=== PATIENT | male | born 1975 | race Caucasian/White ===

== ENCOUNTER → 2020-08-18 09:40 | Outpatient (BNVA) | payer MEDICAID, SELFPAY | PROVIDERS: Family Provider Family Medicine; PCP Family Medicine; Visit Provider Nurse Practitioner | DX: F33.1 Major depressive disorder, recurrent, moderate (principal); F15.21 Other stimulant dependence, in remission; F17.210 Nicotine dependence, cigarettes, uncomplicated; F41.1 Generalized anxiety disorder | CPT/HCPCS: 99215 ==

== ENCOUNTER 2020-09-08 18:32 | Emergency (ER) | payer MEDICAID, SELFPAY ==
--- NOTE | 2020-09-08 18:39 | ECG_ITS ---
[facility] Test Date: 2020-09-08 Pat Name: Fran Salinas Department: Room: Gender: Male Stone [employer] Sander: : 1975 Requested By: Javed Dozier Order Number: [id number] Shirley MD: Mona Echavarria M.D. Measurements Intervals [place] Rate: 82 P: 40 NM: 160 QRS: -27 QRSD: 90 T: 44 QT: 329 QTc: 384 Interpretive Statements SINUS RHYTHM BORDERLINE LEFT AXIS DEVIATION [QRS AXIS < -20] Compared to ECG 01/03/2018 16:58:03 No significant changes Electronically Signed On 09-09-2020 18:25:58 CDT by Mona Echavarria M.D. [email or web address] [id number]
--- NOTE | 2020-09-08 18:39 | XRR_ITS ---
PROCEDURE INFORMATION: Exam: XR Chest Exam date and time: 09/08/2020 6:51 PM Age: 44 years old Clinical indication: Left-sided chest pain; Additional info: Cp TECHNIQUE: Imaging protocol: XR of the chest. Views: 1 view. COMPARISON: CR Chest 1 [place] [id number] 03/04/2018 12:26 AM FINDINGS: The lungs are clear of infiltrate. There are no pleural effusions or pneumothorax. The heart size and pulmonary vascularity are normal. XR/XR chest 1V portable [id number] IMPRESSION: No active disease. The
[2020-09-08 18:41] VITALS: BP 151/89; PULSE 88; RESP 18; TEMP 36.7; O2SAT 99; BMI 35.6
[2020-09-08 18:56] VITALS: BP 161/92; PULSE 87; RESP 23; O2SAT 99
[2020-09-08 19:16] VITALS: BP 154/80; PULSE 82; RESP 25; O2SAT 98
[2020-09-08 19:20] LABS: Basophils # 0.1 10^3/uL (0.0-0.1); Basophils % 0.8 %; Eosinophils # 0.1 10^3/uL (0.0-0.8); Eosinophils % 2.1 %; Hematocrit 39.1 % (42.0-52.0); Hemoglobin 11.6 g/dL (11.7-16.6); Lymphocytes # 0.9 10^3/uL (0.8-4.8); Lymphocytes % 14.2 %; Mean Corpuscular HGB Conc 29.7 g/dL (30.0-36.0); Mean Corpuscular Hemoglobin 28.1 pg (28.0-34.0); Mean Corpuscular Volume 94.7 fL (80-94); Mean Platelet Volume 10.2 fL (7.4-10.4); Monocytes # 0.7 10^3/uL (0.2-0.9); Monocytes % 10.1 %; Neutrophils # 4.75 10^3/uL (1.8-7.7); Neutrophils % 72.5 %; Nucleated Red Blood Cells % 0 %; Platelet Count 207 10^3/cmm (130-400); Red Blood Count 4.13 10^6/uL (4.1-5.3); Red Cell Distribution Width 14.9 % (12.1-15.1); White Blood Count 6.6 10^3/uL (4.0-10.0)
[2020-09-08 19:42] LABS: Alanine Aminotransferase 17 U/L (0-41); Albumin Level 4.1 g/dL (3.5-5.2); Alkaline Phosphatase 63 IU/L (40-130); Aspartate Amino Transferase 25 U/L (0-40); Blood Urea Nitrogen 10 mg/dL (6-20); Calcium 8.2 mg/dL (8.5-10.5); Carbon Dioxide 20 mmol/L (22-29); Chloride 107 mmol/L (98-107); Glomerular Filtration Rate 92.1 mL/min (90-130); Glucose 90 mg/dL (65-115); Lipase 55 U/L (13-60); Osmolality Calculated 287 mOsm/kg (285-295); Sodium 139 mmol/L (136-145); Total Bilirubin 0.2 mg/dL (0.15-1.2); Total Protein 6.1 g/dL (6.6-8.7)
[2020-09-08 19:46] LABS: Troponin(5th) Baseline 6 ng/L (0-15)
[2020-09-08 19:53] LABS: Anion Gap 16.6 (5-19); Potassium 4.6 mmol/L (3.5-5.1)
[2020-09-08 20:32] VITALS: BP 125/80; PULSE 80; RESP 22; O2SAT 100
--- NOTE | 2020-09-08 20:39 | ECG_ITS ---
[facility] Test Date: 2020-09-08 Pat Name: Fran Salinas Department: Room: Gender: Male Certified Respiratory Therapist: : 1975 Requested By: Javed Dozier Order Number: [id number] Shirley MD: Mona Echavarria M.D. Measurements Intervals [place] Rate: 75 P: 41 RI: 164 QRS: -23 QRSD: 87 T: 38 QT: 346 QTc: 388 Interpretive Statements SINUS RHYTHM WITH SINUS ARRHYTHMIA BORDERLINE LEFT AXIS DEVIATION [QRS AXIS < -20] Compared to ECG 01/03/2018 16:58:03 No significant changes Electronically Signed On 09-09-2020 18:27:54 CDT by Mona Echavarria M.D. [id number]
[2020-09-08 20:48] LABS: Amphetamines Screen Urine Negative (Negative); Barbiturates Screen Urine Negative (Negative); Benzodiazepines Screen Urine Negative (Negative); Cocaine Screen Urine Negative (Negative); Opiate Screen Urine Negative (Negative); PCP Screen Urine Negative (Negative); THC Screen Urine Negative (Negative)
[2020-09-08 21:25] LABS: Troponin 5 2HR Delta 0 ABS# (0-10)
--- NOTE | 2020-09-08 22:07 | W.ED.CHESTPA ---
HPI - Chest Pain General: Chief Complaint: Chest Pain Stated Complaint: CP/left arm pain Time Seen by Provider: 09/08/20 18:44 Source: patient Mode of arrival: ambulatory Limitations: no limitations History of Present Illness: HPI narrative: 44 male patient presents to ER with left sided chest pain that radiates down his arm. pt states this has been going on for about a month and is intermittent. Pt stats it seems worse with exertion. Pt stats he is a past meth addict but has not used in 37 days. pt denies any fever, shortness of breath, diaphoresis or nausea pt states his pain is currenty gone. pt states he has hx of high blood pressure both otherwise healthy Associated symptoms: Deny abdominal pain, diaphoresis, dyspnea, fever(s), nausea, palpitations, syncope or vomiting Review of Systems Const: Denies: fever(s), chills, body aches, change in appetite, change in weight, fatigue, malaise or diaphoresis Eyes: Denies: change in vision, blurry vision, blind spots, photophobia, eye discomfort, eye discharge, eye redness, floaters or seeing flashes ENMT: Denies: throat pain, uvular edema, enlarged tonsils, odynophagia, hoarseness, mouth pain, swelling of lips/tongue, oral sores, bleeding gums, dental pain, dry mouth, ear or mastoid pain, ear discharge, change in hearing, tinnitus, disequilibrium, nasal discharge, nasal congestion, post nasal drip or sinus pain Card: Reports: chest pain; Denies: palpitations, irregular heart rhythm, edema, swelling of feet/ankles, lightheadedness, syncope, pre-syncope, dyspnea on exertion, orthopnea, leg pain with exertion or acrocyanosis Resp: Denies: dyspnea, productive cough, non-productive cough, wheezing, stridor, pain on inspiration, change in phlegm color, hemoptysis or chest congestion GI: Denies: abdominal pain, nausea, vomiting, hematemesis, dysphagia, diarrhea, constipation, GI cramping, change in bowel habits or rectal pain : Denies: flank pain, dysuria, urinary frequency, urinary urgency, urinary hesitancy or hematuria Musc: Denies: neck pain, back pain, extremity pain, extremity swelling, joint pain, joint swelling, joint redness, joint warmth or deformity Skin/Breast: Denies: rash, pruritus, erythema, sores, new lesions, changes in skin color or dry skin Neuro: Denies: headache(s), numbness in extremities, weakness in extremities, sensory changes, lack of coordination, difficulty walking, frequent falls, dizziness, vertigo, confusion, behavioral changes, Slurred speech present, difficulty communicating thoughts or seizure-like activity Psych: Denies: anxiety, depression, suicidal ideation or homicidal ideation Endo: Denies: polyuria, polydipsia, tired all the time, cold intolerance, excessive sweating, flushing, hot flashes or heat intolerance Félix/Lymph: Denies: easy bruising, easy bleeding, petechiae, purpura, enlarged lymph nodes or tender lymph nodes All/Imm: Denies: urticaria, throat swelling, tongue swelling, facial swelling, acute wheezing or itchy eyes PFSH ED PFSH: Medical History Adderall use disorder, moderate, in sustained remission, in controlled environment, dependence Generalized anxiety disorder Major depressive disorder, recurrent, moderate Nicotine dependence, cigarettes, uncomplicated Physical Exam Const: COMMON NORMALS: no acute distress, patient oriented x3, healthy appearing, alert and well nourished GENERAL APPEARANCE: cooperative, comfortable, well kempt and well developed; not ill appearing ORIENTATION/CONSCIOUSNESS: Yes awake, Yes oriented to person, Yes oriented to place and Yes oriented to time HENMT: COMMON NORMALS: normocephalic, atraumatic, hearing grossly normal bilaterally, external ears normal, EAC's normal, TM's normal bilaterally, Normal external nose present, Normal nasal mucous membranes and turbinates present and moist oral mucous membranes HEAD & SCALP: normal to inspection, normocephalic and atraumatic FACE & SINUS: normal facial exam, sinuses nontender and face symmetric NOSE: Normal external nose present, Normal nares present, Normal nasal mucous membranes and turbinates present, No nasal discharge present and Abnormal external nose present EXTERNAL EAR: Yes external ears normal and Yes mastoids normal EXTERNAL AUDITORY CANAL: EAC's normal TYMPANIC MEMBRANE: TM's normal bilaterally MOUTH: Normal oral and palatal mucosa present, lip normal, tongue normal and Normal salivary glands and ducts present THROAT: posterior oropharynx normal, tonsils normal and uvula midline; no uvular edema Eye: COMMON NORMALS: Equal, round and reactive pupils present, EOMs intact bilaterally, conjunctivae normal, no scleral icterus and no papilledema GENERAL EYE: appearance normal, both eyes and all related structures EYELID: eyelids normal CONJUNCTIVA: Yes conjunctivae normal SCLERA: sclerae normal CORNEA: Yes corneas normal PUPIL: Yes Equal, round and reactive pupils present DIRECT OPHTHALMOSCOPY: Yes no papilledema Neck/C-Spine: COMMON NORMALS: full ROM, no lymphadenopathy, supple, no meningeal signs, no JVD and Thyroid normal GENERAL: Yes normal visual inspection and Yes trachea midline THYROID: Thyroid normal CERVICAL SPINE: Yes cervical ROM normal Lymph: LYMPHATIC: no lymphadenopathy noted and no lymphedema noted Chest: COMMONS NORMALS: normal inspection of the chest and normal palpation of entire chest wall Resp: COMMON NORMALS: normal respiratory effort, No retractions, No use of accessory muscles and clear to auscultation bilaterally EFFORT & INSPECTION: Yes able to speak in complete sentences and Yes symmetric chest movement AUSCULTATION: clear to auscultation bilaterally Cardio: COMMON NORMALS: no JVD, regular rate and regular rhythm RATE: regular rate RHYTHM: regular rhythm GI: COMMON NORMALS: Normal to inspection, nondistended, normoactive bowel sounds present, Soft to palpation, non-tender, No hepatosplenomegaly present, no masses and no bruits INSPECTION: Yes normal to inspection AUSCULTATION: Yes normoactive bowel sounds PALPATION: Yes Soft to palpation and Yes No hepatosplenomegaly present PERCUSSION: normal to percussion RECTAL EXAM: Yes deferred : COMMON NORMALS: Yes no CVA tenderness BLADDER/KIDNEY EXAM: Yes no CVA tenderness Back/Pelvis: COMMON NORMALS: no CVA tenderness, thoracic and lumbar spine normal to inspection, no thoracic nor lumbar tenderness and thoraco-lumbar ROM normal THORACIC SPINE/UPPER BACK: Yes normal to inspection LUMBAR SPINE/LOWER BACK: Yes normal to inspection Extremity: COMMON NORMALS: normal to inspection, full ROM and capillary refill normal GENERAL: Yes normal exam except as noted Neuro: COMMON NORMALS: patient oriented x3, CN's II-XII intact bilaterally, moves all extremities, no focal motor deficits, no sensory deficits noted and gait normal SENSORIUM/ORIENTATION: Yes alert, Yes oriented to person, Yes oriented to place and Yes oriented to time MENINGEAL SIGNS: Yes no meningeal signs CRANIAL NERVES: Yes CN normal except as noted SPEECH: speech normal GAIT: Yes Normal gait present SENSORY EXAM: Yes extremities MOTOR EXAM: 5/5 motor strength present throughout Psych: COMMON NORMALS: mental status grossly normal, Normal thought process present, cooperative, normal affect, speech normal, activity/motor behavior normal, denies hallucinations, denies homicidal ideation and denies suicidal ideation APPEARANCE: Yes grossly normal and Yes well kempt ATTITUDE: Yes calm ACTIVITY/MOTOR BEHAVIOR: Yes appropriate eye contact SPEECH: Yes normal speech THOUGHT PROCESS: Normal thought process present THOUGHT CONTENT: Yes Normal thought content present ATTENTION/CONCENTRATION: Yes attention grossly intact MEMORY/COGNITION: Yes memory grossly intact INSIGHT: Good insight present (Psych) JUDGEMENT: Good judgement present (Psych) Skin: COMMON NORMALS: no rashes or lesions noted, no wounds, turgor normal, no jaundice, no petechiae and no mottling GENERAL SKIN EXAM: no rashes or lesions noted and turgor normal Course Vital Signs: Vital signs: Vital Signs Temperature 98.1 F 09/08/20 18:41 Pulse Rate 80 09/08/20 20:32 Respiratory Rate 22 H 09/08/20 20:32 Blood Pressure 125/80 09/08/20 20:32 Pulse Oximetry 100 09/08/20 20:32 MDM - Chest Pain MDM Narrative: Medical decision making narrative: Pt is well appearing non toxic and in no acute distress. chest xray does not reveal any acute findings. Pt EKG does not reveal any st elevation or depression delta trop is 0 this making cardiac ischemia unlikely. PE considered but patient denies shortness of breath states pain has been intermittent x 1 month pts vss no tachycarida. I do not feel further testing is warranted. I didscussed with patient need for stress test and will refer him to cardiology for such. pt is to follow up with pcp in 1-2 days. Pt states he wants to go home and feels like he does not need hospital observation Differential Diagnosis: Cardiac arrest differential diagnosis: Likely acute massive pulmonary embolism, acute respiratory failure and acute myocardial infarction Lab Data: Labs: Lab Results 09/08/20 09/08/20 09/08/20 Range/Units 19:13 19:13 19:13 WBC 6.6 (4.0-10.0) 10^3/ uL RBC 4.13 (4.1-5.3) 10^6/u L Hgb 11.6 L (11.7-16.6) g/dL Hct 39.1 L (42.0-52.0) % MCV 94.7 H (80-94) fL MCH 28.1 (28.0-34.0) pg MCHC 29.7 L (30.0-36.0) g/dL RDW 14.9 (12.1-15.1) % Plt Count 207 (130-400) 10^3/c mm MPV 10.2 (7.4-10.4) fL Neut % (Auto) 72.5 % Lymph % (Auto) 14.2 % Shelby % (Auto) 10.1 % Eos % (Auto) 2.1 % Baso % (Auto) 0.8 % Neut # (Auto) 4.75 (1.8-7.7) 10^3/u L Lymph # (Auto) 0.9 (0.8-4.8) 10^3/u L Shelby # (Auto) 0.7 (0.2-0.9) 10^3/u L Eos # (Auto) 0.1 (0.0-0.8) 10^3/u L Baso # (Auto) 0.1 (0.0-0.1) 10^3/u L Nucleated RBC % (a uto) 0 % Nucleated RBCs # 0.0 /100WBC Sodium 139 (136-145) mmol/L Potassium 4.6 (3.5-5.1) mmol/L Chloride 107 (98-107) mmol/L Carbon Dioxide 20 L (22-29) mmol/L Anion Gap 16.6 (5-19) BUN 10 (6-20) mg/dL Creatinine 0.9 (0.7-1.2) mg/dL GFR Calculation 92.1 (90-130) mL/min Glucose 90 (65-115) mg/dL Calculated Osmolal ity 287 (285-295) mOsm/k g Calcium 8.2 L (8.5-10.5) mg/dL Total Bilirubin 0.2 (0.15-1.2) mg/dL AST 25 (0-40) U/L ALT 17 (0-41) U/L Alkaline Phosphata se 63 (40-130) IU/L Troponin T Baselin e 6 (0-15) ng/L Troponin T 120 Min [place] (0-15) ng/L Delta Troponin T (0-10) ABS# Total Protein 6.1 L (6.6-8.7) g/dL Albumin 4.1 (3.5-5.2) g/dL Globulin 2.0 (1.3-4.6) g/dL Lipase 55 (13-60) U/L Urine Opiates Scre en (Negative) ng/mL Ur Barbiturates Sc reen (Negative) ng/mL Ur Phencyclidine S crn (Negative) ng/mL Ur Amphetamines Sc reen (Negative) ng/mL U Benzodiazepines Scrn (Negative) ng/mL Urine Cocaine Scre en (Negative) ng/mL U Marijuana (THC) Screen (Negative) ng/mL 09/08/20 09/08/20 Range/Units 20:34 21:03 WBC (4.0-10.0) 10^3/ uL RBC (4.1-5.3) 10^6/u L Hgb (11.7-16.6) g/dL Hct (42.0-52.0) % MCV (80-94) fL MCH (28.0-34.0) pg MCHC (30.0-36.0) g/dL RDW (12.1-15.1) % Plt Count (130-400) 10^3/c mm MPV (7.4-10.4) fL Neut % (Auto) % Lymph % (Auto) % Shelby % (Auto) % Eos % (Auto) % Baso % (Auto) % Neut # (Auto) (1.8-7.7) 10^3/u L Lymph # (Auto) (0.8-4.8) 10^3/u L Shelby # (Auto) (0.2-0.9) 10^3/u L Eos # (Auto) (0.0-0.8) 10^3/u L Baso # (Auto) (0.0-0.1) 10^3/u L Nucleated RBC % (a uto) % Nucleated RBCs # /100WBC Sodium (136-145) mmol/L Potassium (3.5-5.1) mmol/L Chloride (98-107) mmol/L Carbon Dioxide (22-29) mmol/L Anion Gap (5-19) BUN (6-20) mg/dL Creatinine (0.7-1.2) mg/dL GFR Calculation (90-130) mL/min Glucose (65-115) mg/dL Calculated Osmolal ity (285-295) mOsm/k g Calcium (8.5-10.5) mg/dL Total Bilirubin (0.15-1.2) mg/dL AST (0-40) U/L ALT (0-41) U/L Alkaline Phosphata se (40-130) IU/L Troponin T Baselin e (0-15) ng/L Troponin T 120 Min [place] 6.00 (0-15) ng/L Delta Troponin T 0 (0-10) ABS# Total Protein (6.6-8.7) g/dL Albumin (3.5-5.2) g/dL Globulin (1.3-4.6) g/dL Lipase (13-60) U/L Urine Opiates Scre en Negative (Negative) ng/mL Ur Barbiturates Sc reen Negative (Negative) ng/mL Ur Phencyclidine S crn Negative (Negative) ng/mL Ur Amphetamines Sc reen Negative (Negative) ng/mL U Benzodiazepines Scrn Negative (Negative) ng/mL Urine Cocaine Scre en Negative (Negative) ng/mL U Marijuana (THC) Screen Negative (Negative) ng/mL Discharge Plan Discharge Patient Disposition: Home Clinical Impression: Chest pain Qualifiers: Chest pain type: intercostal pain Qualified Code(s): R07.82 - Intercostal pain Condition: Stable Prescriptions: No Action mirtazapine 15 mg tablet 15 mg PO BEDTIME RF: 0 prazosin 2 mg capsule 2 mg PO BEDTIME RF: 0 losartan 25 mg tablet 25 mg PO DAILY RF: 0 Tylenol Extra Strength 500 mg Tablet 1,000 mg PO PRN RF: 0 ibuprofen 200 mg Tablet 400 mg PO PRN RF: 0 hydroxyzine pamoate 25 mg Capsule 25 mg PO TID PRN (Reason: Anxiety) RF: 0 Discharge Orders: Discharge ED (Routine); Ordered 09/08/20 Ordered By: Anusha Cintron Discharge Diet: Advance as tolerated Discharge Activity: Increase activity as tolerated Patient Instructions: Opioid Safety Activity Restrictions/Additional Instructions: ase management will call you with cardiology follow up for stress test Please follow up with your PCP in 1-2 days Please return to ER with any chest pain shortness of breath or any other concerning symptoms Coding Level of Care Code ED Nurses' Registry Director for Nadja Pina
[2020-09-08 22:28] VITALS: BP 138/73; PULSE 81; RESP 18; O2SAT 99
--- NOTE | 2020-09-09 10:33 | DCPLANNER ---
dairy bar manager had message to schedule a follow up appointment for patient with heart care. dairy bar manager called patient to ensure that patient wanted the referral to heart care, patient stated that he did. dairy bar manager called heart care, spoke with Ursula, gave clinic patients information, a follow up appointment was scheduled for , September 17, 2020 at 10:[address] Mondragon. dairy bar manager called patient and gave patient the appointment information.
--- NOTE | 2020-11-16 08:12 | DCPLANNER ---
Patient had a follow up appointment scheduled for 09.17.[address] Echavarria at [facility] - patient did attend appointment.
== END 2020-09-08 22:30 | disposition home or self-care (01) ==
PROVIDERS: Emergency Medicine; Emergency Provider Registered Nurse
DX: R07.82 Intercostal pain (principal)
CPT/HCPCS: 36415; 71045; 80053; 80306; 83690; 84484; 85025; 93005; 99283

== ENCOUNTER 2020-09-27 07:40 | Emergency (ER) | payer MEDICAID, SELFPAY ==
[2020-09-27 07:45] VITALS: BP 157/92; PULSE 107; RESP 18; TEMP 36.8; O2SAT 99; BMI 34.5
--- NOTE | 2020-09-27 07:51 | CTR_ITS ---
PROCEDURE INFORMATION: Exam: CT Head Without Contrast Exam date and time: 09/27/2020 7:56 AM Age: 44 years old Clinical indication: Injury or trauma; Fall; Blunt trauma (contusions or hematomas); Consciousness not specified; Additional info: Fall, head injury TECHNIQUE: Imaging protocol: Computed tomography of the head without contrast. Radiation optimization: All CT scans at this facility use at least one of these dose optimization techniques: automated exposure control; mA and/or kV adjustment per patient size (includes targeted exams where dose is matched to clinical indication); or iterative reconstruction. COMPARISON: MRI Head w/wo* [id number] 03/06/2017 8:29 AM RADIATION DOSE METRICS: Total DLP (mGy-cm): 900.94 FINDINGS: Brain: Normal. No hemorrhage. Unremarkable white matter. No mass effect. Cerebral ventricles: No ventriculomegaly. Paranasal sinuses: Mucosal thickening of ethmoid and maxillary sinuses. No fluid levels. Mastoid air cells: Visualized mastoid air cells are well aerated. Bones/joints: Unremarkable. No acute fracture. Soft tissues: Unremarkable. CT/CT head wo con* [id number] IMPRESSION: No acute intracranial abnormality. Radiation Dose CTDIVOL = (mGy): DLP = 900.94 (mGy-cm)
--- NOTE | 2020-09-27 07:51 | XRR_ITS ---
PROCEDURE INFORMATION: Exam: XR Chest Exam date and time: 09/27/2020 7:56 AM Age: 44 years old Clinical indication: Pain; Chest pressure; Additional info: Chest pain TECHNIQUE: Imaging protocol: XR of the chest. Views: 1 view. COMPARISON: CR (CHEST, ) 09/08/2020 6:51 PM FINDINGS: Lungs: No lobar consolidation. Pleural spaces: Unremarkable. No pleural effusion. No pneumothorax. Heart/Mediastinum: Stable cardiomediastinal silhouette. Bones/joints: Likely overlapping skin fold or partial density related to the lower right scapula manifest curvilinear opacity at the right lateral mid chest. XR/XR chest 1V portable [id number] IMPRESSION: 1. No acute cardiopulmonary process. 2. Probable partial summation densities or overlapping skin fold at the mid right lateral chest wall is doubtful for a pleural based or extrapleural abnormality. Finding was not definitely present on the recent comparison chest 09/08/2020. Further follow-up two view chest is recommended when patient's condition allows.
--- NOTE | 2020-09-27 07:53 | ECG_ITS ---
[facility] Test Date: 2020-09-27 Pat Name: Fran Salinas Department: Room: Gender: Male Process Expert: : 1975 Requested By: Moreno Blakely Order Number: [id number] Watson MD: Lalo Weathers M.D. Measurements Intervals [place] Rate: 82 P: 13 MN: 169 QRS: 86 QRSD: 85 T: 14 QT: 352 QTc: 413 Interpretive Statements SINUS RHYTHM Compared to ECG 09/08/2020 20:36:29 Sinus arrhythmia no longer present Electronically Signed On 09-27-2020 16:00:57 CDT by Lalo Weathers M.D. [id number]
--- NOTE | 2020-09-27 07:57 | W.ED.WEAKNES ---
HPI - Weakness General: Chief complaint: Dizziness Stated complaint: sob, cough n/v Time Seen by Provider: 09/27/20 07:43 Source: patient Limitations: no limitations History of Present Illness: HPI Narrative: Patient presents with 2-day history of generalized weakness with chills and sweats and cough. He does have some chest pain and left arm pain but this is also a chronic ongoing issue for him that he has been worked up with cardiology for. He states that yesterday he was throwing up and then has been very weak and dizzy today. Has also been coughing quite a bit. He states that he also slipped in the shower and fell and hit his head and had positive LOC. He states that he generally just feels weak all over. Complaint: generalized weakness Onset (ago): day(s) (2) Associated symptoms: Reports chest pain, chills, headache(s), nausea and vomiting Review of Systems Const: Reports: chills, body aches and fatigue Eyes: Denies: change in vision ENMT: Denies: throat pain or nasal congestion Card: Reports: chest pain Resp: Reports: non-productive cough GI: Reports: nausea and vomiting; Denies: abdominal pain : Denies: flank pain or difficulty urinating Musc: Denies: neck pain Skin/Breast: Denies: rash Neuro: Reports: headache(s) and dizziness Psych: Reports: anxiety Endo: Denies: polyuria All/Imm: Denies: urticaria or throat swelling PFS ED PFSH: Medical History Adderall use disorder, moderate, in sustained remission, in controlled environment, dependence Generalized anxiety disorder Major depressive disorder, recurrent, moderate Nicotine dependence, cigarettes, uncomplicated Family History Father Dementia Stroke Myocardial infarction Mother Myocardial infarction Social History Smoking and tobacco status: current every day smoker Alcohol intake: former Physical Exam Const: COMMON NORMALS: no acute distress and alert GENERAL APPEARANCE: cooperative and comfortable; not ill appearing ORIENTATION/CONSCIOUSNESS: Yes oriented to person, Yes oriented to place and Yes oriented to time HENMT: COMMON NORMALS: normocephalic and Normal external nose present HEAD & SCALP: normal to inspection and normocephalic FACE & SINUS: normal facial exam NOSE: Normal external nose present MOUTH: Normal oral and palatal mucosa present Eye: COMMON NORMALS: Equal, round and reactive pupils present PUPIL: Yes Equal, round and reactive pupils present EOM: No EOM abnormal Neck/C-Spine: COMMON NORMALS: full ROM and no JVD GENERAL: Yes normal visual inspection CERVICAL SPINE: Yes cervical ROM normal Resp: COMMON NORMALS: normal respiratory effort and clear to auscultation bilaterally AUSCULTATION: clear to auscultation bilaterally Cardio: COMMON NORMALS: no JVD, regular rate and regular rhythm RATE: regular rate RHYTHM: regular rhythm GI: COMMON NORMALS: Normal to inspection, nondistended, normoactive bowel sounds present, Soft to palpation, non-tender, No hepatosplenomegaly present, no masses and no bruits PALPATION: Yes Soft to palpation and Yes No hepatosplenomegaly present Neuro: SENSORIUM/ORIENTATION: Yes alert, Yes oriented to person, Yes oriented to place and Yes oriented to time CRANIAL NERVES: Yes CN normal except as noted Skin: TRAUMA: abrasion (Abrasion noted to the front of the forehead) Course Vital Signs: Vital signs: Vital Signs Temperature 98.3 F 09/27/20 07:45 Pulse Rate 76 09/27/20 10:15 Respiratory Rate 22 H 09/27/20 10:15 Blood Pressure 145/73 09/27/20 10:15 Pulse Oximetry 98 09/27/20 10:15 MDM - Weakness MDM Narrative: Medical decision making narrative: No significant abnormality noted on labs or imaging. [facility] Lab Data: Labs: Lab Results 09/27/20 09/27/20 09/27/20 Range/Units 08:10 08:10 08:10 WBC 8.7 (4.0-10.0) 10^3/ uL RBC 4.31 (4.1-5.3) 10^6/u L Hgb 12.3 (11.7-16.6) g/dL Hct 38.3 L (42.0-52.0) % MCV 88.9 (80-94) fL MCH 28.5 (28.0-34.0) pg MCHC 32.1 (30.0-36.0) g/dL RDW 15.5 H (12.1-15.1) % Plt Count 271 (130-400) 10^3/c mm MPV 9.9 (7.4-10.4) fL Neut % (Auto) 68.3 % Lymph % (Auto) 24.0 % [place] % (Auto) 6.1 % Eos % (Auto) 1.0 % Baso % (Auto) 0.3 % Neut # (Auto) 5.94 (1.8-7.7) 10^3/u L Lymph # (Auto) 2.1 (0.8-4.8) 10^3/u L [place] # (Auto) 0.5 (0.2-0.9) 10^3/u L Eos # (Auto) 0.1 (0.0-0.8) 10^3/u L Baso # (Auto) 0.0 (0.0-0.1) 10^3/u L Nucleated RBC % (a uto) 0 % Nucleated RBCs # 0.0 /100WBC Sodium 140 (136-145) mmol/L Potassium 5.2 H (3.5-5.1) mmol/L Chloride 104 (98-107) mmol/L Carbon Dioxide 21 L (22-29) mmol/L Anion Gap 20.2 H (5-19) BUN 21 H (6-20) mg/dL Creatinine 1.3 H (0.7-1.2) mg/dL GFR Calculation 60.2 L (90-130) mL/min Glucose 108 (65-115) mg/dL Calculated Osmolal ity 294 (285-295) mOsm/k g Lactic Acid 1.0 (0.5-2.2) mmol/L Calcium 9.0 (8.5-10.5) mg/dL Total Bilirubin 0.6 (0.15-1.2) mg/dL AST 20 (0-40) U/L ALT 17 (0-41) U/L Alkaline Phosphata se 68 (40-130) IU/L Troponin T Baselin e (0-15) ng/L Troponin T 120 Min [place] (0-15) ng/L Delta Troponin T (0-10) ABS# C-Reactive Protein 4.7 (0.0-4.9) mg/L Total Protein 7.1 (6.6-8.7) g/dL Albumin 4.8 (3.5-5.2) g/dL Globulin 2.3 (1.3-4.6) g/dL SARS-CoV-2 Ag (Rap id) (Negative) 09/27/20 09/27/20 09/27/20 Range/Units 08:10 08:10 09:57 WBC (4.0-10.0) 10^3/ uL RBC (4.1-5.3) 10^6/u L Hgb (11.7-16.6) g/dL Hct (42.0-52.0) % MCV (80-94) fL MCH (28.0-34.0) pg MCHC (30.0-36.0) g/dL RDW (12.1-15.1) % Plt Count (130-400) 10^3/c mm MPV (7.4-10.4) fL Neut % (Auto) % Lymph % (Auto) % [place] % (Auto) % Eos % (Auto) % Baso % (Auto) % Neut # (Auto) (1.8-7.7) 10^3/u L Lymph # (Auto) (0.8-4.8) 10^3/u L [place] # (Auto) (0.2-0.9) 10^3/u L Eos # (Auto) (0.0-0.8) 10^3/u L Baso # (Auto) (0.0-0.1) 10^3/u L Nucleated RBC % (a uto) % Nucleated RBCs # /100WBC Sodium (136-145) mmol/L Potassium (3.5-5.1) mmol/L Chloride (98-107) mmol/L Carbon Dioxide (22-29) mmol/L Anion Gap (5-19) BUN (6-20) mg/dL Creatinine (0.7-1.2) mg/dL GFR Calculation (90-130) mL/min Glucose (65-115) mg/dL Calculated Osmolal ity (285-295) mOsm/k g Lactic Acid (0.5-2.2) mmol/L Calcium (8.5-10.5) mg/dL Total Bilirubin (0.15-1.2) mg/dL AST (0-40) U/L ALT (0-41) U/L Alkaline Phosphata se (40-130) IU/L Troponin T Baselin e 8 (0-15) ng/L Troponin T 120 Min [place] 6.87 (0-15) ng/L Delta Troponin T -1.13 L (0-10) ABS# C-Reactive Protein (0.0-4.9) mg/L Total Protein (6.6-8.7) g/dL Albumin (3.5-5.2) g/dL Globulin (1.3-4.6) g/dL SARS-CoV-2 Ag (Rap id) Negative (Negative) Discharge Plan Discharge Patient Disposition: Home Clinical Impression: Vomiting Qualifiers: Vomiting type: unspecified CHI (closed head injury) Qualifiers: Encounter type: initial encounter Qualified Code(s): S09.90XA - Unspecified injury of head, initial encounter Condition: Stable Prescriptions: New Zofran 4 mg tablet 4 mg PO TID 5 Days Qty: 15 RF: 0 No Action cetirizine [Allergy Relief (cetirizine)] 10 mg tablet 10 mg PO DAILY PRNRF: 0 prazosin 2 mg capsule 2 mg PO BEDTIME RF: 0 losartan 25 mg tablet 25 mg PO DAILY RF: 0 Tylenol Extra Strength 500 mg Tablet 1,000 mg PO PRN RF: 0 ibuprofen 200 mg Tablet 400 mg PO PRN RF: 0 hydroxyzine pamoate 25 mg Capsule 25 mg PO TID PRN (Reason: Anxiety) RF: 0 Discharge Orders: Discharge ED (Routine); Ordered 09/27/20 Ordered By: Moreno Blakely Discharge Diet: Advance as tolerated Discharge Activity: Resume usual activity Patient Instructions: Opioid Safety Coding Level of Care Code ED Gaggerman for Nadja Fwd Exam Comprehensive
[2020-09-27 08:00] VITALS: BP 128/85; PULSE 102; RESP 18; O2SAT 97
[2020-09-27] MEDS: sodium chloride 0.9% 1,000 ML 999 ML IV (08:05)
[2020-09-27] MEDS: ondansetron 2 mg/ML SDV 2 mL 4 MG IVP (08:06)
[2020-09-27 08:25] LABS: Basophils % 0.3 %; Eosinophils # 0.1 10^3/uL (0.0-0.8); Hematocrit 38.3 % (42.0-52.0); Hemoglobin 12.3 g/dL (11.7-16.6); Lymphocytes # 2.1 10^3/uL (0.8-4.8); Mean Corpuscular HGB Conc 32.1 g/dL (30.0-36.0); Mean Corpuscular Hemoglobin 28.5 pg (28.0-34.0); Mean Corpuscular Volume 88.9 fL (80-94); Mean Platelet Volume 9.9 fL (7.4-10.4); Monocytes # 0.5 10^3/uL (0.2-0.9); Monocytes % 6.1 %; Neutrophils # 5.94 10^3/uL (1.8-7.7); Neutrophils % 68.3 %; Nucleated Red Blood Cells % 0 %; Platelet Count 271 10^3/cmm (130-400); Red Blood Count 4.31 10^6/uL (4.1-5.3); Red Cell Distribution Width 15.5 % (12.1-15.1); White Blood Count 8.7 10^3/uL (4.0-10.0)
[2020-09-27 08:47] LABS: Alanine Aminotransferase 17 U/L (0-41); Albumin Level 4.8 g/dL (3.5-5.2); Alkaline Phosphatase 68 IU/L (40-130); Aspartate Amino Transferase 20 U/L (0-40); Blood Urea Nitrogen 21 mg/dL (6-20); C Reactive Protein 4.7 mg/L (0.0-4.9); Carbon Dioxide 21 mmol/L (22-29); Chloride 104 mmol/L (98-107); Globulin 2.3 g/dL (1.3-4.6); Glomerular Filtration Rate 60.2 mL/min (90-130); Glucose 108 mg/dL (65-115); Osmolality Calculated 294 mOsm/kg (285-295); Sodium 140 mmol/L (136-145); Total Bilirubin 0.6 mg/dL (0.15-1.2); Total Protein 7.1 g/dL (6.6-8.7); Troponin(5th) Baseline 8 ng/L (0-15)
[2020-09-27 08:55] LABS: SARS Covid-2 Antigen Negative (Negative)
--- NOTE | 2020-09-27 09:11 | XRR_ITS ---
PROCEDURE INFORMATION: Exam: XR Chest Exam date and time: 09/27/2020 9:17 AM Age: 44 years old Clinical indication: Pain; Cough; Chest pressure; Additional info: Abnormal 1 view cxr, chest pain TECHNIQUE: Imaging protocol: XR of the chest. Views: 2 views. COMPARISON: CR (CHEST, ) 09/27/2020 8:00 AM FINDINGS: Lungs: Hyperinflation and mild interstitial prominence, without acute airspace disease. Pleural spaces: No pleural effusion. Heart/Mediastinum: No cardiomegaly. Bones/joints: Unremarkable. When correlating with the previous study, no significant interval changes are present. XR/XR chest 2V* [id number] IMPRESSION: Hyperinflation and mild interstitial prominence, without acute airspace disease.
[2020-09-27 09:29] LABS: Anion Gap 20.2 (5-19); Potassium 5.2 mmol/L (3.5-5.1)
[2020-09-27 09:30] VITALS: BP 130/77; PULSE 74; RESP 20; O2SAT 97
[2020-09-27 10:15] VITALS: BP 145/73; PULSE 76; RESP 22; O2SAT 98
[2020-09-27 10:20] LABS: Troponin 5 2HR 6.87 ng/L (0-15)
[2020-09-27 10:25] LABS: Troponin 5 2HR Delta -1.13 ABS# (0-10)
== END 2020-09-27 10:09 | disposition home or self-care (01) ==
PROVIDERS: Emergency Provider Emergency Medicine
DX: S09.8XXA Other specified injuries of head, initial encounter (principal); R11.11 Vomiting without nausea; F17.210 Nicotine dependence, cigarettes, uncomplicated; W18.2XXA Fall in (into) shower or empty bathtub, initial encounter
CPT/HCPCS: 70450; 71045; 71046; 80053; 83605; 84484; 85025; 86140; 87426; 93005; 96360; 99284; J2405; J7030

== ENCOUNTER → 2020-11-18 11:46 | Outpatient (BNVA) | payer MEDICAID, SELFPAY | PROVIDERS: PCP Nurse Practitioner Family; Referring Provider Nurse Practitioner Family; Visit Provider Specialist | DX: S42.302A Unspecified fracture of shaft of humerus, left arm, initial encounter for closed fracture (principal); W19.XXXA Unspecified fall, initial encounter | CPT/HCPCS: 73030 ==

== ENCOUNTER → 2020-12-09 15:00 | Outpatient (BNVA) | payer MEDICAID, SELFPAY | PROVIDERS: PCP Nurse Practitioner Family; Visit Provider Specialist | DX: S42.292A Other displaced fracture of upper end of left humerus, initial encounter for closed fracture (principal); X58.XXXA Exposure to other specified factors, initial encounter | CPT/HCPCS: 73030 ==

== ENCOUNTER 2020-12-20 19:32 | Emergency (ER) | payer MEDICAID, SELFPAY ==
[2020-12-20 19:33] VITALS: BP 154/98; PULSE 114; RESP 22; TEMP 36.6; O2SAT 94; BMI 33.0
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
[2020-12-20 20:00] VITALS: BP 126/46; PULSE 103; PULSE 99; RESP 18; RESP 20; O2SAT 98; O2SAT 99
[2020-12-20 20:11] VITALS: RESP 25
[2020-12-20] MEDS: HYDROmorphone 1 mg/mL INJ 1 mL IVP (20:11)
[2020-12-20] MEDS: fluorescein 1 mg Strip EYE-LEFT ×2 (20:11)
[2020-12-20] MEDS: ondansetron 2 mg/ML SDV 2 mL 4 MG IVP (20:12)
[2020-12-20] MEDS: eye irrigation 30 mL Btl EYE-LEFT (20:21)
[2020-12-20] MEDS: tetracaine 0.5% Op Soln 4 mL Btl 1 DROP EYE-LEFT (20:22)
[2020-12-20] MEDS: lidocaine 1% INJ 20 mL INJECTION (20:24)
[2020-12-20 21:00] VITALS: BP 150/94; PULSE 90; RESP 18; O2SAT 96
[2020-12-20] MEDS: fentaNYL 50 mcg/mL INJ 2mL IVP (21:00)
[2020-12-20] MEDS: tetanus-dipt-pertussis 0.5 mL SDV IM (21:03)
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
[2020-12-20] MEDS: ampicillin-sulbactam 3 GM in sodium chloride 0.9% (plus) 50 ML IV (21:14)
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
== END 2020-12-20 21:37 ==
PROVIDERS: Emergency Provider Emergency Medicine
DX: F17.200 Nicotine dependence, unspecified, uncomplicated (principal); S02.40FA Zygomatic fracture, left side, initial encounter for closed fracture; S02.842A Fracture of lateral orbital wall, left side, initial encounter for closed fracture; S02.0XXA Fracture of vault of skull, initial encounter for closed fracture; H40.3 Glaucoma secondary to eye trauma; Y04.2XXA Assault by strike against or bumped into by another person, initial encounter
CPT/HCPCS: 70450; 70486; 90471; 90715; 96365; 96375; 99285; J0295; J1170; J2405; J3010

== ENCOUNTER 2020-12-28 06:00 | Outpatient (CLI) | payer MEDICAID, SELFPAY | END 2020-12-28 06:01 | disposition home or self-care (01) | LOC: RAD 09-09 14:17 | PROVIDERS: PCP Nurse Practitioner Family; Visit Provider Specialist | DX: S42.292D Other displaced fracture of upper end of left humerus, subsequent encounter for fracture with routine healing (principal); W19.XXXD Unspecified fall, subsequent encounter | CPT/HCPCS: 73030 ==

== ENCOUNTER 2021-01-04 07:59 | Emergency (ER) | payer MEDICAID, SELFPAY ==
[2021-01-04 08:36] VITALS: BMI 34.4
--- NOTE | 2021-01-04 08:36 | CTR_ITS ---
PROCEDURE INFORMATION: Exam: CT Head Without Contrast Exam date and time: 01/04/2021 8:36 AM Age: 45 years old Clinical indication: Pain; Headache; Prior surgery; Surgery date: <1 month; Additional info: Closed head injury TECHNIQUE: Imaging protocol: Computed tomography of the head without contrast. Radiation optimization: All CT scans at this facility use at least one of these dose optimization techniques: automated exposure control; mA and/or kV adjustment per patient size (includes targeted exams where dose is matched to clinical indication); or iterative reconstruction. COMPARISON: CT head wo con* [id number] 12/20/2020 8:22 PM RADIATION DOSE METRICS: Total DLP (mGy-cm): 931.03 FINDINGS: Brain: Normal. No hemorrhage. Unremarkable white matter. No mass effect. Cerebral ventricles: No ventriculomegaly. Paranasal sinuses: Visualized sinuses are unremarkable. No fluid levels. Mastoid air cells: Visualized mastoid air cells are well aerated. Bones/joints: Again noted are multiple fractures of the left orbit zygoma and frontal bone which now have multiple fixation screws. Soft tissues: Unremarkable. CT/CT head wo con* [id number] IMPRESSION: 1. No acute intracranial abnormality. 2. Left orbital and frontal bone fractures are again noted. Radiation Dose CTDIVOL = (mGy): DLP = 931.03 (mGy-cm)
[2021-01-04 08:43] VITALS: BP 144/94; PULSE 60; RESP 18; TEMP 36.8; O2SAT 97
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
[2021-01-04 09:20] LABS: Basophils % 0.5 %; Eosinophils # 0.2 10^3/uL (0.0-0.8); Eosinophils % 2.9 %; Hematocrit 37.2 % (42.0-52.0); Lymphocytes # 2.1 10^3/uL (0.8-4.8); Lymphocytes % 31.1 %; Mean Corpuscular HGB Conc 32.3 g/dL (30.0-36.0); Mean Corpuscular Hemoglobin 30.2 pg (28.0-34.0); Mean Corpuscular Volume 93.5 fl (80-94); Mean Platelet Volume 10.2 fL (7.4-10.4); Monocytes # 0.5 10^3/uL (0.2-0.9); Monocytes % 7.8 %; Neutrophils # 3.81 10^3/uL (1.8-7.7); Neutrophils % 57.2 %; Nucleated Red Blood Cells % 0 %; Platelet Count 255 10^3/cmm (130-400); Red Blood Count 3.98 10^6/uL (4.1-5.3); Red Cell Distribution Width 13.2 % (12.1-15.1); White Blood Count 6.7 10^3/uL (4.0-10.0)
[2021-01-04 09:26] VITALS: RESP 18
[2021-01-04] MEDS: morphine 4 mg/mL SDV 1 mL IVP (09:26)
[2021-01-04] MEDS: promethazine 25 mg/mL SDV 1 mL IM (09:26)
[2021-01-04 09:29] VITALS: BP 141/90; PULSE 62; RESP 18; O2SAT 96
[2021-01-04 09:38] LABS: Anion Gap 14.2 (5-19); Blood Urea Nitrogen 9 mg/dL (6-20); Calcium 9.1 mg/dL (8.5-10.5); Carbon Dioxide 26 mmol/L (22-29); Chloride 106 mmol/L (98-107); Glomerular Filtration Rate 122.5 mL/min (90-130); Glucose 97 mg/dL (65-115); Osmolality Calculated 293 mOsm/kg (285-295); Potassium 4.2 mmol/L (3.5-5.1); Sodium 142 mmol/L (136-145)
[2021-01-04 10:13] VITALS: BP 146/84; PULSE 61; RESP 18; O2SAT 96
== END 2021-01-04 10:15 | disposition home or self-care (01) ==
PROVIDERS: Emergency Provider Family Medicine; PCP Nurse Practitioner Family
DX: G44.89 Other headache syndrome (principal); F17.210 Nicotine dependence, cigarettes, uncomplicated
CPT/HCPCS: 70450; 80048; 85025; 96372; 96374; 99283; J2270; J2550

== ENCOUNTER 2021-08-03 08:39 | Outpatient (CLI) | payer MEDICAID, SELFPAY ==
--- NOTE | 2021-08-03 | XR_ITS ---
WS: [id number] XR wrist RT min 3V* [id number] REASON FOR EXAM: RIGHT HAND PAIN FINDINGS: No acute fracture or focal bone lesion. Joint spaces of the right wrist are intact and well preserved. No soft tissue abnormality. XR/XR wrist RT min 3V* [id number] IMPRESSION: No significant abnormality.
--- NOTE | 2021-08-03 08:53 | XR_ITS ---
WS: [id number] XR hand RT min 3V* [id number] REASON FOR EXAM: R HAND PAIN FINDINGS: No acute fracture or focal bone lesion. Mild narrowing of the joint spaces with mild subchondral sclerosis and small marginal osteophytes in the PIP and DIP joints of the fingers and thumb. Similar arthropathic findings in the metatarsal-phal angeal and carpal metacarpal joint of the thumb. There is a deformity of the base of the fifth metacarpal most likely representing old healed fracture . No soft tissue abnormality. XR/XR hand RT min 3V* [id number] IMPRESSION: Osteoarthritis with no acute finding.
== END 2021-08-03 08:40 | disposition home or self-care (01) ==
LOC: RAD 08:43
PROVIDERS: PCP Nurse Practitioner Family; Visit Provider Family Medicine
DX: M19.041 Primary osteoarthritis, right hand (principal)
CPT/HCPCS: 73110; 73130

== ENCOUNTER 2021-10-28 08:25 | Outpatient (CLI) | payer MEDICAID, SELFPAY ==
--- NOTE | 2021-10-28 08:38 | XR_ITS ---
WS: [id number] LEFT SHOULDER: 2 VIEW(S) TECHNIQUE: Internal and external rotation. HISTORY: L SHOULDER PAIN/L ARM PAIN COMPARISON: 07/28/2020 Healed fracture involving the posterior lateral LEFT humeral head. No malalignment. Glenohumeral and AC joints are unremarkable. Visualized LEFT upper lung is clear. XR/XR shoulder LT min 2V* [id number] IMPRESSION: 1. No acute fracture. 2. Healed fracture LEFT humeral head.
== END 2021-10-28 08:26 | disposition home or self-care (01) ==
PROVIDERS: PCP Nurse Practitioner Family; Visit Provider Nurse Practitioner Family
DX: M25.512 Pain in left shoulder (principal); M79.602 Pain in left arm
CPT/HCPCS: 73030

== ENCOUNTER → 2021-12-16 15:35 | Outpatient (BNVA) | payer MEDICAID, SELFPAY | PROVIDERS: PCP Nurse Practitioner Family; Visit Provider Surgery | DX: Z90.3 Acquired absence of stomach [part of] (principal); R14.0 Abdominal distension (gaseous); R10.9 Unspecified abdominal pain; Z98.84 Bariatric surgery status; K21.9 Gastro-esophageal reflux disease without esophagitis; Z86.010 Personal history of colon polyps | CPT/HCPCS: 99203 ==

== ENCOUNTER 2022-01-20 05:43 | Day surgery (SDC) | payer MEDICAID, SELFPAY ==
[2022-01-18 11:49] VITALS: BMI 36.6
[2022-01-20 06:00] VITALS: BP 193/99; PULSE 73; RESP 18; TEMP 36.3; O2SAT 98
--- NOTE | 2022-01-20 06:09 | W.PM.OPSFHP ---
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 It has been a long time since I have seen the patient in my practice since 2018.? Patient also reminded me that he had history of colon polyp and he is due for surveillance colonoscopy. Also complains of bloating especially with eating and excessive acid reflux and unfortunately he is smoking Current weight to 250 pounds with a BMI of 36 as he did regain weight Interim history 01/20/2022 Patient comes today for diagnostic EGD and colonoscopy ROS All systems have been reviewed negative except as for the above or per problem list. Medications/Allergies* Home Medications Medication Instructions Recorded Confirmed Type acetaminophen 500 mg tablet 1,000 mg PO PRN 09/08/20 01/18/22 History (Tylenol Extra Strength) hydroxyzine pamoate 25 mg capsule 25 mg PO TID PRN Anxiety 09/08/20 01/18/22 History cetirizine 10 mg tablet (Allergy 10 mg PO DAILY PRN allergies 09/17/20 01/18/22 History Relief (cetirizine)) omeprazole 20 mg capsule,delayed 20 mg PO DAILY 12/16/21 01/18/22 History release Allergies/Adverse Reactions Allergy/AdvReac Type Severity Reaction Status Date / Time lisinopril Allergy Severe swells up Verified 01/20/22 06:10 from it Penicillins Allergy Severe hives and Verified 01/20/22 06:10 feels like he is choking. Pertinent History/Comorbid Conditions* Medical History (Updated 12/17/21 @ 17:54 by Brett Ellis MD) Adderall use disorder, moderate, in sustained remission, in controlled environment, dependence Generalized anxiety disorder Major depressive disorder, recurrent, moderate Nicotine dependence, cigarettes, uncomplicated Family History (Updated 09/17/20 @ 11:21 by Brielle Singh RN) Dementia Father Myocardial infarction Father Mother Stroke Father Social History Smoking and tobacco status: current every day smoker Alcohol intake: former Pertinent Exam Findings alert, oriented x 3, regular rate & rhythm and procedure specific exam findings (Abdominal exam nontender nondistended soft) Recommendations Surgery/Procedure today (EGD and colonoscopy with possible biopsy) Coding Level of Care Code Acute Anesthesiologist Physician for Nadja Pina
[2022-01-20] MEDS: sodium chloride 0.9% 1,000 ML 30 ML IV (06:21)
--- NOTE | 2022-01-20 06:25 | ANES.PREANE2 ---
Pre-Anesthetic Assessment Height/Weight: Height 1.78 m Weight 115.666 kg Preop Diagnosis: Worsening acid reflux and history of colon polyps Operation Date: 01/20/22 07:00 Proposed Procedures p EGD and colonoscopy [id number],R14,R10.9(Not Applicable) - Brett Ellis MD s Colonoscopy(Not Applicable) - Brett Ellis MD Familial anesthetic complications: none Was Beta Radha taken within 24 hours: N/A Was Clonidine taken within 24 hours: N/A Last intake: Intake Last Liquid Date 01/19/22 Last Liquid Time 23:00 Last Solid Date 01/18/22 Last Solid Time 21:00 Social Alcohol (Social) and Tobacco (0.5 ppd, occ marijuana use) Exam alert, oriented x 3, clear to auscultation bilaterally and regular rate & rhythm Airway Submandibular: within normal limits Cervical ROM: within normal limits Mallampati: Class III Dentition: chipped Comments: Comments: Multiple missing teeth, bad dentition History/ROS No significant history except as noted and No significant complaints Pulmonary Shortness of Breath (with activity) seasonal allergies CV/HEM Hypertension None reported Hepatic None reported GI Gastroesophageal Reflux Disease and Peptic Ulcer Disease Metabolic Hyperlipidemia Musc/skel Lower Back Pain and Rheumatoid Arthritis Neuropsych Anxiety and Neuropathy Anesthetic Plan ASA status: 2 Anesthesia: Anesthesia Evaluation, General and MAC Risk of > 500 ml blood loss (7ml/kg in children): No Medications/Allergies Home Medications Medication Instructions Recorded Confirmed Last Taken Type acetaminophen 500 mg tablet 1,000 mg PO PRN 09/08/20 01/18/22 09/08/20 17:00 History (Tylenol Extra Strength) hydroxyzine pamoate 25 mg capsule 25 mg PO TID PRN Anxiety 09/08/20 01/18/22 01/18/22 History cetirizine 10 mg tablet (Allergy 10 mg PO DAILY PRN allergies 09/17/20 01/18/22 01/18/22 History Relief (cetirizine)) SHOULDER IMMOBILIZER #1 ea 11/18/20 12/17/21 Unknown Rx amitriptyline 25 mg tablet 25 mg PO DAILY #30 tabs 01/04/21 01/20/22 01/20/22 Rx omeprazole 20 mg capsule,delayed 20 mg PO DAILY 12/16/21 01/18/22 01/18/22 History release Allergies Allergy/AdvReac Type Severity Reaction Status Date / Time lisinopril Allergy Severe swells up Verified 01/20/22 06:10 from it Penicillins Allergy Severe hives and Verified 01/20/22 06:10 feels like he is choking. Current Medications Generic Name Dose Route Start Last Admin Trade Name Freq PRN Reason Stop Dose Admin Sodium Chloride 1,000 mls @ 30 mls/hr 01/20/22 06:00 01/20/22 06:21 Sodium Chloride 0.9% IV 01/21/22 05:59 30 mls/hr .Q24H PATRICK Administration PFSH Anesthesia Medical History Adderall use disorder, moderate, in sustained remission, in controlled environment, dependence Generalized anxiety disorder Major depressive disorder, recurrent, moderate Nicotine dependence, cigarettes, uncomplicated Family History Father Dementia Stroke Myocardial infarction Mother Myocardial infarction Social History Smoking and tobacco status: current every day smoker Alcohol intake: former Data Anesthesia Cardiac Studies: No Data to Display
[2022-01-20 07:48] VITALS: BP 102/51; PULSE 62; RESP 14; TEMP 36.1; O2SAT 98
[2022-01-20 08:03] VITALS: BP 123/67; PULSE 66; RESP 18; O2SAT 99
--- NOTE | 2022-01-20 14:25 | ANE.PACU2 ---
Inpatient post-anesthesia follow up: Airway intact: Yes Vital signs: Temperature 97 F Pulse Rate 66 Respiratory Rate 18 Blood Pressure 123/67 Pulse Oximetry 99 Oxygen Delivery Me thod Room Air Oxygen Flow Rate Fraction of Inspir ed Oxygen Hydration adequate: Yes Nausea and vomiting: No Pain level: 1 Mental status: Baseline
== END 2022-01-20 08:20 | disposition home or self-care (01) ==
PROVIDERS: PCP Nurse Practitioner Family; Visit Provider Surgery
PROC: 0DJ08ZZ Inspection of Upper Intestinal Tract, Via Natural or Artificial Opening Endoscopic (ICD-10-PCS; CPT 43235; principal; 2022-01-20 07:00)
PROC: 0DJD8ZZ Inspection of Lower Intestinal Tract, Via Natural or Artificial Opening Endoscopic (ICD-10-PCS; CPT 45378; 2022-01-20 07:00)
DX: Z12.11 Encounter for screening for malignant neoplasm of colon (principal); Z86.010 Personal history of colon polyps; Z98.84 Bariatric surgery status; K21.9 Gastro-esophageal reflux disease without esophagitis; K57.30 Diverticulosis of large intestine without perforation or abscess without bleeding; K22.70 Barrett's esophagus without dysplasia; I10 Essential (primary) hypertension; Z87.11 Personal history of peptic ulcer disease; E78.5 Hyperlipidemia, unspecified; F17.210 Nicotine dependence, cigarettes, uncomplicated
CPT/HCPCS: 43239; 45378; 88305; 88342; J0330; J2250; J2704; J7030

== ENCOUNTER 2023-04-24 14:18 | Inpatient (IN) | payer MEDICAID, SELFPAY ==
[2023-04-24 14:19] VITALS: BP 156/95; PULSE 98; RESP 17; TEMP 36.9; O2SAT 96; BMI 41.5
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
[2023-04-24 15:54] LABS: Amphetamines Screen Urine Positive (Negative); Barbiturates Screen Urine Negative (Negative); Benzodiazepines Screen Urine Negative (Negative); Blood Urine Neg (Negative); Cocaine Screen Urine Negative (Negative); Glucose Urine UA Norm (Normal); Ketones Urine 1+ (Negative); Nitrate Urine Negative (Negative); Opiate Screen Urine Negative (Negative); PCP Screen Urine Negative (Negative); Protein Urine Trace (Negative); Specific Gravity, Urine 1.025 (1.005-1.030); THC Screen Urine Negative (Negative); Urine Appearance SL Hazy (CLEAR); Urine Color Yellow (Yellow); pH Urine 5 (5-7)
[2023-04-24 15:55] LABS: Add Urine Microscopic? YES; Bilirubin Urine 1+ (Negative); Leukocyte Esterase Urine Negative (Negative); Urobilinogen Urine 4 mg/dL (Negative)
[2023-04-24 15:56] LABS: Bacteria Urine TRACE /hpf; Mucus Urine 2+ /hpf; RBC Urine 0-4 /hpf (0-2); Squamous Epithelial Cell Urine 0-4 /hpf (0-5); WBC Urine 0-4 /hpf (0-5)
[2023-04-24 15:57] LABS: Add Urine Culture? No
[2023-04-24 16:42] LABS: Basophils % 0.3 %; Eosinophils # 0.1 10^3/uL (0.0-0.8); Eosinophils % 0.7 %; Lymphocytes # 1.5 10^3/uL (0.8-4.8); Lymphocytes % 22.4 %; Mean Corpuscular HGB Conc 32.1 g/dL (30-55); Mean Corpuscular Hemoglobin 30.3 pg (27-33); Mean Corpuscular Volume 94.4 fl (82-101); Mean Platelet Volume 9.8 fL (7.4-10.4); Monocytes # 0.4 10^3/uL (0.2-0.9); Monocytes % 6.4 %; Neutrophils # 4.78 10^3/uL (1.8-7.7); Neutrophils % 69.9 %; Nucleated Red Blood Cells % 0 %; Platelet Count 250 10^3/cmm (157-399); Red Blood Count 4.45 10^6/uL (3.85-5.65); White Blood Count 6.84 10^3/uL (3.29-11.43)
--- NOTE | 2023-04-24 17:04 | PC.NURSE ---
Attempted to read 96 hour hold rights to patient. Patient refused for me to read them to him. He stated that this is bullshit you guys are keeping me from my two sons on [place]. I will fidencio the shit out of you. I want to talk to my judge. Attempted to read rights to patient again, he stated i know what the say. Copy of rights left at the beside against patients request. Patient requested this nurse to throw the rights away.
[2023-04-24 17:07] LABS: Alanine Aminotransferase 30 U/L (0-41); Albumin Level 4.3 g/dL (3.5-5.2); Alkaline Phosphatase 69 U/L (40-130); Anion Gap 13.5 (5-19); Aspartate Amino Transferase 30 U/L (0-40); Blood Urea Nitrogen 14 mg/dL (6-20); Carbon Dioxide 23 mmol/L (22-29); Chloride 106 mmol/L (98-107); Glomerular Filtration Rate 80.4 mL/min (90-130); Glucose 104 mg/dL (65-115); Osmolality Calculated 289 mOsm/kg (285-295); Potassium 3.5 mmol/L (3.5-5.1); Sodium 139 mmol/L (136-145); Total Bilirubin 0.4 mg/dL (0.15-1.2); Total Protein 7.3 g/dL (6.6-8.7)
[2023-04-24 17:08] LABS: Acetaminophen < 5.0 ug/mL (10-30); Alcohol Level < 10 mg/dL (0-10); Salicylate < 0.3 mg/dL (3-10)
[2023-04-24 18:04] VITALS: BP 147/94; PULSE 82; RESP 16; TEMP 36.6; O2SAT 96
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
[2023-04-24 20:07] VITALS: BP 164/73; PULSE 96; RESP 17; TEMP 36.7; O2SAT 96
--- NOTE | 2023-04-24 21:17 | PC.NURSE ---
IN BED RESTING AROUSES TO VOICE. PT IS WITHDRAWN AND ISOLATES TO ROOM. FLAT AFFECT NOTED AND IS GUARDED WITH STAFF. PT DENIES SI/HI AND AVH AT THIS TIME. RATES ANXIETY 3/10 AND DEPRESSION 2/10. PT DECLINES ANY MEDICATIONS TO HELP HIM SLEEP OR FOR ANXIETY. ALL QUESTIONS ANSWERED AND SUPPORT VOICE. PT STAYS IN BED AND CONTINUES TO REST. DENIES PAIN.
[2023-04-25 06:00] VITALS: RESP 16
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
--- NOTE | 2023-04-25 10:24 | PC.OT ---
OT EVALUATION ATTEMPTED 8:57 AM ON 04/25/2023. WILL ATTEMPT AT LATER TIME.
[2023-04-25] MEDS: acetaminophen 325 mg Tablet 650 MG PO (11:46)
[2023-04-25] MEDS: flu vacc pf 2023-24 (6 mos+) 60 MCG IM (12:18)
--- NOTE | 2023-04-25 12:22 | PC.NURSE ---
Flu vaccination administered to right deltoid. Patient tolerated well.
--- NOTE | 2023-04-25 12:28 | PC.NURSE ---
Patient denies avh and si/hi. He is tearful at times, but he says, the reason I'm like this is honestly because I'm excited to get back to my boys. Patient says he recently acquired a rental home with a friend of his and has yet to move into it. He states living with this friend will be beneficial because he is a good, nondenominational-going obdulio.
[2023-04-25 14:00] VITALS: BP 145/77; PULSE 81; RESP 20; TEMP 36.6; O2SAT 96
[2023-04-25 20:01] VITALS: BP 148/68; PULSE 78; RESP 17; TEMP 36.8; O2SAT 98
[2023-04-26 06:00] VITALS: RESP 16
[2023-04-26] MEDS: acetaminophen 325 mg Tablet 650 MG PO (09:18)
[2023-04-26 14:00] VITALS: BP 153/108; PULSE 76; RESP 16; TEMP 36.5; O2SAT 97
--- NOTE | 2023-04-26 14:37 | P.NPUPN_ITS ---
Subjective NPU 2 Subjective: Patient presented today reporting that he is feeling better. After significant resistance he eventually was able to acknowledge his behaviors that led to the police putting him on a 96-hour hold. For the past couple of days he has been trying to suggest that the information in the affidavits was a misunderstanding. He continues to report that he needs to get back to work and that there is no need for any significant medication intervention but he does acknowledge the need for outpatient treatment and having someone to speak to him. We discussed the possibility of discharge in the next 48 hours if his current behavior is consistent. Mental Status Exam 2 MSE Comments: This is an obese, white male, in hospital scrubs, with limited grooming and adequate eye contact. No abnormal movements. Cooperative with exam in no acute distress. Speech was normal rate and volume. Mood described as pretty good; affect congruent. Thought process, organized. Thought content: patient denied any suicidal or homicidal ideation, there were no delusions reported or noted, patient denied any auditory or visual hallucinations. Attention, concentration, and memory appeared intact, but none were formally tested. Alert and oriented times three. Insight and judgment appear limited. Impulse control is limited. Vitals/I&O/Wt Last Vital Signs Temp 98.2 F 04/25/23 20:01 Pulse 78 04/25/23 20:01 Resp 16 04/26/23 06:00 BP 148/68 04/25/23 20:01 Pulse Ox 98 04/25/23 20:01 O2 Del Method Room Air 04/25/23 20:01 Data NPU 04/24/23 16:05 04/24/23 16:05 A&P Assessment and plan (1) Major depressive disorder, recurrent, moderate: (2) Adderall use disorder, moderate, in sustained remission, in controlled environment, dependence: (3) Generalized anxiety disorder: (4) Suicidal ideation: (5) Methamphetamine use disorder, severe: (6) Acid reflux: (7) Esophagitis: (8) Gastritis: (9) History of colon polyps: (10) Diverticular disease of large intestine: (11) Bloating: Plan This is a 47-year-old white male with a long history of mental health and addiction issues who presents on a 96-hour hold after going to [facility] secondary to violating a restraining order. 1.? Will continue to consider medication 2.? Encourage individual, group, and milieu therapy. 3.? Continue q-15-minute checks for safety. 4.? Recommend sober living treatment at the highest level of care to which the patient is willing to commit. 5. Will evaluate for safety for discharge with the 96-hour hold. Involuntary Hold Information 2 96 Hour Hold: 96 Hour Involuntary Admission: Yes 96 Hour Hold Ending Date: 05/02/23 96 Hour Hold Ending Time: 00:01 Attestations NPU 2 Medical Necessity Statement*: Inpatient hospitalization is medically necessary and the clinically appropriate intervention, at this time. We will monitor medications and make changes as indicated. Likely length of stay is 1-3 days. Coding Level of Care Code Acute Code for g Fwd Diagnoses Major depressive disorder, recurrent, moderate F33.1 Adderall use disorder, moderate, in sustained remission, in controlled environment, dependence F15.21 Generalized anxiety disorder F41.1 Suicidal ideation R45.851 Methamphetamine use disorder, severe F15.20 Acid reflux K21.9 Esophagitis K20.90 Gastritis K29.70 History of colon polyps Z86.010 Diverticular disease of large intestine K57.30 Bloating R14.0
[2023-04-26 20:28] VITALS: BP 142/82; PULSE 77; RESP 18; TEMP 36.7; O2SAT 100
--- NOTE | 2023-04-26 21:06 | PC.NURSE ---
IN BED RESTING AROUSES TO VOICE. DENIES PAIN,SI/HI AND AVH AT THIS TIME. PT RATES ANXIETY 3/10 BUT ONLY BECAUSE HE IS DISCHARGING TOMORROW AND GETS TO SEE HIS SONS. RATES DEPRESSION 0/10. PT IS NOTED TO HAVE A BRIGHT AND CHEERFUL AFFECT DUE TO POSSIBLY BEING DISCHARGED TOMORROW. ALL QUESTIONS ANSWERED AND SUPPORT VOICED.
[2023-04-27 06:00] VITALS: RESP 16
[2023-04-27] MEDS: ibuprofen 600 mg Tablet PO (08:03)
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
[2023-04-27 12:08] VITALS: RESP 16
== END 2023-04-27 13:51 | disposition home or self-care (01) | DRG 885 ==
LOC: ER 17:12 → NP 17:39
PROVIDERS: Admitting Provider Psychiatry & Neurology Psychiatry; Emergency Provider Emergency Medicine; PCP Nurse Practitioner Family; Visit Provider Psychiatry & Neurology Psychiatry
DX: F33.1 Major depressive disorder, recurrent, moderate (principal); R45.851 Suicidal ideations; F15.20 Other stimulant dependence, uncomplicated; F41.1 Generalized anxiety disorder; F17.210 Nicotine dependence, cigarettes, uncomplicated; Z82.3 Family history of stroke; Z81.8 Family history of other mental and behavioral disorders
CPT/HCPCS: 80053; 80306; 80307; 81001; 85025; 90471; 90686; 97150; 97165; 99285

== ENCOUNTER 2023-05-07 11:48 | Emergency (ER) | payer MEDICAID, SELFPAY ==
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
[2023-05-07 11:58] VITALS: BP 160/102; PULSE 58; RESP 14; TEMP 36.7; O2SAT 96; BMI 36.7
--- NOTE | 2023-05-07 12:06 | W.ED.EXTPRO ---
HPI - Extremity Problem General: Chief complaint: Extremity Injury, Upper Stated complaint: left hand injury Time Seen by Provider: 05/07/23 11:50 Source: patient Mode of arrival: ambulatory Limitations: no limitations History of Present Illness: 47-year-old male states that he was working on his car Monday and a wrench was under tension and came back and struck him in his left hand. States he hit the dorsum of his hand. 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 Associated symptoms: Deny chest pain, fever(s) or rash Review of Systems Const: Denies: fever(s), chills, body aches or change in appetite ENMT: Denies: throat pain or dental pain Card: Denies: chest pain Resp: Denies: dyspnea GI: Denies: abdominal pain, nausea, vomiting or diarrhea Musc: Reports: extremity pain; Denies: neck pain or back pain Skin/Breast: Denies: rash Neuro: Denies: headache(s) PFSH ED PFSH: Medical History Psychiatric care Generalized anxiety disorder Nicotine dependence, cigarettes, uncomplicated Adderall use disorder, moderate, in sustained remission, in controlled environment, dependence Major depressive disorder, recurrent, moderate Family History Father Dementia Stroke Myocardial infarction Mother Myocardial infarction Social History Smoking and tobacco/nicotine status: current every day tobacco/nicotine user Alcohol intake: former Substance/Drug Use: former Date of last use: 60 days prior Physical Exam Const: COMMON NORMALS: no acute distress, patient oriented x3 and healthy appearing HENMT: COMMON NORMALS: normocephalic and atraumatic HEAD & SCALP: normocephalic and atraumatic Neck/C-Spine: COMMON NORMALS: full ROM and supple Chest: COMMONS NORMALS: normal inspection of the chest and normal palpation of entire chest wall Resp: COMMON NORMALS: normal respiratory effort Cardio: COMMON NORMALS: regular rate, regular rhythm and No murmurs present (Cardio) RATE: regular rate RHYTHM: regular rhythm Extremity: COMMON NORMALS: full ROM NARRATIVE EXTREMITY EXAM: Contusion noted to the dorsum of left hand no obvious deformity Neuro: COMMON NORMALS: patient oriented x3, moves all extremities and no focal motor deficits Psych: COMMON NORMALS: mental status grossly normal, Normal thought process present and cooperative THOUGHT PROCESS: Normal thought process present Skin: COMMON NORMALS: no rashes or lesions noted and no wounds GENERAL SKIN EXAM: no rashes or lesions noted Course Vital Signs: Vital signs: Vital Signs Temperature 98.0 F 05/07/23 11:58 Pulse Rate 58 L 05/07/23 11:58 Respiratory Rate 14 05/07/23 11:58 Blood Pressure 160/102 05/07/23 11:58 Pulse Oximetry 96 05/07/23 11:58 Oxygen Delivery Me thod Room Air 05/07/23 11:58 MDM - Extremity (Nontraumatic) Medical Decision Making Patient presents here with hand contusion x-ray shows no fracture patient stable for discharge follow-up PCP return if worsening. Medical Records I reviewed the patient's medical records. XR interpretation done by ED provider, pending radiology final review ED provider radiology interpretation(s): xr hand: no acute fx Discharge Plan Discharge Patient Disposition: Home Clinical Impression: Contusion of hand, left Qualifiers: Encounter type: initial encounter Qualified Code(s): S60.222A - Contusion of left hand, initial encounter Condition: Stable Prescriptions: No Action acetaminophen [Tylenol Extra Strength] 500 mg Tablet 1,000 mg PO PRN Discharge Orders: Discharge ED (Routine); Ordered 05/07/23 Ordered By: Javed Dozier Referrals: Marilee Rowell TOE STRIPPER [Primary Care Provider] - 1-3 days Discharge Diet: Advance as tolerated Discharge Activity: Resume usual activity Patient Instructions: Contusion in Adults (ED) Stand Alone Forms: Work/School Release Coding Level of Care Code ED Freight Separator for Nadja Pina
== END 2023-05-07 12:30 | disposition home or self-care (01) ==
PROVIDERS: Emergency Provider Emergency Medicine; PCP Nurse Practitioner Family
DX: S60.222A Contusion of left hand, initial encounter (principal); Z72.0 Tobacco use; W20.8XXA Other cause of strike by thrown, projected or falling object, initial encounter
CPT/HCPCS: 73130; 99283

== ENCOUNTER 2023-11-07 05:39 | Inpatient (IN) | payer SELFPAY ==
[2023-11-07] VITALS (7 sets, daily range): BP systolic 141–183; BP diastolic 55–117; PULSE 116–134; RESP 15–20; TEMP 36.7–36.8; O2SAT 97–100
--- NOTE | 2023-11-07 06:05 | ECG_ITS ---
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 Measurements Intervals [place] Rate: 121 P: 36 MN: 159 QRS: -52 QRSD: 87 T: 49 QT: 320 QTc: 455 Interpretive Statements SINUS TACHYCARDIA PATTERN CONSISTENT WITH PULMONARY DISEASE LEFT ANTERIOR FASCICULAR BLOCK [QRS AXIS <= -45, QR IN I, RS IN II] Compared to ECG 09/27/2020 08:31:52 Left anterior fascicular block now present Sinus rhythm no longer present Electronically Signed On 11-07-2023 23:26:39 CDT by Vickie Flaherty M.D. [email or web address]
--- NOTE | 2023-11-07 06:10 | ED.C_ITS ---
HPI - Psych 2 General: Chief Complaint: Psychiatric Symptoms Stated Complaint: MHE Time Seen by Provider: 11/07/23 05:46 Source: patient Mode of arrival: EMS History of Present Illness: 47-year-old male presents emergency room by EMS accompanied by law enforcement. Patient evidently has had interaction long [place] throughout the day at various times. He is currently going through divorce it is really contentious he has a no contact order with his . While enforcement reports he made some sort of social media video alluding to the idea of killing himself. He is having auditory and visual hallucinations while being interviewed by law enforcement to the kept referring to a woman and White who is walking around and there was no one present. He also alluded to multiple different people threatening him. he states his and his 15-year-old who were chasing him last night police eventually caught up with him barricaded inside of a conservation shed at that time he was armed with a hatchet. He does have a very small laceration on his chest. He did not make any attempt that they witnessed to harm himself. When I talked to the patient he states he works somewhere in [place] lives in [place] and listed a number of cities randomly throughout the [place] that he goes to work out. When I asked him how that was possible with him living in [place] and going to work at these different places he did not have any explanation. He denies any current suicidal ideation, the police did have a copy of the social media video he had made alluding to harming himself. Patient does have a history of Adderall abuse in the past. In March 2023 with patient was admitted to psychiatry unit for suicidal ideation, anxiety, methamphetamine and Adderall abuse MD complaint: suicidal ideation Relieving factors: none Exacerbating factors: none Associated psychiatric symptoms: suicidal ideation Associated symptoms: Reports auditory hallucinations, visual hallucinations, delusions and suicidal ideation Treatments prior to arrival: none Review of Systems 2 Const: Denies: fever(s) or chills Card: Denies: chest pain Resp: Denies: dyspnea GI: Denies: abdominal pain : Denies: dysuria, urinary frequency or urinary urgency Musc: Denies: neck pain or back pain Skin/Breast: Denies: rash Psych: Reports: visual hallucinations, auditory hallucinations and suicidal ideation [facility] ED 2 PFSH: Medical History Psychiatric care Generalized anxiety disorder Nicotine dependence, cigarettes, uncomplicated Adderall use disorder, moderate, in sustained remission, in controlled environment, dependence Major depressive disorder, recurrent, moderate Family History Father Dementia Stroke Myocardial infarction Mother Myocardial infarction Social History Smoking and tobacco/nicotine status: current every day tobacco/nicotine user Alcohol intake: current Alcohol intake frequency: holidays/special occasions only Alcohol type: hard liquor (rum a couple shots) Substance/Drug Use: former Date of last use: 15 days ago Physical Exam 2 Const: GENERAL APPEARANCE: cooperative and comfortable O RIENTATION/CONSCIOUSNESS: Yes awake HENMT: COMMON NORMALS: normocephalic, atraumatic and hearing grossly normal bilaterally HEAD & SCALP: normocephalic and atraumatic Resp: COMMON NORMALS: normal respiratory effort, No retractions, No use of accessory muscles and clear to auscultation bilaterally AUSCULTATION: clear to auscultation bilaterally Cardio: COMMON NORMALS: regular rhythm and No murmurs present (Cardio) R ATE: tachycardic RHYTHM: regular rhythm GI: COMMON NORMALS: Soft to palpation and No hepatosplenomegaly present A USCULTATION: Yes normoactive bowel sounds PALPATION: Yes Soft to palpation, No Tenderness to palpation present (GI), No Guarding due to palpation present (GI) and Yes No hepatosplenomegaly present Extremity: COMMON NORMALS: normal to inspection, capillary refill normal, no clubbing, cyanosis or edema, no calf tenderness and no pedal edema Psych: APPEARANCE: Yes unkempt ATTITUDE: Yes paranoid THOUGHT CONTENT: Y es delusions and Yes Hallucination(s) present INSIGHT: Poor insight present (Psych) JUDGEMENT: Poor judgement present (Psych) Skin: COMMON NORMALS: no rashes or lesions noted GENERAL SKIN EXAM: no rashes or lesions noted OTHER: 1 cm laceration in the center of the evelia st at the level of the nipple no active bleeding. Course 2 Vital Signs: Vital signs: Vital Signs Temperature 98.2 F 11/07/23 05:58 Pulse Rate 122 H 11/07/23 13:23 Respiratory Rate 18 11/07/23 06:30 Blood Pressure 141/91 11/07/23 13:23 Pulse Oximetry 98 11/07/23 12:28 Oxygen Delivery Me thod Room Air 11/07/23 06:30 MDM - Psych Medical Decision Making Prolonged ER course initially we did not have any psych beds have been trying to find arrangements for transfer throughout the day were unable to successfully make arrangements. Partially delayed by his abnormal labs which were corrected with fluids and retested. Later in the afternoon we did find a bed had opened up on her own unit I talked Dr. Frias and will admit to our unit here. Patient has acute psychosis methamphetamine related. He has adjustment disorder and he is having suicidal ideation and threats. Will admit discussed with Dr. Frias. Orders written. Medical Records I reviewed the patient's medical records. Lab Data I reviewed the patient's lab results. 11/07/23 05:55 11/07/23 12:07 Laboratory Results WBC 9.92 10^3/uL (3.29-11.43) 11/07/23 05:55 RBC 5.02 10^6/uL (3.85-5.65) 11/07/23 05:55 Hgb 15.30 g/dL (11.27-16.99) 11/07/23 05:55 Hct 46.5 % (37-53) 11/07/23 05:55 MCV 92.6 fl (82-101) 11/07/23 05:55 MCH 30.5 pg (27-33) 11/07/23 05:55 MCHC 32.9 g/dL (30-55) 11/07/23 05:55 RDW 13.4 % (12.1-15.1) 11/07/23 05:55 Plt Count 192 10^3/cmm (157-399) 11/07/23 05:55 MPV 10.2 fL (7.4-10.4) 11/07/23 05:55 Neut % (Auto) 73.4 % 11/07/23 05:55 Lymph % (Auto) 17.7 % 11/07/23 05:55 Cotton % (Auto) 8.2 % 11/07/23 05:55 Eos % (Auto) 0.0 % 11/07/23 05:55 Baso % (Auto) 0.4 % 11/07/23 05:55 Neut # (Auto) 7.28 10^3/uL (1.8-7.7) 11/07/23 05:55 Lymph # (Auto) 1.8 10^3/uL (0.8-4.8) 11/07/23 05:55 Cotton # (Auto) 0.8 10^3/uL (0.2-0.9) 11/07/23 05:55 Eos # (Auto) 0.0 10^3/uL (0.0-0.8) 11/07/23 05:55 Baso # (Auto) 0.0 10^3/uL (0.0-0.1) 11/07/23 05:55 Nucleated RBC % (auto) 0 % 11/07/23 05:55 Nucleated RBCs # 0.0 /100WBC 11/07/23 05:55 Sodium 138 mmol/L (136-145) 11/07/23 12:07 Potassium 3.7 mmol/L (3.5-5.1) 11/07/23 12:07 Chloride 100 mmol/L (98-107) 11/07/23 12:07 Carbon Dioxide 22 mmol/L (22-29) 11/07/23 12:07 Anion Gap 19.7 (5-19) H 11/07/23 12:07 BUN 26 mg/dL (6-20) H 11/07/23 12:07 Creatinine 1.0 mg/dL (0.7-1.2) 11/07/23 12:07 GFR Calculation 80.4 mL/min (90-130) L 11/07/23 12:07 Glucose 91 mg/dL (65-115) 11/07/23 12:07 Calculated Osmolality 290 mOsm/kg (285-295) 11/07/23 12:07 Calcium 8.6 mg/dL (8.5-10.5) 11/07/23 12:07 Total Bilirubin 1.1 mg/dL (0.15-1.2) 11/07/23 12:07 AST 115 U/L (0-40) H 11/07/23 12:07 ALT 69 U/L (0-41) H 11/07/23 12:07 Alkaline Phosphatase 76 U/L (40-130) 11/07/23 12:07 Total Protein 6.9 g/dL (6.6-8.7) D 11/07/23 12:07 Albumin 3.9 g/dL (3.5-5.2) 11/07/23 12:07 Globulin 3.0 g/dL (1.3-4.6) 11/07/23 12:07 TSH 2.72 uIU/mL (0.27-4.20) 11/07/23 05:55 Urine Color Yellow (Yellow) 11/07/23 05:50 Urine Appearance Cloudy (CLEAR) A 11/07/23 05:50 Urine pH 5 (5-7) 11/07/23 05:50 Ur Specific [place] 1.020 (1.005-1.030) 11/07/23 05:50 Urine Protein 1+ (Negative) H 11/07/23 05:50 Urine Glucose (UA) Norm (Normal) 11/07/23 05:50 Urine Ketones 1+ (Negative) H 11/07/23 05:50 Urine Blood Trace (Negative) H 11/07/23 05:50 Urine Nitrate Not tested (Negative) A 11/07/23 05:50 Urine Bilirubin 1+ (Negative) H 11/07/23 05:50 Urine Urobilinogen 4 mg/dL (Negative) H 11/07/23 05:50 Ur Leukocyte Esterase Trace (Negative) H 11/07/23 05:50 Urine RBC 5-10 /hpf (0-2) H 11/07/23 05:50 Urine WBC 5-10 /hpf (0-5) H 11/07/23 05:50 Ur Squamous Epith Cells 0-4 /hpf (0-5) H 11/07/23 05:50 Amorphous Sediment Not Reportable 11/07/23 05:50 Urine Bacteria 2+ /hpf (NONE) H 11/07/23 05:50 Hyaline Casts >100 /lpf H 11/07/23 05:50 Coarse Granular Casts 0-4 /lpf H 11/07/23 05:50 Urine Mucus 2+ /hpf 11/07/23 05:50 Salicylates < 0.3 mg/dL (3-10) L 11/07/23 05:55 Urine Opiates Screen Negative ng/mL (Negative) 11/07/23 05:50 Acetaminophen < 5.0 ug/mL (10-30) L 11/07/23 05:55 Ur Barbiturates Screen Negative ng/mL (Negative) 11/07/23 05:50 Ur Phencyclidine Scrn Negative ng/mL (Negative) 11/07/23 05:50 Ur Amphetamines Screen Positive ng/mL (Negative) H 11/07/23 05:50 U Benzodiazepines Scrn Negative ng/mL (Negative) 11/07/23 05:50 Urine Cocaine Screen Negative ng/mL (Negative) 11/07/23 05:50 U Marijuana (THC) Screen Negative ng/mL (Negative) 11/07/23 05:50 Ethyl Alcohol 35 mg/dL (0-10) H 11/07/23 05:55 Influenza Type A Ag negative (Negative) 11/07/23 15:56 Influenza Type B Ag negative (Negative) 11/07/23 15:56 RSV Antigen Negative (Negative) 11/07/23 15:56 SARS-CoV-2 Ag (Rapid) negative (Negative) 11/07/23 15:56 No radiology studies performed this visit Discharge Plan Discharge Admit Provider: Nando Vo Condition: Stable Prescriptions: No Action omeprazole 40 mg capsule,delayed release(DR/EC) 40 mg PO DAILY acetaminophen [Tylenol Extra Strength] 500 mg Tablet 1,000 mg PO Q6H PRN (Reason: PAIN) bupropion HCl 150 mg tablet sustained-release 12 hr 150 mg PO BID ondansetron 8 mg tablet,disintegrating 8 mg PO TID PRN (Reason: Nausea And Vomiting) amlodipine 10 mg tablet 10 mg PO DAILY Coding Level of Care Code ED Wrapping Machine Operator for Nadja Pina
[2023-11-07 06:14] LABS: Basophils % 0.4 %; Hematocrit 46.5 % (37-53); Lymphocytes # 1.8 10^3/uL (0.8-4.8); Lymphocytes % 17.7 %; Mean Corpuscular HGB Conc 32.9 g/dL (30-55); Mean Corpuscular Hemoglobin 30.5 pg (27-33); Mean Corpuscular Volume 92.6 fl (82-101); Mean Platelet Volume 10.2 fL (7.4-10.4); Monocytes # 0.8 10^3/uL (0.2-0.9); Monocytes % 8.2 %; Neutrophils # 7.28 10^3/uL (1.8-7.7); Neutrophils % 73.4 %; Nucleated Red Blood Cells % 0 %; Platelet Count 192 10^3/cmm (157-399); Red Blood Count 5.02 10^6/uL (3.85-5.65); Red Cell Distribution Width 13.4 % (12.1-15.1); White Blood Count 9.92 10^3/uL (3.29-11.43)
[2023-11-07 06:40] LABS: Amphetamines Screen Urine Positive (Negative); Barbiturates Screen Urine Negative (Negative); Benzodiazepines Screen Urine Negative (Negative); Cocaine Screen Urine Negative (Negative); Opiate Screen Urine Negative (Negative); PCP Screen Urine Negative (Negative); THC Screen Urine Negative (Negative)
[2023-11-07 06:40] LABS: Alanine Aminotransferase 89 U/L (0-41); Albumin Level 4.8 g/dL (3.5-5.2); Alcohol Level 35 mg/dL (0-10); Alkaline Phosphatase 95 U/L (40-130); Aspartate Amino Transferase 152 U/L (0-40); Blood Urea Nitrogen 28 mg/dL (6-20); Calcium 9.5 mg/dL (8.5-10.5); Carbon Dioxide 19 mmol/L (22-29); Chloride 94 mmol/L (98-107); Globulin 3.9 g/dL (1.3-4.6); Glomerular Filtration Rate 54.6 mL/min (90-130); Glucose 126 mg/dL (65-115); Osmolality Calculated 293 mOsm/kg (285-295); Sodium 138 mmol/L (136-145); Thyroid Stimulating Hormone 2.72 uIU/mL (0.27-4.20); Total Bilirubin 1.3 mg/dL (0.15-1.2); Total Protein 8.7 g/dL (6.6-8.7)
[2023-11-07 06:45] LABS: Acetaminophen < 5.0 ug/mL (10-30); Salicylate < 0.3 mg/dL (3-10)
--- NOTE | 2023-11-07 06:46 | PC.NURSE ---
[facility] Pt served with copy of [facility] by this RN and security. Pt alert and oriented, continuously talking through reading of Hold Rights.
[2023-11-07 06:47] LABS: Bilirubin Urine 1+ (Negative); Blood Urine Trace (Negative); Glucose Urine UA Norm (Normal); Ketones Urine 1+ (Negative); Leukocyte Esterase Urine Trace (Negative); Protein Urine 1+ (Negative); Urine Appearance Cloudy (CLEAR); Urine Color Yellow (Yellow); Urobilinogen Urine 4 mg/dL (Negative); pH Urine 5 (5-7)
[2023-11-07 06:48] LABS: Add Urine Microscopic? YES; Nitrate Urine Not Tested (Negative)
[2023-11-07 06:49] LABS: Bacteria Urine 2+ /hpf; Squamous Epithelial Cell Urine 0-4 /hpf (0-5)
[2023-11-07 06:50] LABS: Coarse Granular Casts Urine 0-4 /lpf; Hyaline Casts Urine >100 /lpf; Mucus Urine 2+ /hpf
[2023-11-07 06:51] LABS: Add Urine Culture? No
--- NOTE | 2023-11-07 07:48 | PC.NURSE ---
PSA notified this nurse that PD dropped off two black suitcases off that belong to patient.
[2023-11-07] MEDS: potassium chloride oral liq 20 mEq/15 mL UDC 40 MEQ PO (07:55)
[2023-11-07] MEDS: sodium chloride 0.9% 1,000 ML 999 ML IV ×2 (07:55→09:19)
[2023-11-07] MEDS: hyDROXYzine 25 mg Capsule PO (08:47)
--- NOTE | 2023-11-07 11:20 | PC.NURSE ---
EKG completed by previous shift
[2023-11-07 12:50] LABS: Alanine Aminotransferase 69 U/L (0-41); Albumin Level 3.9 g/dL (3.5-5.2); Alkaline Phosphatase 76 U/L (40-130); Anion Gap 19.7 (5-19); Aspartate Amino Transferase 115 U/L (0-40); Blood Urea Nitrogen 26 mg/dL (6-20); Calcium 8.6 mg/dL (8.5-10.5); Carbon Dioxide 22 mmol/L (22-29); Chloride 100 mmol/L (98-107); Glomerular Filtration Rate 80.4 mL/min (90-130); Glucose 91 mg/dL (65-115); Osmolality Calculated 290 mOsm/kg (285-295); Potassium 3.7 mmol/L (3.5-5.1); Sodium 138 mmol/L (136-145); Total Bilirubin 1.1 mg/dL (0.15-1.2); Total Protein 6.9 g/dL (6.6-8.7)
[2023-11-07] MEDS: LORazepam 2 mg/mL INJ 1 mL IVP (13:28)
[2023-11-07 16:28] LABS: Influenza A by IFA negative (Negative); Influenza B by IFA negative (Negative); SARS Covid-2 Antigen negative (Negative)
[2023-11-07 16:47] LABS: RSV Transfer Patient (ED) Negative (Negative)
[2023-11-07] MEDS: LORazepam 2 mg Tablet PO (17:12)
[2023-11-07] MEDS: trazodone 50 mg Tablet PO (20:32)
[2023-11-07] MEDS: haloperidol 5 mg Tablet PO (20:32)
[2023-11-08 06:00] VITALS: RESP 13
--- NOTE | 2023-11-08 06:51 | PC.NURSE ---
While rounding on pts this nurse noticed pt in the dayroom trying to open the patio door with a playing card. When this nurse asked the pt what he was doing he stated im trying to let these people in. This nurse informed pt that he cannot be trying to open outside doors and pt complied with no issues. During shift assessment pt denies si/hi/avh, however while talking to this nurse he is turning his head and laughing. When pt was asked what he is laughing at he stated oh this is my henrietta Otilio, he is always cracking jokes. Throughout the night pt got up multiple times making bizzare statements to staff members. 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 Pt was then redirected to his room and fell asleep for a couple hours. Pt is very easy to redirect.
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
[2023-11-08 14:00] VITALS: BP 128/75; PULSE 79; RESP 17; TEMP 36.4; O2SAT 98
[2023-11-08] MEDS: ARIPiprazole 10 mg Tablet 5 MG PO (15:09)
[2023-11-08] MEDS: trazodone 50 mg Tablet PO (20:04)
[2023-11-08 20:34] VITALS: BP 116/71; PULSE 77; RESP 16; TEMP 36.5; O2SAT 99
[2023-11-09 06:00] VITALS: BP 119/64; PULSE 68; RESP 16; O2SAT 98
[2023-11-09] MEDS: buPROPion XL (24 HR) 150 mg Tablet PO (08:48)
[2023-11-09] MEDS: ARIPiprazole 10 mg Tablet 5 MG PO (08:48)
--- NOTE | 2023-11-09 09:16 | PC.NURSE ---
UP IN DAY ROOM WATCHING TV. DENIES PAIN. DENIES SI/HI AND AVH AT THIS TIME.PT RATES ANXIETY AND DEPRESSION 0/10. PT STATES GOAL FOR THE DAY IS TO GET OUT OF HERE, GET PACKED AND GO TO A DIFFERENT TOWN. ALL QUESTIONS ANSWERED AND SUPPORT VOICED.
[2023-11-09] MEDS: nicotine 2 mg Gum BUCCAL (10:01)
[2023-11-09] MEDS: nicotine 4 mg lozenge MUCOUS MEM ×3 (13:13→19:39)
[2023-11-09 14:00] VITALS: BP 164/66; PULSE 77; RESP 16; TEMP 36.6; O2SAT 99
--- NOTE | 2023-11-09 18:33 | PC.NURSE ---
PT RECEIVED VISTARIL 50 MG EARLY THIS AM FOR REPORTS OF INCREASED ANXIETY. MEDICATION DEEMED EFFECTIVE AT THIS TIME. PT HAS HAD NO OTHER COMPLAINTS OF ANXIETY SINCE. SUPPORT VOICED.
--- NOTE | 2023-11-09 19:33 | P.NPUPN_ITS ---
Subjective NPU 2 Subjective: Patient presented today reporting that he relapsed and that he was glad that he came in but does not feel he needs to be here for a long time. He reports that he is learned his lesson and that he is no longer chasing his ex who supposedly left 2-1/2 months ago. He reported that he got tripped up by being in a situation where there were problematic substances which led to his relapse. He seemed very ambivalent about aftercare and was focused on getting back to work [place] the road. He denies any side effects to the medication. He endorsed being hopeful he could leave soon. Mental Status Exam 2 MSE Comments: This is an obese, white male, in hospital scrubs, with limited grooming and adequate eye contact. Notably missing fingers on his left hand. No abnormal movements. Cooperative with exam in mild distress. Speech was mostly normal rate and volume. Mood described as getting better; affect mostly euthymic with some expressed frustration about possibly having to be here too much longer. Thought process, organized. Thought content: patient denied any suicidal or homicidal ideation, there were no delusions reported or noted, patient denied any auditory or visual hallucinations. Attention, concentration, and memory appeared intact, but none were formally tested. Alert and oriented times three. Insight and judgment appear limited. Impulse control is limited. Vitals/I&O/Wt Last Vital Signs Temp 97.9 F 11/09/23 14:00 Pulse 77 11/09/23 14:00 Resp 16 11/09/23 14:00 BP 164/66 11/09/23 14:00 Pulse Ox 99 11/09/23 14:00 O2 Del Method Room Air 11/08/23 20:34 Weight last 48 hrs Weight 99.79 kg Data NPU 11/07/23 05:55 11/07/23 12:07 A&P Assessment and plan (1) Substance-induced psychotic disorder: (2) Depression, unspecified: (3) Methamphetamine use disorder, severe: (4) Acid reflux: (5) Esophagitis: (6) Gastritis: (7) History of colon polyps: (8) Diverticular disease of large intestine: (9) Bloating: Plan This is a 47-year-old white male With a history of depression along with methamphetamine abuse and suicide attempts admitted involuntarily for increased paranoia likely associated with methamphetamine abuse. 1.? Will restarted wellbutrin for depression as well as low dose abilify to target paranoia. 2.? Encourage individual, group, and milieu therapy. 3.? Continue q-15-minute checks for safety. 4.? Recommend sober living treatment at the highest level of care to which the patient is willing to commit. 5. Will evaluate for safety for discharge with the 96-hour hold. Involuntary Hold Information 2 96 Hour Hold: 96 Hour Involuntary Admission: Yes 96 Hour Hold Ending Date: 11/13/23 96 Hour Hold Ending Time: 06:15 Attestations NPU 2 Medical Necessity Statement*: Inpatient hospitalization is medically necessary and the clinically appropriate intervention ?at this time.? We will monitor/initiate medications and make changes as indicated.? The patient?s likely length of stay 2-5 days. Coding Level of Care Code Acute Code for Chg Fwd Diagnoses Substance-induced psychotic disorder F19.959 Depression, unspecified F32.A Methamphetamine use disorder, severe F15.20 Acid reflux K21.9 Esophagitis K20.90 Gastritis K29.70 History of colon polyps Z86.010 Diverticular disease of large intestine K57.30 Bloating R14.0
[2023-11-09 20:07] VITALS: BP 134/81; PULSE 73; RESP 14; TEMP 36.5; O2SAT 99
[2023-11-09] MEDS: hyDROXYzine 25 mg Capsule 50 MG PO (20:29)
[2023-11-09] MEDS: trazodone 50 mg Tablet PO (20:30)
[2023-11-09 22:00] VITALS: BP 134/81; PULSE 73; RESP 14; TEMP 36.5; O2SAT 99
[2023-11-10 05:01] VITALS: BP 125/63; PULSE 71; RESP 16; TEMP 36.7; O2SAT 97
[2023-11-10] MEDS: buPROPion XL (24 HR) 150 mg Tablet PO (08:10)
[2023-11-10] MEDS: ARIPiprazole 10 mg Tablet 5 MG PO (08:11)
[2023-11-10] MEDS: nicotine 4 mg lozenge MUCOUS MEM (08:11)
--- NOTE | 2023-11-10 08:53 | PC.NURSE ---
UP IN DAY ROOM WATCHING TV. DENIES PAIN. DENIES SI/HI AND AVH AT THIS TIME. PT STATES HE SHOULD BE DISCHARGING TODAY, THATS WHAT THE SAID LAST NIGHT. RN EDUCATED PT THAT I WOULD LET HIM KNOW WHAT THE POT SANDER AND DR. SALAZAR SAYS AFTER THE MEETING THIS AM AND GIVE HIM AN UPDATE. RATES ANXIETY AND DEPRESSION 0/10. PT GOAL FOR THE DAY IS TO GET OUT OF HERE I GUESS SO I CAN GET TO WORK THIS WEEK AT [employer]. PT STATES HE HAS A NEW JOB AND IS EXCITED TO GET STARTED. ALL QUESTIONS ANSWERED AND SUPPORT VOICED.
[2023-11-10 14:00] VITALS: BP 127/73; PULSE 80; RESP 18; TEMP 36.8; O2SAT 99
--- NOTE | 2023-11-10 14:43 | P.NPUPN_ITS ---
Subjective NPU 2 Subjective: Patient presented today reporting that he is doing better and feels ready to face the challenges of his life. He discussed the obvious needs to avoid triggering issues surrounding his ex and focus on his children. He continues to discuss focusing on employment and getting some amenable arrangements for visitation with the children. He denied any side effects to the medication and we discussed the likelihood of discharge tomorrow. Mental Status Exam 2 MSE Comments: This is an obese, white male, in hospital scrubs, with limited grooming and adequate eye contact. Notably missing fingers on his left hand. No abnormal movements. Cooperative with exam in mild distress. Speech was mostly normal rate and volume. Mood described as getting better; affect mostly euthymic with some expressed frustration about possibly having to be here too much longer. Thought process, organized. Thought content: patient denied any suicidal or homicidal ideation, there were no delusions reported or noted, patient denied any auditory or visual hallucinations. Attention, concentration, and memory appeared intact, but none were formally tested. Alert and oriented times three. Insight and judgment appear limited. Impulse control is limited. Vitals/I&O/Wt Last Vital Signs Temp 98.0 F 11/10/23 05:01 Pulse 71 11/10/23 05:01 Resp 16 11/10/23 05:01 BP 155/63 11/10/23 05:01 Pulse Ox 97 11/10/23 05:01 O2 Del Method Room Air 11/10/23 05:01 Weight last 48 hrs Weight 99.79 kg Data NPU 11/07/23 05:55 11/07/23 12:07 A&P Assessment and plan (1) Substance-induced psychotic disorder: (2) Depression, unspecified: (3) Methamphetamine use disorder, severe: (4) Acid reflux: (5) Esophagitis: (6) Gastritis: (7) History of colon polyps: (8) Diverticular disease of large intestine: (9) Bloating: Plan This is a 47-year-old white male With a history of depression along with methamphetamine abuse and suicide attempts admitted involuntarily for increased paranoia likely associated with methamphetamine abuse. 1.? Will restarted wellbutrin for depression as well as low dose abilify to target paranoia. 2.? Encourage individual, group, and milieu therapy. 3.? Continue q-15-minute checks for safety. 4.? Recommend sober living treatment at the highest level of care to which the patient is willing to commit. 5. Will evaluate for safety for discharge with the 96-hour hold. 6. Tentative plan for discharge tomorrow. Involuntary Hold Information 2 96 Hour Hold: 96 Hour Involuntary Admission: Yes 96 Hour Hold Ending Date: 11/13/23 96 Hour Hold Ending Time: 06:15 Attestations NPU 2 Medical Necessity Statement*: Inpatient hospitalization is medically necessary and the clinically appropriate intervention ?at this time.? We will monitor/initiate medications and make changes as indicated.? The patient?s likely length of stay 1-3 days. Coding Level of Care Code Acute Code for g Fwd Diagnoses Substance-induced psychotic disorder F19.959 Depression, unspecified F32.A Methamphetamine use disorder, severe F15.20 Acid reflux K21.9 Esophagitis K20.90 Gastritis K29.70 History of colon polyps Z86.010 Diverticular disease of large intestine K57.30 Bloating R14.0
[2023-11-10] MEDS: trazodone 50 mg Tablet PO (20:25)
[2023-11-10] MEDS: hyDROXYzine 25 mg Capsule 50 MG PO (20:25)
[2023-11-10 22:00] VITALS: BP 160/80; PULSE 97; RESP 18; TEMP 36.4; O2SAT 98
[2023-11-11 06:00] VITALS: BP 135/82; PULSE 78; RESP 18; TEMP 36.9; O2SAT 99
[2023-11-11] MEDS: buPROPion XL (24 HR) 150 mg Tablet PO (08:04)
[2023-11-11] MEDS: ARIPiprazole 10 mg Tablet 5 MG PO (08:04)
--- NOTE | 2023-11-11 09:46 | P.NPUDS_ITS ---
Diagnoses at Discharge Discharge Diagnosis (1) Substance-induced psychotic disorder: Status: Acute (2) Depression, unspecified: Status: Acute (3) Methamphetamine use disorder, severe: Status: Acute (4) Acid reflux: Status: Acute (5) Esophagitis: Status: Acute (6) Gastritis: Status: Acute (7) History of colon polyps: Status: Acute (8) Diverticular disease of large intestine: Status: Acute (9) Bloating: Status: Acute Reason for Visit Reason for Visit: MHE Involuntary Hold Information 96 Hour Hold: 96 Hour Involuntary Admission: Yes 96 Hour Hold Ending Date: 11/13/23 96 Hour Hold Ending Time: 06:15 Mental Status Exam MSE Comments: This is an obese, white male, in hospital scrubs, with limited grooming and adequate eye contact. Notably missing fingers on his left hand. No abnormal movements. Cooperative with exam in mild distress. Speech was mostly normal rate and volume. Mood described as getting better; affect mostly euthymic with some expressed frustration about possibly having to be here too much longer. Thought process, organized. Thought content: patient denied any suicidal or homicidal ideation, there were no delusions reported or noted, patient denied any auditory or visual hallucinations. Attention, concentration, and memory appeared intact, but none were formally tested. Alert and oriented times three. Insight and judgment appear limited. Impulse control is limited. Discharge Data Studies Completed and Pending: Laboratory Results WBC 9.92 10^3/uL (3.2 9-11.43) 11/07/23 05:55 RBC 5.02 10^6/uL (3.8 5-5.65) 11/07/23 05:55 Hgb 15.30 g/dL (11.27 -16.99) 11/07/23 05:55 Hct 46.5 % (37-53) 11/07/23 05:55 MCV 92.6 fl (82-101) 11/07/23 05:55 MCH 30.5 pg (27-33) 11/07/23 05:55 MCHC 32.9 g/dL (30-55) 11/07/23 05:55 RDW 13.4 % (12.1-15.1 ) 11/07/23 05:55 Plt Count 192 10^3/cmm (157 -399) 11/07/23 05:55 MPV 10.2 fL (7.4-10.4 ) 11/07/23 05:55 Neut % (Auto) 73.4 % 11/07/23 05:55 Lymph % (Auto) 17.7 % 11/07/23 05:55 [place] % (Auto) 8.2 % 11/07/23 05:55 Eos % (Auto) 0.0 % 11/07/23 05:55 Baso % (Auto) 0.4 % 11/07/23 05:55 Neut # (Auto) 7.28 10^3/uL (1.8 -7.7) 11/07/23 05:55 Lymph # (Auto) 1.8 10^3/uL (0.8- 4.8) 11/07/23 05:55 [place] # (Auto) 0.8 10^3/uL (0.2- 0.9) 11/07/23 05:55 Eos # (Auto) 0.0 10^3/uL (0.0- 0.8) 11/07/23 05:55 Baso # (Auto) 0.0 10^3/uL (0.0- 0.1) 11/07/23 05:55 Nucleated RBC % (a uto) 0 % 11/07/23 05:55 Nucleated RBCs # 0.0 /100WBC 11/07/23 05:55 Sodium 138 mmol/L (136-1 45) 11/07/23 12:07 Potassium 3.7 mmol/L (3.5-5 .1) 11/07/23 12:07 Chloride 100 mmol/L (98-10 7) 11/07/23 12:07 Carbon Dioxide 22 mmol/L (22-29) 11/07/23 12:07 Anion Gap 19.7 (5-19) H 11/07/23 12:07 BUN 26 mg/dL (6-20) H 11/07/23 12:07 Creatinine 1.0 mg/dL (0.7-1. 2) 11/07/23 12:07 GFR Calculation 80.4 mL/min (90-1 30) L 11/07/23 12:07 Glucose 91 mg/dL (65-115) 11/07/23 12:07 Calculated Osmolal ity 290 mOsm/kg (285- 295) 11/07/23 12:07 Calcium 8.6 mg/dL (8.5-10 .5) 11/07/23 12:07 Total Bilirubin 1.1 mg/dL (0.15-1 .2) 11/07/23 12:07 AST 115 U/L (0-40) H 11/07/23 12:07 ALT 69 U/L (0-41) H 11/07/23 12:07 Alkaline Phosphata se 76 U/L (40-130) 11/07/23 12:07 Total Protein 6.9 g/dL (6.6-8.7 ) D 11/07/23 12:07 Albumin 3.9 g/dL (3.5-5.2 ) 11/07/23 12:07 Globulin 3.0 g/dL (1.3-4.6 ) 11/07/23 12:07 TSH 2.72 uIU/mL (0.27 -4.20) 11/07/23 05:55 Urine Color Yellow (Yellow) 11/07/23 05:50 Urine Appearance Cloudy (CLEAR) A 11/07/23 05:50 Urine pH 5 (5-7) 11/07/23 05:50 Ur Specific Gravit y 1.020 (1.005-1.0 30) 11/07/23 05:50 Urine Protein 1+ (Negative) H 11/07/23 05:50 Urine Glucose (UA) Norm (Normal) 11/07/23 05:50 Urine Ketones 1+ (Negative) H 11/07/23 05:50 Urine Blood Trace (Negative) H 11/07/23 05:50 Urine Nitrate Not tested (Nega tive) A 11/07/23 05:50 Urine Bilirubin 1+ (Negative) H 11/07/23 05:50 Urine Urobilinogen 4 mg/dL (Negative ) H 11/07/23 05:50 Ur Leukocyte Mago ase Trace (Negative) H 11/07/23 05:50 Urine RBC 5-10 /hpf (0-2) H 11/07/23 05:50 Urine WBC 5-10 /hpf (0-5) H 11/07/23 05:50 Ur Squamous Epith Cells 0-4 /hpf (0-5) H 11/07/23 05:50 Amorphous Sediment Not Reportable 11/07/23 05:50 Urine Bacteria 2+ /hpf (NONE) H 11/07/23 05:50 Hyaline Casts >100 /lpf H 11/07/23 05:50 Coarse Granular Ca sts 0-4 /lpf H 11/07/23 05:50 Urine Mucus 2+ /hpf 11/07/23 05:50 Salicylates < 0.3 mg/dL (3-10 ) L 11/07/23 05:55 Urine Opiates Scre en Negative ng/mL (N egative) 11/07/23 05:50 Acetaminophen < 5.0 ug/mL (10-3 0) L 11/07/23 05:55 Ur Barbiturates Sc reen Negative ng/mL (N egative) 11/07/23 05:50 Ur Phencyclidine S crn Negative ng/mL (N egative) 11/07/23 05:50 Ur Amphetamines Sc reen Positive ng/mL (N egative) H 11/07/23 05:50 U Benzodiazepines Scrn Negative ng/mL (N egative) 11/07/23 05:50 Urine Cocaine Scre en Negative ng/mL (N egative) 11/07/23 05:50 U Marijuana (THC) Screen Negative ng/mL (N egative) 11/07/23 05:50 Ethyl Alcohol 35 mg/dL (0-10) H 11/07/23 05:55 Influenza Type A A g negative (Negati ve) 11/07/23 15:56 Influenza Type B A g negative (Negati ve) 11/07/23 15:56 RSV Antigen Negative (Negati ve) 11/07/23 15:56 SARS-CoV-2 Ag (Rap id) negative (Negati ve) 11/07/23 15:56 Vitals: Last Vital Signs Temp 98.4 F 11/11/23 06:00 Pulse 78 11/11/23 06:00 Resp 18 11/11/23 06:00 BP 135/82 11/11/23 06:00 Pulse Ox 99 11/11/23 06:00 O2 Del Method Room Air 11/10/23 22:00 Discharge Plan Discharge Patient Disposition: Home Condition: Stable Prescriptions: New trazodone 50 mg Tablet 50 mg PO BEDTIME PRN (Reason: Insomnia) 30 Days Qty: 30 1RF hydroxyzine pamoate 25 mg Capsule 50 mg PO Q6H PRN (Reason: Anxiety) 30 Days Qty: 120 1RF aripiprazole 10 mg Tablet 5 mg PO DAILY 30 Days Qty: 15 1RF bupropion HCl 150 mg Tablet Extended Release 24 Hr 150 mg PO DAILY 30 Days Qty: 30 1RF Continued omeprazole 40 mg capsule,delayed release(DR/EC) 40 mg PO DAILY acetaminophen [Tylenol Extra Strength] 500 mg Tablet 1,000 mg PO Q6H PRN (Reason: PAIN) ondansetron 8 mg tablet,disintegrating 8 mg PO TID PRN (Reason: Nausea And Vomiting) amlodipine 10 mg tablet 10 mg PO DAILY Discontinued bupropion HCl 150 mg tablet sustained-release 12 hr 150 mg PO BID Discharge Orders: Discharge Order (Routine); Ordered 11/11/23 Ordered By: Wilberto Ann Referrals: [facility] [Outside] - 11/15/23 7:30 am (Appointment is with Samira Johnson to assess for [facility] services) Discharge Diet: Regular Discharge Activity: Resume usual activity Patient Instructions: Opioid Safety Discharge Attestations NPU Time Spent in Discharge Care*: less than 30 min Specific Discharge Activities: Specific discharge activities: educating patient, discussing with manager case management/social workers/dc planners, documenting/other paperwork and evaluating patient/reviewing data Coding Level of Care Code Acute Code for g Fwd Diagnoses Substance-induced psychotic disorder F19.959 Depression, unspecified F32.A Methamphetamine use disorder, severe F15.20 Acid reflux K21.9 Esophagitis K20.90 Gastritis K29.70 History of colon polyps Z86.010 Diverticular disease of large intestine K57.30 Bloating R14.0
[2023-11-11 10:27] VITALS: BP 135/82; PULSE 78; RESP 18; TEMP 36.9; O2SAT 99
== END 2023-11-11 12:21 | disposition home or self-care (01) | DRG 897 ==
LOC: ER 06:17 → NP 17:35
PROVIDERS: Admitting Provider Psychiatry & Neurology Psychiatry; Emergency Provider Family Medicine; Visit Provider Psychiatry & Neurology Psychiatry
DX: F15.250 Other stimulant dependence with stimulant-induced psychotic disorder with delusions (principal); R45.851 Suicidal ideations; F10.10 Alcohol abuse, uncomplicated; Y90.1 Blood alcohol level of 20-39 mg/100 ml; F41.1 Generalized anxiety disorder; F32.A Depression, unspecified; F17.210 Nicotine dependence, cigarettes, uncomplicated; F43.20 Adjustment disorder, unspecified; K21.00 Gastro-esophageal reflux disease with esophagitis, without bleeding; Z81.8 Family history of other mental and behavioral disorders; Z91.51 Personal history of suicidal behavior; K57.30 Diverticulosis of large intestine without perforation or abscess without bleeding; R14.0 Abdominal distension (gaseous); K29.70 Gastritis, unspecified, without bleeding
CPT/HCPCS: 36415; 80053; 80306; 80307; 81001; 84443; 85025; 87426; 87804; 87899; 93005; 96361; 96374; 97150; 97165; 99285; J2060; J7030

== ENCOUNTER 2024-04-18 18:40 | Emergency (ER) | payer SELFPAY ==
[2024-04-18 19:07] VITALS: BP 153/87; PULSE 88; TEMP 36.5; O2SAT 98; BMI 33.7
--- NOTE | 2024-04-18 19:28 | W.ED.BACK ---
HPI - Back Pain/Injury General: Chief Complaint: Back Pain/Injury Stated Complaint: severe lower back pain radiates down to leg Time Seen by Provider: 04/18/24 19:15 Source: patient Mode of arrival: ambulatory Limitations: no limitations History of Present Illness: Patient is a 48-year-old male who presents the emergency department planing of right lower back pain radiating down his right leg over the past week or so. He reports that he is normally very active and walks upwards of 20 miles a day, has been unable to do so since his pain started. Denies history of sciatica. Denies any trauma or inciting event where he felt a pop or sudden pain. States he has been alternating ibuprofen and Tylenol for pain this has not been helping. Also states he is on his feet a lot at work. Denies ever having this pain before in the past. Does not report any fevers, trauma, unexplained weight loss, neurological symptoms, IVDU, steroid use, or history of cancer. MD elicited complaint: back pain Onset (ago): week(s) Timing: constant Severity: severe Quality: sharp Location: right lower back Radiation: right leg below the knee Exacerbating factors: movement Relieving factors: none Associated symptoms: Deny abdominal pain, difficulty walking, fecal incontinence, fever(s) or syncope Related Data Home Medications Medication Instructions Recorded Confirmed acetaminophen 500 mg tablet 1,000 mg PO Q6H PRN PAIN 09/08/20 11/07/23 (Tylenol Extra Strength) omeprazole 40 mg capsule,delayed 40 mg PO DAILY 05/10/23 11/07/23 release amlodipine 10 mg tablet 10 mg PO DAILY 11/07/23 11/07/23 ondansetron 8 mg disintegrating 8 mg PO TID PRN Nausea And Vomiting 11/07/23 11/07/23 tablet Previous Rx's Medication Instructions Recorded aripiprazole 10 mg tablet 5 mg (1/2 x 10 mg) PO DAILY 30 11/11/23 days #15 tabs bupropion HCl 150 mg 24 hr tablet, 150 mg PO DAILY 30 days #30 tabs 11/11/23 extended release hydroxyzine pamoate 25 mg capsule 50 mg (2 x 25 mg) PO Q6H PRN 11/11/23 Anxiety 30 days #120 caps trazodone 50 mg tablet 50 mg PO BEDTIME PRN Insomnia 30 11/11/23 days #30 tabs cyclobenzaprine 10 mg tablet 10 mg PO TID #15 tabs 04/18/24 ketorolac 10 mg tablet 10 mg PO Q8H PRN pain #15 tabs 04/18/24 prednisone 20 mg tablet 60 mg (3 x 20 mg) PO ONCE 5 days 04/18/24 #15 tabs Allergies Allergy/AdvReac Type Severity Reaction Status Date / Time lisinopril Allergy Severe swells up Verified 04/18/24 19:11 from it Penicillins Allergy Severe hives and Verified 04/18/24 19:11 feels like he is choking. Review of Systems General: Reports: 10 or more systems reviewed and unremarkable except in HPI and below Const: Reports: other (denies trauma); Denies: fever(s), change in weight or night sweats Card: Denies: chest pain, lightheadedness or syncope Resp: Denies: dyspnea GI: Denies: abdominal pain or fecal incontinence : Denies: urinary incontinence Musc: Reports: back pain and extremity pain; Denies: neck pain Skin/Breast: Denies: rash or skin pain Neuro: Denies: headache(s), numbness in extremities, weakness in extremities, sensory changes, lack of coordination, difficulty walking, frequent falls or involuntary movements PFSH ED PFSH: Medical History Psychiatric care Amphetamine abuse Generalized anxiety disorder Nicotine dependence, cigarettes, uncomplicated Adderall use disorder, moderate, in sustained remission, in controlled environment, dependence Major depressive disorder, recurrent, moderate Family History Father Dementia Stroke Myocardial infarction Mother Myocardial infarction Social History Smoking and tobacco/nicotine status: current every day tobacco/nicotine user Alcohol intake: current Alcohol intake frequency: holidays/special occasions only Alcohol type: hard liquor (rum a couple shots) Substance/Drug Use: former Date of last use: 15 days ago Physical Exam Const: COMMON NORMALS: no acute distress, patient oriented x3, no limitations, healthy appearing and alert Resp: COMMON NORMALS: normal respiratory effort, No retractions, No use of accessory muscles and clear to auscultation bilaterally AUSCULTATION: clear to auscultation bilaterally Cardio: COMMON NORMALS: regular rate, regular rhythm, S1 normal heart sound present and S2 normal heart sound present RATE: regular rate RHYTHM: regular rhythm HEART SOUNDS: S1 normal heart sound present and S2 normal heart sound present Back/Pelvis: OTHER: Reproducible tenderness to palpation to the right low back with no signs of trauma. Straight leg raise positive on the right. Normal visual examination. No spinous process tenderness. Full active range of motion, secondary to pain with lateral rotation at the low back. Extremity: COMMON NORMALS: normal to inspection and full ROM Neuro: COMMON NORMALS: patient oriented x3, moves all extremities, no focal motor deficits, no sensory deficits noted, deep tendon reflexes 2+ bilaterally and gait normal SENSORIUM/ORIENTATION: Yes alert OTHER: L3, L4, L5, and S1 nerve sensations intact. Normal knee jerk and ankle jerk reflexes. Skin: COMMON NORMALS: no rashes or lesions noted GENERAL SKIN EXAM: no rashes or lesions noted Course Vital Signs: Vital signs: Vital Signs Temperature 97.7 F 04/18/24 19:07 Pulse Rate 88 04/18/24 19:07 Blood Pressure 153/87 04/18/24 19:07 Pulse Oximetry 98 04/18/24 19:07 Oxygen Delivery Me thod Room Air 04/18/24 19:07 MDM - Back Pain/Injury Medical Decision Making Patient presented with bilateral back pain radiating down the right leg. He had no concerning red flag back symptoms or physical exam findings. No trauma or reasons for imaging at this time. He notes improvement of his pain after IM Toradol, Norflex, and Decadron. Will treat with prescriptions of this and have him return if he does develop any concerning symptoms. Patient comfortable with discharge home at this time. No radiology studies performed this visit Discharge Plan Discharge Patient Disposition: Home Clinical Impression: Lumbar radiculopathy Condition: Stable Prescriptions: New cyclobenzaprine 10 mg tablet 10 mg PO TID Qty: 15 0RF prednisone 20 mg tablet 60 mg PO ONCE 5 Days Qty: 15 0RF ketorolac 10 mg tablet 10 mg PO Q8H PRN (Reason: pain) Qty: 15 0RF No Action omeprazole 40 mg capsule,delayed release(DR/EC) 40 mg PO DAILY acetaminophen [Tylenol Extra Strength] 500 mg Tablet 1,000 mg PO Q6H PRN (Reason: PAIN) ondansetron 8 mg tablet,disintegrating 8 mg PO TID PRN (Reason: Nausea And Vomiting) amlodipine 10 mg tablet 10 mg PO DAILY trazodone 50 mg Tablet 50 mg PO BEDTIME PRN (Reason: Insomnia) 30 Days Qty: 30 1RF hydroxyzine pamoate 25 mg Capsule 50 mg PO Q6H PRN (Reason: Anxiety) 30 Days Qty: 120 1RF aripiprazole 10 mg Tablet 5 mg PO DAILY 30 Days Qty: 15 1RF bupropion HCl 150 mg Tablet Extended Release 24 Hr 150 mg PO DAILY 30 Days Qty: 30 1RF Discharge Orders: Discharge ED (Routine); Ordered 04/18/24 Ordered By: Gio Peterson Patient Instructions: Lumbar Radiculopathy (ED) Activity Restrictions/Additional Instructions: See attached patient instructions for further education. Take medications as prescribed. If your condition worsens or you have any new concerning symptoms please return to the emergency department. Coding Level of Care Code ED Purchasing Director for Nadja Pina
[2024-04-18] MEDS: orphenadrine 30 mg/mL Inj 2 mL 60 MG IM (19:33)
[2024-04-18] MEDS: ketorolac 60 mg/2 mL INJ IM (19:34)
[2024-04-18] MEDS: dexamethasone 10 mg/mL INJ IM (19:37)
[2024-04-18 20:00] VITALS: BP 144/69; PULSE 82; O2SAT 97
== END 2024-04-18 20:01 | disposition home or self-care (01) ==
PROVIDERS: Emergency Provider Physician Assistant
DX: M54.16 Radiculopathy, lumbar region (principal); Z72.0 Tobacco use
CPT/HCPCS: 96372; 99284; J1100; J1885; J2360

== ENCOUNTER 2024-08-16 08:10 | Inpatient (IN) | payer SELFPAY ==
[2024-08-16] VITALS (35 sets, daily range): BP systolic 90–151; BP diastolic 53–74; PULSE 79–98; RESP 13–28; TEMP 36.6–38.5; O2SAT 91–97; BMI 29.7
--- NOTE | 2024-08-16 08:07 | XR_ITS ---
WS: [id number] Portable AP semiupright chest, 08/16/2024 Clinical Data: dyspnea/cough Comparison: 2 view chest, 09/27/2020 Findings: No nodules, masses or effusions are seen. The heart is normal. The pulmonary vascularity is not increased. No pneumonia or pneumothorax is seen. The diaphragms are flattened. The aortic arch shows mild tortuosity. There are monitor leads on the chest wall. XR/XR chest 1V portable [id number] Impression: Hyperinflation and atherosclerosis.
[2024-08-16 08:38] LABS: Basophils % 0.2 %; Hematocrit 41.9 % (37-53); Lymphocytes # 0.4 10^3/uL (0.8-4.8); Mean Corpuscular HGB Conc 32.5 g/dL (30-55); Mean Corpuscular Hemoglobin 29.8 pg (27-33); Mean Corpuscular Volume 91.9 fl (82-101); Mean Platelet Volume 9.3 fL (7.4-10.4); Monocytes # 0.3 10^3/uL (0.2-0.9); Neutrophils # 9.71 10^3/uL (1.8-7.7); Neutrophils % 92.4 %; Nucleated Red Blood Cells % 0 %; Platelet Count 233 10^3/cmm (157-399); Red Blood Count 4.56 10^6/uL (3.85-5.65); Red Cell Distribution Width 12.9 % (12.1-15.1); White Blood Count 10.51 10^3/uL (3.29-11.43)
--- NOTE | 2024-08-16 08:40 | W.ED.AMS ---
HPI - Altered Mental Status General: Chief Complaint: Altered Mental Status Stated Complaint: possible drug use History of Present Illness: 48-year-old male who presents emergency room via EMS. Patient [place]. He is arousable to verbal stimuli but does not provide any history. He has some asteriskis. Later in the visit I was able to get him to respond that he was in [place] was barely intelligible he could not give me any other history. He has no apparent external trauma Related Data Home Medications ?Medication ?Instructions ?Recorded ?Confirmed No Known Home Medications 08/16/24 08/16/24 Allergies Allergy/AdvReac Type Severity Reaction Status Date / Time lisinopril Allergy Severe swells up Verified 04/18/24 19:11 from it Penicillins Allergy Severe hives and Verified 04/18/24 19:11 feels like he is choking. Review of Systems General: Reports: ROS unobtainable due to medical condition and ROS unobtainable due to mental status [facility] ED PFSH: Medical History Psychiatric care Amphetamine abuse Generalized anxiety disorder Nicotine dependence, cigarettes, uncomplicated Adderall use disorder, moderate, in sustained remission, in controlled environment, dependence Major depressive disorder, recurrent, moderate Surgical History History of ankle surgery H/O gastric sleeve History of hand surgery History of facial surgery Family History Father Dementia Stroke Myocardial infarction Mother Myocardial infarction Social History Smoking and tobacco/nicotine status: current every day tobacco/nicotine user Alcohol intake: current Alcohol intake frequency: holidays/special occasions only Alcohol type: hard liquor (rum a couple shots) Substance/Drug Use: former Date of last use: 15 days ago Physical Exam HENMT: COMMON NORMALS: normocephalic, atraumatic and hearing grossly normal bilaterally HEAD & SCALP: normocephalic and atraumatic Neck/C-Spine: OTHER: Random voluntary movement of the neck. No pain with palpation along the C-spine patient able to flex at the neck without signs of pain Resp: COMMON NORMALS: normal respiratory effort, No retractions, No use of accessory muscles and clear to auscultation bilaterally AUSCULTATION: clear to auscultation bilaterally Cardio: COMMON NORMALS: regular rate, regular rhythm and No murmurs present (Cardio) RATE: regular rate RHYTHM: regular rhythm GI: COMMON NORMALS: Soft to palpation and No hepatosplenomegaly present AUSCULTATION: Yes normoactive bowel sounds PALPATION: Yes Soft to palpation, No Tenderness to palpation present (GI), No Guarding due to palpation present (GI) and Yes No hepatosplenomegaly present Extremity: COMMON NORMALS: normal to inspection, capillary refill normal, no clubbing, cyanosis or edema, no calf tenderness and no pedal edema Skin: COMMON NORMALS: no rashes or lesions noted GENERAL SKIN EXAM: no rashes or lesions noted Course Vital Signs: Vital signs: Vital Signs Temperature 99.6 F 08/17/24 04:00 Pulse Rate 71 08/17/24 04:30 Respiratory Rate 17 08/17/24 04:30 Blood Pressure 116/69 08/17/24 04:30 Pulse Oximetry 97 08/17/24 04:30 Oxygen Delivery Me thod Room Air 08/17/24 04:00 Oxygen Flow Rate 2 08/16/24 10:00 MDM - Altered Mental Status Medical Decision Making Blood glucose normal Narcan did not change patient's mental status. He did test positive for amphetamines. His white count is normal. Chest x-ray unremarkable CT head CTA chest abdomen pelvis all negative. Discussed with hospitalist will admit suspect overdose. He will have to be in the ICU. CPK is elevated however his lactic acid and ammonia level are not he does not have an anion gap. Initial troponin of 10. Lab Data 08/17/24 03:51 08/17/24 03:51 Radiology Impressions Chest X-Ray 08/16/24 08:07 Impression: Hyperinflation and atherosclerosis. Head CT 08/16/24 08:47 IMPRESSION: 1. No acute intracranial hemorrhage or edema. 2. Stable CT head since 01/04/2021. Chest/Abdomen/Pelvis CT 08/16/24 10:24 IMPRESSION: 1. Study is compromised by motion artifact. 2. No central pulmonary embolism. Beyond the lobar branches opacification because limited by motion. 3. No RIGHT heart strain. 4. No pneumonia or pulmonary laceration. 5. No acute findings within the abdomen or pelvis. 6. No mesenteric injury or ascites. 7. No GI tract obstruction. 8. Possible stones or sludge within the gallbladder. No evidence for acute cholecystitis. Laboratory Results WBC 10.51 10^3/uL (3.29-11.43) 08/16/24 08:33 RBC 4.56 10^6/uL (3.85-5.65) 08/16/24 08:33 Hgb 13.60 g/dL (11.27-16.99) 08/16/24 08:33 Hct 41.9 % (37-53) 08/16/24 08:33 MCV 91.9 fl (82-101) 08/16/24 08:33 MCH 29.8 pg (27-33) 08/16/24 08:33 MCHC 32.5 g/dL (30-55) 08/16/24 08:33 RDW 12.9 % (12.1-15.1) 08/16/24 08:33 Plt Count 233 10^3/cmm (157-399) 08/16/24 08:33 MPV 9.3 fL (7.4-10.4) 08/16/24 08:33 Neut % (Auto) 92.4 % 08/16/24 08:33 Lymph % (Auto) 4.0 % 08/16/24 08:33 [place] % (Auto) 3.0 % 08/16/24 08:33 Eos % (Auto) 0.0 % 08/16/24 08: Baso % (Auto) 0.2 % 08/16/24 08:33 Neut # (Auto) 9.71 10^3/uL (1.8-7.7) H 08/16/24 08:33 Lymph # (Auto) 0.4 10^3/uL (0.8-4.8) L 08/16/24 08:33 [place] # (Auto) 0.3 10^3/uL (0.2-0.9) 08/16/24 08:33 Eos # (Auto) 0.0 10^3/uL (0.0-0.8) 08/16/24 08:33 Baso # (Auto) 0.0 10^3/uL (0.0-0.1) 08/16/24 08:33 Nucleated RBC % (auto) 0 % 08/16/24 08:33 Nucleated RBCs # 0.0 /100WBC 08/16/24 08:33 Specimen Type Arterial 08/16/24 08:57 Sample Site Brachial, left 08/16/24 08:57 ABG pH 7.37 (7.35-7.45) 08/16/24 08:57 ABG pCO2 40.4 mmHg (35-45) 08/16/24 08:57 ABG pO2 74.4 mmHg (80.0-100.0) L 08/16/24 08:57 ABG PO2/FiO2 Ratio 354 08/16/24 08:57 ABG HCO3 23.2 mmol/L (22-26) 08/16/24 08:57 ABG O2 Saturation 95.0 08/16/24 08:57 ABG Base Excess -2.0 mmol/L (-2.0-2.0) 08/16/24 08:57 Bob Test Pos 08/16/24 08:57 A-a O2 Gradient 3.1 mmHg (5-10) L 08/16/24 08:57 Hematocrit 40.9 % (42-52) L 08/16/24 08:57 Hgb O2 Saturation 93.0 % (95-100) L 08/16/24 08:57 Carboxyhemoglobin 0.8 %THgb (0.4-20.1) 08/16/24 08:57 Methemoglobin 1.3 % (0.4-1.5) 08/16/24 08:57 Total Hemoglobin 13.4 g/dL (14-18) L 08/16/24 08:57 Sodium 141.0 mmol/L (131-143) 08/16/24 08:57 Potassium 4.5 mmol/L (3.5-5.0) 08/16/24 08:57 Glucose 143.0 mg/dL (70-115) H 08/16/24 08:57 Ionized Calcium 1.2 mmol/L (1.1-1.4) 08/16/24 08:57 O2 Delivery Device Room air 08/16/24 08:57 FiO2 21.0 % 08/16/24 08:57 Final Inspector Movement Assembly ID [place] 08/16/24 08:57 Sodium 144 mmol/L (136-145) 08/16/24 08:33 Potassium 4.7 mmol/L (3.5-5.1) 08/16/24 08:33 Chloride 109 mmol/L (98-107) H 08/16/24 08:33 Carbon Dioxide 21 mmol/L (22-29) L 08/16/24 08:33 Anion Gap 18.7 (5-19) 08/16/24 08:33 BUN 24 mg/dL (6-20) H 08/16/24 08:33 Creatinine 1.2 mg/dL (0.7-1.2) 08/16/24 08:33 GFR Calculation 64.9 mL/min (90-130) L 08/16/24 08:33 Glucose 145 mg/dL (65-115) H 08/16/24 08:33 POC Glucose 121 mg/dL (70-110) H 08/16/24 08:47 Calculated Osmolality 305 mOsm/kg (285-295) H 08/16/24 08:33 Lactic Acid 1.6 mmol/L (0.5-2.2) 08/16/24 08:33 Calcium 8.8 mg/dL (8.5-10.5) 08/16/24 08:33 Total Bilirubin 0.5 mg/dL (0.15-1.2) 08/16/24 08:33 AST 25 U/L (0-40) 08/16/24 08:33 ALT 21 U/L (0-41) 08/16/24 08:33 Alkaline Phosphatase 80 U/L (40-130) 08/16/24 08:33 Ammonia 45 umol/L (16-60) 08/16/24 10:59 Creatine Kinase 479 U/L (39-308) H* 08/16/24 08:33 Troponin T Baseline 10 ng/L (0-15) 08/16/24 08:33 Troponin T 120 Minute 9.18 ng/L (0-15) 08/16/24 10:59 Delta Troponin T -0.82 ABS# (0-10) L 08/16/24 10:59 Total Protein 7.8 g/dL (6.6-8.7) 08/16/24 08:33 Albumin 4.7 g/dL (3.5-5.2) 08/16/24 08:33 Globulin 3.1 g/dL (1.3-4.6) 08/16/24 08:33 Lipase 22 U/L (13-60) 08/16/24 08:33 Urine Color Dark yellow (Yellow) A 08/16/24 09:20 Urine Appearance Turbid (CLEAR) A 08/16/24 09:20 Urine pH 5.5 (5-7) 08/16/24 09:20 Ur Specific [place] 1.037 (1.005-1.030) H 08/16/24 09:20 Urine Protein 2+ (Negative) A 08/16/24 09:20 Urine Glucose (UA) Negative (Normal) 08/16/24 09:20 Urine Ketones Trace (Negative) 08/16/24 09:20 Urine Blood Negative (Negative) 08/16/24 09:20 Urine Nitrate Negative (Negative) 08/16/24 09:20 Urine Bilirubin Negative (Negative) 08/16/24 09:20 Urine Urobilinogen 1.0 mg/dL (Negative) 08/16/24 09:20 Ur Leukocyte Esterase Negative (Negative) 08/16/24 09:20 Urine RBC 0-2 /hpf (0-2) 08/16/24 09:20 Urine WBC 0-5 /hpf (0-5) 08/16/24 09:20 Ur Squamous Epith Cells 0-5 /hpf (0-5) 08/16/24 09:20 Amorphous Sediment 3+ /hpf 08/16/24 09:20 Urine Bacteria None seen /hpf (NONE) 08/16/24 09:20 Hyaline Casts 3.30 /lpf 08/16/24 09:20 Salicylates < 0.3 mg/dL (3-10) L 08/16/24 08:33 Urine Opiates Screen Negative ng/mL (Negative) 08/16/24 09:20 Acetaminophen < 5.0 ug/mL (10-30) L 08/16/24 08:33 Ur Barbiturates Screen Negative ng/mL (Negative) 08/16/24 09:20 Ur Phencyclidine Scrn Negative ng/mL (Negative) 08/16/24 09:20 Ur Amphetamines Screen Positive ng/mL (Negative) H 08/16/24 09:20 U Benzodiazepines Scrn Negative ng/mL (Negative) 08/16/24 09:20 Urine Cocaine Screen Negative ng/mL (Negative) 08/16/24 09:20 U Marijuana (THC) Screen Negative ng/mL (Negative) 08/16/24 09:20 Ethyl Alcohol < 10 mg/dL (0-10) 08/16/24 08:33 Serum Ketones Negative (Negative) 08/16/24 08:33 Hepatitis A IgM Ab Non-reactive (Nonreactive) 08/16/24 08:33 Hep Bs Antigen Non-reactive (Nonreactive) 08/16/24 08:33 Hep B Core IgM Ab Non-reactive (Nonreactive) 08/16/24 08:33 Hepatitis C Antibody Non-reactive (Nonreactive) 08/16/24 08:33 HIV 1&2 Ab & HIV 1 Ag Non-reactive (Non-Reactiv) 08/16/24 08:33 HIV 1&2 Antibody Non-reactive (Non-Reactiv) 08/16/24 08:33 All radiology interpretation(s) finalized by discharge Discharge Plan Discharge Patient Disposition: Admitted As Inpatient Admit Provider: Oniel Nath Clinical Impression: Acute encephalopathy, Rhabdomyolysis, Amphetamine intoxication Condition: Stable Coding Level of Care Code ED Corporate Licensed Broker for Nadja Pina
--- NOTE | 2024-08-16 08:46 | PC.PHAR ---
CALLED BOTH PHARMACIES LISTED ON PATIENTS PROFILE, NO RECENT MEDICATIONS FILLED IN OVER 6 MONTHS FROM HIS DISCHARGE BACK IN OCTOBER
--- NOTE | 2024-08-16 08:47 | CT_ITS ---
WS: [id number] CT HEAD NONCONTRAST HISTORY: altered mental status TECHNIQUE: Contiguous axial imaging performed through the brain. Bone and soft tissue windows. Sagittal and coronal reformats reviewed. All CT scans at [facility] use at least one of these dose optimization techniques: automated exposure control; mA and/or kV adjustment per patient size (includes targeted exams where dose is matched to clinical indication); or iterative reconstruction. DLP: 2366.98 mGy.cm COMPARISON: 01/04/2021 No acute intracranial hemorrhage, midline shift or mass effect. No atrophy or prior infarcts or herniation. Ventricles: Normal size with no hydrocephalus. No inferior displacement of the cerebellar tonsils. Paranasal sinuses: Mild mucoperiosteal thickening in the RIGHT maxillary sinus. No air-fluid levels. There is motion artifact obscuring detail. Prior remote fractures with postsurgical repair involving the LEFT facial bones. Mastoid air cells: Well pneumatized. Calvarium and scalp: Skull is intact with no soft tissue edema or swelling. CT/CT head wo con* [id number] IMPRESSION: 1. No acute intracranial hemorrhage or edema. 2. Stable CT head since 01/04/2021.
[2024-08-16 08:57] LABS: Alanine Aminotransferase 21 U/L (0-41); Albumin Level 4.7 g/dL (3.5-5.2); Alkaline Phosphatase 80 U/L (40-130); Anion Gap 18.7 (5-19); Aspartate Amino Transferase 25 U/L (0-40); Blood Urea Nitrogen 24 mg/dL (6-20); Calcium 8.8 mg/dL (8.5-10.5); Carbon Dioxide 21 mmol/L (22-29); Chloride 109 mmol/L (98-107); Globulin 3.1 g/dL (1.3-4.6); Glomerular Filtration Rate 64.9 mL/min (90-130); Glucose 145 mg/dL (65-115); Ketone (Acetest) Serum Negative (Negative); Osmolality Calculated 305 mOsm/kg (285-295); Potassium 4.7 mmol/L (3.5-5.1); Sodium 144 mmol/L (136-145); Total Bilirubin 0.5 mg/dL (0.15-1.2); Total Protein 7.8 g/dL (6.6-8.7)
[2024-08-16] MEDS: naloxone 0.4 mg/ml SDV IVP (09:01)
[2024-08-16 09:02] LABS: Glucose Point of Care 121 mg/dL (70-110)
[2024-08-16 09:06] LABS: Lactic Sepsis W/Reflex 1.6 mmol/L (0.5-2.2); Lipase 22 U/L (13-60)
[2024-08-16 09:08] LABS: ABG PCO2 40.4 mmHg (35-45); ABG PH Result 7.37 (7.35-7.45); Alveolar-Arterial Oxygen Gradi 3.1 mmHg (5-10); Arterial Blood Gas Hematocrit 40.9 % (42-52); Blood Gas Allen Test Pos; Blood Gas Operator Identificat WALCI; Blood Gas Sample Site Brachial, left; Blood Gas Sample Type Arterial; Carboxyhemoglobin 0.8 %THgb (0.4-20.1); HCO3 ABG 23.2 mmol/L (22-26); Ionized Calcium Level - ABG 1.2 mmol/L (1.1-1.4); Methemoglobin 1.3 % (0.4-1.5); Oxygen Device ROOM AIR; PO2 ABG 74.4 mmHg (80.0-100.0); PO2 FiO2 Ratio Arterial Blood 354; Potassium Level - ABG 4.5 mmol/L (3.5-5.0); Total Hemoglobin 13.4 g/dL (14-18)
[2024-08-16 09:15] LABS: Acetaminophen < 5.0 ug/mL (10-30); Alcohol Level < 10 mg/dL (0-10); Creatine Phosphokinase 479 U/L (39-308); Salicylate < 0.3 mg/dL (3-10)
[2024-08-16 09:33] LABS: Amphetamines Screen Urine Positive (Negative); Barbiturates Screen Urine Negative (Negative); Benzodiazepines Screen Urine Negative (Negative); Cocaine Screen Urine Negative (Negative); Opiate Screen Urine Negative (Negative); PCP Screen Urine Negative (Negative); THC Screen Urine Negative (Negative)
--- NOTE | 2024-08-16 10:24 | CT_ITS ---
WS: [id number] CTA CHEST WITH CT ABDOMEN AND PELVIS. HISTORY: Unresponsive. TECHNIQUE: CT angiogram is performed through the chest. Additional imaging is performed through the abdomen and pelvis with IV contrast. Sagittal and coronal reformats have been submitted. MIP imaging also reviewed. All CT scans at [facility] use at least one of these dose optimization techniques: automated exposure control; mA and/or kV adjustment per patient size (includes targeted exams where dose is matched to clinical indication); or iterative reconstruction. Contrast: Omnipaque 350; 95 cc IV. DLP: 1395.74 mGy.cm COMPARISON: 12/14/2017 Chest CTA: Limited opacification of the pulmonary arteries due to poor injection bolus. Pulmonary artery size is normal. There is no central pulmonary embolism. Beyond the lobar branches opacification is limited. There is also motion artifact. Heterogeneous opacification of the upper lobe arteries I believe is all secondary to breathing motion. No pneumothorax. No pulmonary mass or nodule. Mild dependent changes at the lung bases. Normal size aorta. No RIGHT heart strain. Very minimal cardiomegaly. No adenopathy. Abdomen CT: Small hiatal hernia. Liver, spleen, pancreas and adrenal glands are negative. Well distended gallbladder. There is a small amount of increased attenuation in the gallbladder which may be stones or sludge. No gallbladder wall thickening or bile duct dilatation. No renal obstruction. 9 mm exophytic cyst lower pole RIGHT kidney. Cyst is new since 2018. Postsurgical changes associated with the stomach may be from prior bypass surgery. There is no GI tract obstruction. No mesenteric injury or hematoma. No appendicitis. Mild constipation. Pelvic CT: Urinary bladder is negative. No free fluid in the pelvis. 6 mm anterolisthesis of L5, bilateral pars defects. No fractures or bone destruction. CT/CT angio chest w abd pel w con IMPRESSION: 1. Study is compromised by motion artifact. 2. No central pulmonary embolism. Beyond the lobar branches opacification micheal use limited by motion. 3. No RIGHT heart strain. 4. No pneumonia or pulmonary laceration. 5. No acute findings within the abdomen or pelvis. 6. No mesenteric injury or ascites. 7. No GI tract obstruction. 8. Possible stones or sludge within the gallbladder. No evidence for acute cho lecystitis.
[2024-08-16] MEDS: iohexol 350 mg/mL 500 mL Btl (per mL) IV (11:14)
--- NOTE | 2024-08-16 11:37 | ECG_ITS ---
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 Measurements Intervals [place] Rate: 89 P: 154 OR: 152 QRS: 10 QRSD: 99 T: 136 QT: 340 QTc: 415 Interpretive Statements Normal sinus rhythm INDETERMINATE AXIS ABNORMAL QRS-T ANGLE [QRS-T AXIS DIFFERENCE > 60] Compared to ECG 11/07/2023 06:05:00 Left anterior fascicular block no longer present Electronically Signed On 08-17-2024 13:26:01 CDT by Arnel Santos M.D. [email or web address] [id number]
[2024-08-16 11:45] LABS: Ammonia 45 umol/L (16-60)
[2024-08-16 12:08] LABS: Troponin(5th) Baseline 10 ng/L (0-15)
[2024-08-16 12:37] LABS: Troponin 5 2HR 9.18 ng/L (0-15); Troponin 5 2HR Delta -0.82 ABS# (0-10)
--- NOTE | 2024-08-16 13:37 | ECG_ITS ---
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 Measurements Intervals [place] Rate: 92 P: 138 LA: 155 QRS: -27 QRSD: 98 T: 44 QT: 379 QTc: 471 Interpretive Statements SINUS RHYTHM BORDERLINE LEFT AXIS DEVIATION [QRS AXIS < -20] ABNORMAL RHYTHM ECG Compared to ECG 08/16/2024 08:10:44 Indeterminate axis no longer present Electronically Signed On 08-17-2024 13:37:29 CDT by Arnel Santos M.D. [id number]
--- NOTE | 2024-08-16 14:26 | PM.HP ---
Providers/Chief Complaint Admitting Physician: Oniel Nath Chief Complaint: possible drug use History of Present Illness Mr. Salinas was encountered in the hospital following a referral from the ER. The patient was found confused, not responding appropriately on a bench in town. In the ER not providing history, able to wake up enough to mumble his name, not answering other questions. During the encounter, he was briefly awake but remained largely non-responsive and did not follow directions. He demonstrated intermittent jerking/dropping movements in his hands consistent with asterixis. The provider inquired about headache, pain, or any recollection of earlier events, but the patient was unable to provide further details. Review of Systems General: Reports: ROS unobtainable due to mental status Medications/Allergies Home Medications ?Medication ?Instructions ?Recorded ?Confirmed ?Last Taken ?Type No Known Home Medications 08/16/24 08/16/24 Unknown History Allergies Allergy/AdvReac Type Severity Reaction Status Date / Time lisinopril Allergy Severe swells up Verified 04/18/24 19:11 from it Penicillins Allergy Severe hives and Verified 04/18/24 19:11 feels like he is choking. PFSH Acute PFSH: Medical History (Updated 08/16/24 @ 14:33 by Oniel Nath MD) Psychiatric care Amphetamine abuse Generalized anxiety disorder Nicotine dependence, cigarettes, uncomplicated Adderall use disorder, moderate, in sustained remission, in controlled environment, dependence Major depressive disorder, recurrent, moderate Surgical History (Updated 08/16/24 @ 14:32 by Oniel Nath MD) History of ankle surgery H/O gastric sleeve History of hand surgery History of facial surgery Family History Father Dementia Stroke Myocardial infarction Mother Myocardial infarction Social History Smoking and tobacco/nicotine status: current every day tobacco/nicotine user Alcohol intake: current Alcohol intake frequency: holidays/special occasions only Alcohol type: hard liquor (rum a couple shots) Substance/Drug Use: former Date of last use: 15 days ago Vitals/I&O/Wt Last Vital Signs Temp 97.8 F 08/16/24 08:07 Pulse 89 04/18/25 13:30 Resp 25 H 08/16/24 13:30 BP 123/72 08/16/24 13:30 Pulse Ox 95 08/16/24 13:30 O2 Del Method Room Air 08/16/24 13:30 O2 Flow Rate 2 08/16/24 10:00 Physical Exam Const: ORIENTATION/CONSCIOUSNESS: Yes confused and Yes lethargic OTHER: Tries to open eyes to voice. Some minimal effort to follow directions. Crosses his leg spontaneously. HENMT: COMMON NORMALS: oropharynx normal Eye: OTHER: Equal, reactive to light, 3 mm in size. Neck/C-Spine: COMMON NORMALS: no JVD Resp: COMMON NORMALS: normal respiratory effort and clear to auscultation bilaterally AUSCULTATION: clear to auscultation bilaterally Cardio: COMMON NORMALS: no JVD, regular rhythm, S1 normal heart sound present, S2 normal heart sound present and No murmurs present (Cardio) RHYTHM: regular rhythm HEART SOUNDS: S1 normal heart sound present and S2 normal heart sound present GI: COMMON NORMALS: Normal to inspection, nondistended, normoactive bowel sounds present, Soft to palpation and non-tender PALPATION: Yes Soft to palpation Extremity: COMMON NORMALS: no joint enlargement and no pedal edema OTHER: 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 Skin: COMMON NORMALS: no rashes or lesions noted GENERAL SKIN EXAM: no rashes or lesions noted Data 08/16/24 08:33 08/16/24 08:33 A&P Assessment and plan (1) Acute encephalopathy: Encephalopathy, possible acute toxic encephalopathy suspected secondary to amphetamine use, with asterixis, lethargy, confusion. Unable to answer questions. Without background history, history obtained from ER staff. Reviewed vitals, CBC, ABG, CMP, CK, troponin, EKG, lipase, UDS, requested HIV, hepatitis panel, reviewed chest x-ray, head CT, CT chest abdomen pelvis, ER provider note, discussed with ER provider. On presentation without fever, tachycardia, tachypnea, leukocytosis, with normal lactic acid, mild CIELO, creatinine to 1.2, BUN 24, mild dehydration. Naloxone reversal was attempted, but without response. UDS positive for amphetamine. Past history of amphetamine use disorder. Currently with noted mild rhabdomyolysis. Troponin without suggestion of cardiac ischemia, EKG unremarkable on my interpretation, pending official read. Reviewed past psychiatric medications, unclear that he is taking any of them, no refill since October 2023. Later in the afternoon on review of vitals again, noted febrile up to 101 Fahrenheit. Lethargic, answering a few brief answers, but not waking up sufficiently, not following directions. Discussed with nursing, without obvious source of infection. CT angiogram without sign of PE, no integumentary, GI symptoms of infection, no pulmonary symptoms of infection. Requested respiratory viral panel. Requested UA. Per discussion with nursing obtain bladder scan, straight cath if needed. Requested blood culture. Discussed with IR, making arrangements for LP. Requesting fluid analysis, Gram stain and bacterial and fungal cultures. Glucose. Adenosine deaminase. Droplet isolation for now until lumbar puncture without gram-negative diplococci. Admission to intensive care unit, continue to monitor vitals, so far has been protecting his airway. Monitor for risk of respiratory failure. Reassess CK for rhabdomyolysis. Monitor on telemetry due to risk of arrhythmia with amphetamine intoxication. Complete troponin EKG series with risk of cardiac ischemia. Will need to obtain history once he is able to provide it, does have a history of depression and suicidal ideation in the past, this will need to be further excluded once he is able to communicate. Attempted to call his home number, without answer. (2) Amphetamine intoxication: As above. (3) Methamphetamine use disorder, severe: Once he is able to communicate, consider case management consultation for rehabilitation options. (4) Acute kidney injury: Mild CIELO, BUN 24, creatinine 1.2. Received fluid challenge. Reassess renal parameters. Monitor intake and output. Every 4 hour bladder scan, straight cath as needed. Obtain UA. Without obstructive uropathy on CT. (5) Rhabdomyolysis: Mild rhabdomyolysis, CK4 179. Repeat CK level with amphetamine intoxication. (6) Biliary sludge: Incidentally noted on CT. Without abdominal pain/right upper quadrant tenderness on palpation. Reviewed CMP, unremarkable liver parameters. Follow-up liver parameters. Possibly mild cholestasis secondary to dehydration. Receiving IV fluid. Reassess CMP. Will benefit from outpatient follow-up. Plan Smoking: Nicotine replacement as needed. MDD: Previously on aripiprazole, bupropion back in October 2023 for per review of psychiatry note, unclear if has been taking medications. PDMP PDMP Reviewed: Not Reviewed Attestations Medical Necessity Statement*: Admission of over 2 midnights anticipated for assessment management of acute encephalopathy, possible acute toxic encephalopathy secondary to amphetamine, however, febrile, assess for possible FOOD AND BEVERAGE ANALYST infection/meningitis/encephalitis. Coding Level of Care Code Critical Care >/= 30 minutes Critical care time (in minutes): 45 The high probability of a clinically significant, sudden or life threatening deterioration, as referenced in this documentation, required my full and direct attention, intervention and personal management. The critical care time shown is in addition to time spent performing any reported separately billable procedures and includes the following: [x] Data and vital sign review and interpretation [x] Patient assessment, examination and intervention [x] Medication orders and management [x] Patient/Family updates as able [x] Care Coordination and Documentation. Diagnoses Acute encephalopathy G93.40 Amphetamine intoxication F15.929 Methamphetamine use disorder, severe F15.20 Acute kidney injury N17.9 Rhabdomyolysis M62.82 Biliary sludge K83.8
[2024-08-16 14:43] LABS: Troponin 5 6HR 11.19 ng/L (0-15); Troponin 5 6HR Delta 1.19 ng/L (0-12)
--- NOTE | 2024-08-16 14:47 | PC.NURSE ---
Patient arrived from ER lethargic and not wanting to cooperate. Patient was able to state their name, date of and what year it is. Patient was uncooperative after that.
[2024-08-16] MEDS: enoxaparin 40 mg/0.4 mL Syringe SUBCUT (15:02)
[2024-08-16] MEDS: D5-NS 0.45% + KCL 20 mEq 20 MEQ/1,000 ML BAG 100 MEQ IV (15:03)
[2024-08-16 15:26] LABS: HIV 1 & 2 Antibody Non-Reactive (Non-Reactiv); HIV 1 & 2 Antigen Non-Reactive (Non-Reactiv)
[2024-08-16 15:32] LABS: Hepatitis A Antibody IgM Non-Reactive (Nonreactive); Hepatitis B Core IgM Non-Reactive (Nonreactive); Hepatitis B Surface Antigen Non-Reactive (Nonreactive); Hepatitis C Virus Antibody Non-Reactive (Nonreactive)
--- NOTE | 2024-08-16 15:32 | FL_ITS ---
WS: [id number] Exam: [place] guided lumbpunct ther [id number] Date/Time of Exam: 08/16/2024 5:42 PM Reason For Exam: encephalopathy, fever Fluoroscopy time: Minutes # of spot films: Single AP view of the lumbar spine is submitted. The image was obtained for intraoperative visualization for lumbar puncture.
[2024-08-16 16:14] LABS: INR 0.96 (0.8-1.2)
--- NOTE | 2024-08-16 16:28 | PC.NURSE ---
Bladder was scanned and 906 mls of urine were found. Dr. Nath was notified and he stated to straight cath the patient to give them some relief.
[2024-08-16 16:47] LABS: Bacteria Urine None Seen /hpf; RBC Urine 0-2 /hpf (0-2); Squamous Epithelial Cell Urine 0-5 /hpf (0-5); WBC Urine 0-5 /hpf (0-5)
[2024-08-16 16:51] LABS: Add Urine Microscopic? YES; Bilirubin Urine Negative (Negative); Blood Urine Negative (Negative); Glucose Urine UA Negative (Normal); Ketones Urine Trace (Negative); Leukocyte Esterase Urine Negative (Negative); Nitrate Urine Negative (Negative); Protein Urine 2+ (Negative); Urine Appearance Turbid (CLEAR); Urine Color Dark Yellow (Yellow); pH Urine 5.5 (5-7)
[2024-08-16 17:12] LABS: Specific Gravity, Urine 1.037 (1.005-1.030); UA Slide Review UA Slide Review Perf
[2024-08-16 17:13] LABS: Amorphous Sediment Urine 3+ /hpf
[2024-08-16 18:06] LABS: Appearance CSF CLEAR (CLEAR); Color CSF COLORLESS (COLORLESS); Cyto Order Verification No Order
--- NOTE | 2024-08-16 18:10 | PHA.VACGOAL ---
Vancomycin Goal - Goal Vancomycin Goal:: 15-20 mg/L Vancomycin Indication:: Other (Possible meningitis/encephalitis) - Therapy Current therapy:: Meropenem Day of therpy:: Day 1 of [] Actual body weight (kg): 212 lb 11.937 oz - Data Labs: WBC 10.51 10^3/uL (3.29-11.43) 08/16/24 08:33 RBC 4.56 10^6/uL (3.85-5.65) 08/16/24 08:33 Hgb 13.60 g/dL (11.27-16.99) 08/16/24 08:33 Hct 41.9 % (37-53) 08/16/24 08:33 MCV 91.9 fl (82-101) 08/16/24 08:33 MCH 29.8 pg (27-33) 08/16/24 08:33 MCHC 32.5 g/dL (30-55) 08/16/24 08:33 RDW 12.9 % (12.1-15.1) 08/16/24 08:33 Sodium 144 mmol/L (136-145) 08/16/24 08:33 Potassium 4.7 mmol/L (3.5-5.1) 08/16/24 08:33 Chloride 109 mmol/L (98-107) H 08/16/24 08:33 Carbon Dioxide 21 mmol/L (22-29) L 08/16/24 08:33 Anion Gap 18.7 (5-19) 08/16/24 08:33 BUN 24 mg/dL (6-20) H 08/16/24 08:33 Creatinine 1.2 mg/dL (0.7-1.2) 08/16/24 08:33 GFR Calculation 64.9 mL/min (90-130) L 08/16/24 08:33 Last dialysis session:: N/A Treatment plan:: new consult Regimen:: INITIAL LOADING DOSE OF 3000 MG X 1 PER DOSING PROTOCOL. MAINTENANCE DOSE OF 1750 MG Q12H Follow up:: WILL CONTINUE TO MONITOR AND FOLLOW UP DAILY
[2024-08-16 18:21] LABS: CSF Mononuclear # 0.002 10^3/uL (50-90); Mononuclear WBC CSF % 100 % (50-90); Polynuclear WBC CSF % 0 % (0-10); Red Blood Cell CSF 0 10^3/uL (0-0); White Blood Cell CSF 2 /uL (0-5)
[2024-08-16 18:34] LABS: Adenovirus Not Detected (NOT DETECT); Chlamydia Pneumoniae Not Detected (NOT DETECT); Coronavirus 229E,HKU1,NL63,OC4 Not Detected (NOT DETECT); Human Metapneumovirus Not Detected (NOT DETECT); Human Rhinovirus/Enterovirus Not Detected (NOT DETECT); Influenza A Not Detected (NOT DETECT); Influenza A H1 Not Detected (NOT DETECT); Influenza A H1-2009 Not Detected (NOT DETECT); Influenza A H3 Not Detected (NOT DETECT); Influenza B Not Detected (NOT DETECT); Mycoplasma Pneumoniae Not Detected (NOT DETECT); Parainfluenza Virus Type 1 Not Detected (NOT DETECT); Parainfluenza Virus Type 2 Not Detected (NOT DETECT); Parainfluenza Virus Type 3 Not Detected (NOT DETECT); Parainfluenza Virus Type 4 Not Detected (NOT DETECT); Respiratory Syncytial Virus A Not Detected (NOT DETECT); Respiratory Syncytial Virus B Not Detected (NOT DETECT); SARS-COV-2 Not Detected (NOT DETECT)
[2024-08-16 18:41] LABS: Glucose CSF 80 mg/dL (40-70); Total Protein CSF 101 mg/dL (15-45)
[2024-08-16] MEDS: meropenem 1,000 mg SDV 1000 MG IVP (19:24)
[2024-08-16] MEDS: vancomycin 3,000 MG/600 ML PIGGYBACK 200 MG IV (20:12)
--- NOTE | 2024-08-16 21:31 | PC.NURSE ---
Bladder scan preformed, ~297mL urine found. Encouraged the patient to urinate in a urinal several times with no success. Patient not very cooperative. Explained straight cath procedure, and patient became very agitated and anxious on attempt. Attempt was unsuccesful with no urine return. Dr. Vasquez notified of situation and existing orders for straight cath if over 200mL retained urine found. Received new orders to place a garcia catheter.
--- NOTE | 2024-08-16 22:49 | PC.NURSE ---
Spoke with Dr. Vasquez in reference to not being able to obtain garcia catheter access. Received orders to wait about an hour, recheck urine with bladder scanner, and contact Dr. Vsaquez again. Also suggested patient be evaluated for flomax when he is able to take PO medications.
--- NOTE | 2024-08-16 23:55 | PC.NURSE ---
Spoke with Dr. Vasquez in refernce to previous order to recontact him with bladder scan results. Patient now has ~577mL urine in the bladder, and gets extremely agitated. Received orders to give 1mg Haldol IM and reattempt catheter insertion. Also discussed patient recieving D5 1/2 saline with 20meq potassium. Received orders to change fluids to D5 NS @125 continuous.
[2024-08-17] VITALS (46 sets, daily range): BP systolic 90–122; BP diastolic 49–73; PULSE 57–82; RESP 12–27; TEMP 36.5–37.7; O2SAT 94–100
[2024-08-17] MEDS: haloperidol inj 5 mg/mL INJ 1 mL 1 MG IM (00:11)
[2024-08-17] MEDS: dextrose 5%-sod chloride 0.9% 1,000 ML 125 ML IV ×3 (00:13→17:45)
--- NOTE | 2024-08-17 00:51 | PC.NURSE ---
Spoke with Dr. Vasquez in reference to patient agitation reassessment after 1mg Haldol IM. Received orders for 1mg IVP Ativan ONCE, and precedex drip for agitation.
[2024-08-17] MEDS: LORazepam 2 mg/mL INJ 1 mL 1 MG IVP (01:03)
[2024-08-17] MEDS: meropenem 1,000 mg SDV 1000 MG IVP ×4 (01:03→18:10)
[2024-08-17] MEDS: dexmedeTOMIDine 0.9 % NaCL 400 MCG/100 ML PREMIX IV (01:04)
[2024-08-17 01:30] LABS: Glucose Point of Care 112 mg/dL (70-110)
[2024-08-17 04:12] LABS: Basophils % 0.6 %; Eosinophils % 0.1 %; Hematocrit 37.1 % (37-53); Lymphocytes # 1.3 10^3/uL (0.8-4.8); Lymphocytes % 18.8 %; Mean Corpuscular HGB Conc 31.8 g/dL (30-55); Mean Corpuscular Hemoglobin 30.6 pg (27-33); Mean Corpuscular Volume 96.1 fl (82-101); Mean Platelet Volume 9.8 fL (7.4-10.4); Monocytes # 0.7 10^3/uL (0.2-0.9); Monocytes % 9.4 %; Neutrophils # 5.05 10^3/uL (1.8-7.7); Neutrophils % 70.7 %; Nucleated Red Blood Cells % 0 %; Platelet Count 199 10^3/cmm (157-399); Red Blood Count 3.86 10^6/uL (3.85-5.65); Red Cell Distribution Width 12.9 % (12.1-15.1); White Blood Count 7.14 10^3/uL (3.29-11.43)
[2024-08-17 04:33] LABS: Alanine Aminotransferase 16 U/L (0-41); Albumin Level 3.8 g/dL (3.5-5.2); Alkaline Phosphatase 61 U/L (40-130); Anion Gap 13.2 (5-19); Aspartate Amino Transferase 23 U/L (0-40); Blood Urea Nitrogen 11 mg/dL (6-20); Calcium 8.4 mg/dL (8.5-10.5); Carbon Dioxide 22 mmol/L (22-29); Chloride 109 mmol/L (98-107); Creatinine Clr Calc Pharmacy 120.2398; Globulin 2.4 g/dL (1.3-4.6); Glomerular Filtration Rate 90.4 mL/min (90-130); Glucose 115 mg/dL (65-115); Osmolality Calculated 290 mOsm/kg (285-295); Potassium 4.2 mmol/L (3.5-5.1); Sodium 140 mmol/L (136-145); Total Bilirubin 0.7 mg/dL (0.15-1.2); Total Protein 6.2 g/dL (6.6-8.7)
[2024-08-17 04:39] LABS: Creatine Phosphokinase 418 U/L (39-308)
[2024-08-17] MEDS: vancomycin 1,750 MG/350 ML PIGGYBACK 175 MG IV ×2 (05:38→18:12)
--- OUTSIDE RECORDS SUMMARY | 2024-08-17 07:40 | XMS_ITS | Clinical Summary ---
Author Organization [facility] Address [address] Attn: Epic Prelude ADT [place] [id number] Care Team Providers Care Conference Coordinator Name Role Phone Unavailable Primary Care Provider Unavailabl e Social History Tobacco Use Types Packs/Day Years Used Date Smoking Tobacco: Never Assessed Sex and Gender Information Value Date Recorded Sex Assigned at Not on file Legal Sex Male 11:43 AM [employer] Gender Identity Not on file Sexual Orientation Not on file Plan of Treatment Health Maintenance Due Date Last Done Comments DTAP/TDAP/TD VACCINES (1 - Tdap) 12/28/1995 HEPATITIS B VACCINES (1 of 3 - 19+ 3-dose series) 12/28/1995 COLORECTAL SCREENING 2021 Colorectal Cancer Screening 2021 FIT-DNA Q 3 years 2021 FIT/FOBT Q 1 year 2021 Flex Sig/CT Colonography Q 5 years 2021 INFLUENZA VACCINE (#1) 2023 PNEUMOCOCCAL VACCINE 0-49 YEARS Aged Out No longer eligible based on patient's age to complete this topic
--- OUTSIDE RECORDS SUMMARY | 2024-08-17 07:40 | XMS_ITS | Clinical Summary ---
Author Organization [facility] Address [address] [place] [address] Phone Care Team Providers Care Labor Relations Analyst Name Role Phone Unavailable Primary Care Provider Unavailabl e Social History Tobacco Use Types Packs/Day Years Used Date Smoking Tobacco: Never Assessed Sex and Gender Information Value Date Recorded Sex Assigned at Not on file Legal Sex Male 9:40 AM CDT Gender Identity Not on file Sexual Orientation [...] on patient's age to complete this topic Insurance [place]
[2024-08-17 08:22] LABS: Glucose Point of Care 100 mg/dL (70-110)
[2024-08-17] MEDS: naloxone 0.4 mg/ml SDV IVP (09:29)
--- NOTE | 2024-08-17 09:41 | PC.NURSE ---
Patient will wake up and say his name only. WIll fall asleep again in the middle of additional orientation questioning. Vitals within normal limits. Suspecting potential opiate overdose contributing to continued altered mental, Dr Meredith ordered narcan. Narcan given, had no effect. Patient continues to be oriented to self only, very lethargic. Vitals within normal limits. protecting airway.
--- NOTE | 2024-08-17 13:32 | P.PN_ITS ---
Subjective 2 Subjective: no acute overnight events noted. patient still drowsy but not agitated. required precedex drip overnight. gave another dose of narcan this morning but with no benefit. was able to answer simple questions with Yes/No answers. Medications: Reviewed: Yes Vitals/I&O/Wt Last Vital Signs Temp 98.3 F 08/17/24 12:30 Pulse 67 08/17/24 12:30 Resp 16 08/17/24 12:30 BP 109/69 08/17/24 12:30 Pulse Ox 99 08/17/24 12:30 O2 Del Method Room Air 08/17/24 10:00 O2 Flow Rate 2 08/16/24 10:00 08/16/24 08/17/24 08/17/24 22:59 06:59 14:59 Intake Total 1556.523 / 2314.748 0239.888 / 1351.888 Output Total 900 / 900 250 / 1150 525 / 525 Balance -900 / -900 1306.523 / 406.523 826.888 / 826.888 Weight last 48 hrs Weight 96.046 kg Weight 96.5 kg Physical Exam 2 Const: GENERAL APPEARANCE: lethargic ORIENTATION/CONSCIOUSNESS: Yes confused and Yes lethargic OTHER: Tries to open eyes to voice. Some minimal effort to follow directions. Crosses his leg spontaneously. HENMT: COMMON NORMALS: oropharynx normal Eye: OTHER: Equal, reactive to light, 3 mm in size. Neck/C-Spine: COMMON NORMALS: no JVD Resp: COMMON NORMALS: normal respiratory effort and clear to auscultation bilaterally AUSCULTATION: clear to auscultation bilaterally Cardio: COMMON NORMALS: no JVD, regular rhythm, S1 normal heart sound present, S2 normal heart sound present and No murmurs present (Cardio) RHYTHM: regular rhythm HEART SOUNDS: S1 normal heart sound present and S2 normal heart sound present GI: COMMON NORMALS: Normal to inspection, nondistended, normoactive bowel sounds present, Soft to palpation and non-tender PALPATION: Yes Soft to palpation Extremity: COMMON NORMALS: no joint enlargement and no pedal edema OTHER: 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 Skin: COMMON NORMALS: no rashes or lesions noted GENERAL SKIN EXAM: no rashes or lesions noted Urinary Catheter Management: Gray: Cath Placed During This Visit: yes Reason for Continuing Indwelling Catheter: Accurate Measurement of Urinary Output in Critically Ill Patients Urinary Catheter Date of Insertion: 08/17/24 Urinary Catheter Time of Insertion: 02:00 Data 08/17/24 03:51 08/17/24 03:51 Micro: Microbiology 08/16/24 15:53 Blood Culture - Preliminary Blood SPECIMEN COLLECTED 08/16/24 15:50 Blood Culture - Preliminary Blood SPECIMEN COLLECTED A&P Assessment and plan (1) Acute encephalopathy: Encephalopathy, possible acute toxic encephalopathy suspected secondary to amphetamine use, with asterixis, lethargy, confusion. Unable to answer questions. Without background history, history obtained from ER staff. Reviewed vitals, CBC, ABG, CMP, CK, troponin, EKG, lipase, UDS, requested HIV, hepatitis panel, reviewed chest x-ray, head CT, CT chest abdomen pelvis, ER provider note, discussed with ER provider. On presentation without fever, tachycardia, tachypnea, leukocytosis, with normal lactic acid, mild CIELO, creatinine to 1.2, BUN 24, mild dehydration. Naloxone reversal was attempted, but without response. UDS positive for amphetamine. Past history of amphetamine use disorder. Currently with noted mild rhabdomyolysis. Troponin without suggestion of cardiac ischemia, EKG unremarkable on my interpretation, pending official read. Reviewed past psychiatric medications, unclear that he is taking any of them, no refill since October 2023. Later in the afternoon on review of vitals again, noted febrile up to 101 Fahrenheit. Lethargic, answering a few brief answers, but not waking up sufficiently, not following directions. Discussed with nursing, without obvious source of infection. CT angiogram without sign of PE, no integumentary, GI symptoms of infection, no pulmonary symptoms of infection. Requested respiratory viral panel. Requested UA. Per discussion with nursing obtain bladder scan, straight cath if needed. Requested blood culture. Discussed with IR, making arrangements for LP. Requesting fluid analysis, Gram stain and bacterial and fungal cultures. Glucose. Adenosine deaminase. Droplet isolation for now until lumbar puncture without gram-negative diplococci. Admission to intensive care unit, continue to monitor vitals, so far has been protecting his airway. Monitor for risk of respiratory failure. Reassess CK for rhabdomyolysis. Monitor on telemetry due to risk of arrhythmia with amphetamine intoxication. Complete troponin EKG series with risk of cardiac ischemia. Will need to obtain history once he is able to provide it, does have a history of depression and suicidal ideation in the past, this will need to be further excluded once he is able to communicate. Attempted to call his home number, without answer. 08/17/24 Viral panel negative. LP done yesterday to r/o meningitis. will follow up on studies. Continue fluids and iv vancomycin and meropenem for now. Hold precedex drip. hemodynamically stable. will continue to monitor in ICU (2) Amphetamine intoxication: As above. (3) Methamphetamine use disorder, severe: Once he is able to communicate, consider case management consultation for rehabilitation options. (4) Acute kidney injury: Mild CIELO, BUN 24, creatinine 1.2. Received fluid challenge. Reassess renal parameters. Monitor intake and output. Every 4 hour bladder scan, straight cath as needed. Obtain UA. Without obstructive uropathy on CT. (5) Rhabdomyolysis: Mild rhabdomyolysis, CK4 479. Repeat CK level with amphetamine intoxication. CK trending down to 418. (6) Biliary sludge: Incidentally noted on CT. Without abdominal pain/right upper quadrant tenderness on palpation. Reviewed CMP, unremarkable liver parameters. Follow-up liver parameters. Possibly mild cholestasis secondary to dehydration. Receiving IV fluid. Reassess CMP. Will benefit from outpatient follow-up. Plan Smoking: Nicotine replacement as needed. MDD: Previously on aripiprazole, bupropion back in October 2023 for per review of psychiatry note, unclear if has been taking medications. 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 Coding Level of Care Code Acute Code for [facility] Fwd Diagnoses Acute encephalopathy G93.40 Amphetamine intoxication F15.929 Methamphetamine use disorder, severe F15.20 Acute kidney injury N17.9 Rhabdomyolysis M62.82 Biliary sludge K83.8
--- NOTE | 2024-08-17 14:20 | PC.NURSE ---
Addendum entered by Tyler Leyva RN 08/17/24 17:57: Later in the shift, patient remembered more from night of the constitution party. Recalls smoking meth and drank a small amount of alcohol. Original Note: While rounding at 1400, patient woke up rather suddenly. Oriented to person, place, and time. States that last thing he remembers was being at a birthday constitution party and his friend telling him you don't look good, are you alright , and then waking up just now at the hospital. Nurse asked if he had taken any substances at the constitution party. Patient freely admits to being a methamphetamine user, but he does not remember taking anything at the constitution party. However, he also states that he has little to no memory of the events at the constitution party. Nurse alerted Dr Meredith to mental status changes.
[2024-08-17] MEDS: enoxaparin 40 mg/0.4 mL Syringe SUBCUT (15:58)
--- NOTE | 2024-08-17 17:58 | PC.NURSE ---
Shift SUmmary: Initially patient was oriented to self only. Mid shift he became more alert, currently oriented to person, place, time, and situation. Up in a chair. Started on a diet and is tolerating well. Total urine output: 900mL. Catheter removed near end of shift, Initially placed due to urinary retention.
[2024-08-18] VITALS (25 sets, daily range): BP systolic 98–119; BP diastolic 50–75; PULSE 56–79; RESP 14–23; TEMP 36.4–36.8; O2SAT 96–98
[2024-08-18] MEDS: meropenem 1,000 mg SDV 1000 MG IVP ×2 (00:23→06:04)
[2024-08-18] MEDS: acetaminophen 325 mg Tablet 650 MG PO (03:29)
[2024-08-18] MEDS: dextrose 5%-sod chloride 0.9% 1,000 ML 125 ML IV (04:06)
[2024-08-18 04:43] LABS: Basophils % 0.8 %; Eosinophils # 0.1 10^3/uL (0.0-0.8); Eosinophils % 1.4 %; Hematocrit 35.5 % (37-53); Lymphocytes # 1.1 10^3/uL (0.8-4.8); Lymphocytes % 20.8 %; Mean Corpuscular Hemoglobin 30.1 pg (27-33); Mean Platelet Volume 9.9 fL (7.4-10.4); Monocytes # 0.4 10^3/uL (0.2-0.9); Monocytes % 7.1 %; Neutrophils # 3.52 10^3/uL (1.8-7.7); Neutrophils % 69.5 %; Nucleated Red Blood Cells % 0 %; Platelet Count 161 10^3/cmm (157-399); Red Blood Count 3.66 10^6/uL (3.85-5.65); Red Cell Distribution Width 12.7 % (12.1-15.1); White Blood Count 5.06 10^3/uL (3.29-11.43)
[2024-08-18 05:03] LABS: Alanine Aminotransferase 11 U/L (0-41); Albumin Level 3.4 g/dL (3.5-5.2); Alkaline Phosphatase 50 U/L (40-130); Anion Gap 13.8 (5-19); Aspartate Amino Transferase 15 U/L (0-40); Blood Urea Nitrogen 12 mg/dL (6-20); Calcium 8.1 mg/dL (8.5-10.5); Carbon Dioxide 20 mmol/L (22-29); Chloride 107 mmol/L (98-107); Creatinine Clr Calc Pharmacy 134.9766; Globulin 2.1 g/dL (1.3-4.6); Glomerular Filtration Rate 103.6 mL/min (90-130); Glucose 129 mg/dL (65-115); Osmolality Calculated 285 mOsm/kg (285-295); Potassium 3.8 mmol/L (3.5-5.1); Sodium 137 mmol/L (136-145); Total Bilirubin 0.3 mg/dL (0.15-1.2); Total Protein 5.5 g/dL (6.6-8.7)
[2024-08-18 05:08] LABS: Anion Gap 15.8 (5-19); Blood Urea Nitrogen 12 mg/dL (6-20); Calcium 8.3 mg/dL (8.5-10.5); Carbon Dioxide 20 mmol/L (22-29); Chloride 106 mmol/L (98-107); Creatine Phosphokinase 206 U/L (39-308); Creatinine Clr Calc Pharmacy 134.9766; Glomerular Filtration Rate 103.6 mL/min (90-130); Glucose 127 mg/dL (65-115); Osmolality Calculated 287 mOsm/kg (285-295); Potassium 3.8 mmol/L (3.5-5.1); Sodium 138 mmol/L (136-145)
[2024-08-18] MEDS: vancomycin 1,750 MG/350 ML PIGGYBACK 175 MG IV (06:03)
--- NOTE | 2024-08-18 10:43 | PM.PN ---
Subjective Subjective: No acute overnight events noted, he is alert awake and oriented x 4, tolerating po intake. Medications: Reviewed: Yes Vitals/I&O/Wt Last Vital Signs Temp 98 F 08/18/24 08:00 Pulse 64 08/18/24 10:00 Resp 20 H 08/18/24 10:00 BP 107/67 08/18/24 10:00 Pulse Ox 98 08/18/24 10:00 O2 Del Method Room Air 08/18/24 06:00 O2 Flow Rate 2 08/16/24 10:00 08/17/24 08/18/24 08/18/24 22:59 06:59 14:59 Intake Total 1350 / 2701.888 2102 / 4803.888 300 / 300 Output Total 375 / 900 850 / 1750 Balance 975 / 9350.842 7475 / 3053.888 300 / 300 Weight last 48 hrs Weight 100 kg Weight 96.046 kg Weight 96.5 kg Physical Exam Const: ORIENTATION/CONSCIOUSNESS: Yes awake, Yes oriented to person, Yes oriented to place and Yes oriented to time HENMT: COMMON NORMALS: oropharynx normal Eye: OTHER: Equal, reactive to light, 3 mm in size. Neck/C-Spine: COMMON NORMALS: no JVD Resp: COMMON NORMALS: normal respiratory effort and clear to auscultation bilaterally AUSCULTATION: clear to auscultation bilaterally Cardio: COMMON NORMALS: no JVD, regular rhythm, S1 normal heart sound present, S2 normal heart sound present and No murmurs present (Cardio) RHYTHM: regular rhythm HEART SOUNDS: S1 normal heart sound present and S2 normal heart sound present GI: COMMON NORMALS: Normal to inspection, nondistended, normoactive bowel sounds present, Soft to palpation and non-tender PALPATION: Yes Soft to palpation Extremity: COMMON NORMALS: no joint enlargement and no pedal edema OTHER: 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 Skin: COMMON NORMALS: no rashes or lesions noted GENERAL SKIN EXAM: no rashes or lesions noted Urinary Catheter Management: Gray: Cath Placed During This Visit: yes, but has since been removed by the nurse Reason for Continuing Indwelling Catheter: Decision to DC Catheter Urinary Catheter Date of Insertion: 08/17/24 Urinary Catheter Time of Insertion: 02:00 Date Urinary Catheter Removed: 08/17/24 Time Urinary Catheter Discontinued: 17:54 Data 08/18/24 04:27 08/18/24 04:27 Micro: Microbiology 08/16/24 15:53 Blood Culture - Preliminary Blood NEGATIVE TO DATE 08/16/24 15:50 Blood Culture - Preliminary Blood NEGATIVE TO DATE 08/16/24 17:34 Gram Stain - Final Cerebrospinal Fluid CSF Culture - Preliminary A&P Assessment and plan (1) Acute encephalopathy: Encephalopathy, possible acute toxic encephalopathy suspected secondary to amphetamine use, with asterixis, lethargy, confusion. Unable to answer questions. Without background history, history obtained from ER staff. Reviewed vitals, CBC, ABG, CMP, CK, troponin, EKG, lipase, UDS, requested HIV, hepatitis panel, reviewed chest x-ray, head CT, CT chest abdomen pelvis, ER provider note, discussed with ER provider. On presentation without fever, tachycardia, tachypnea, leukocytosis, with normal lactic acid, mild CIELO, creatinine to 1.2, BUN 24, mild dehydration. Naloxone reversal was attempted, but without response. UDS positive for amphetamine. Past history of amphetamine use disorder. Currently with noted mild rhabdomyolysis. Troponin without suggestion of cardiac ischemia, EKG unremarkable on my interpretation, pending official read. Reviewed past psychiatric medications, unclear that he is taking any of them, no refill since October 2023. Later in the afternoon on review of vitals again, noted febrile up to 101 Fahrenheit. Lethargic, answering a few brief answers, but not waking up sufficiently, not following directions. Discussed with nursing, without obvious source of infection. CT angiogram without sign of PE, no integumentary, GI symptoms of infection, no pulmonary symptoms of infection. Requested respiratory viral panel. Requested UA. Per discussion with nursing obtain bladder scan, straight cath if needed. Requested blood culture. Discussed with IR, making arrangements for LP. Requesting fluid analysis, Gram stain and bacterial and fungal cultures. Glucose. Adenosine deaminase. Droplet isolation for now until lumbar puncture without gram-negative diplococci. Admission to intensive care unit, continue to monitor vitals, so far has been protecting his airway. Monitor for risk of respiratory failure. Reassess CK for rhabdomyolysis. Monitor on telemetry due to risk of arrhythmia with amphetamine intoxication. Complete troponin EKG series with risk of cardiac ischemia. Will need to obtain history once he is able to provide it, does have a history of depression and suicidal ideation in the past, this will need to be further excluded once he is able to communicate. Attempted to call his home number, without answer. 08/17/24 Viral panel negative. LP done yesterday to r/o meningitis. will follow up on studies. Continue fluids and iv vancomycin and meropenem for now. Hold precedex drip. hemodynamically stable. will continue to monitor in ICU (2) Amphetamine intoxication: As above. (3) Methamphetamine use disorder, severe: Once he is able to communicate, consider case management consultation for rehabilitation options. (4) Acute kidney injury: Mild CIELO, BUN 24, creatinine 1.2. Received fluid challenge. Reassess renal parameters. Monitor intake and output. Every 4 hour bladder scan, straight cath as needed. Obtain UA. Without obstructive uropathy on CT. (5) Rhabdomyolysis: Mild rhabdomyolysis, CK4 479. Repeat CK level with amphetamine intoxication. CK trending down to 418. (6) Biliary sludge: Incidentally noted on CT. Without abdominal pain/right upper quadrant tenderness on palpation. Reviewed CMP, unremarkable liver parameters. Follow-up liver parameters. Possibly mild cholestasis secondary to dehydration. Receiving IV fluid. Reassess CMP. Will benefit from outpatient follow-up. Plan Smoking: Nicotine replacement as needed. MDD: Previously on aripiprazole, bupropion back in October 2023 for per review of psychiatry note, unclear if has been taking medications. 08/18/24 AMS resolved, He is AAOx4, eating well and tolerating po. AMS likely drug induced. Does not have insurance and is homeless. Plan to discharge him today but concerned person not available at crisis center. need to follow up with SW in am for discharge planning. Will transfer to [facility] for further care. PDMP PDMP Reviewed: Not Reviewed Attestations Medical Necessity Statement*: anticipating discharge in am. Time Spent in Patient Care: 15minutes Coding Level of Care Code Acute Code for [facility] Fwd Diagnoses Acute encephalopathy G93.40 Amphetamine intoxication F15.929 Methamphetamine use disorder, severe F15.20 Acute kidney injury N17.9 Rhabdomyolysis M62.82 Biliary sludge K83.8 Time Spent (min) 15
--- NOTE | 2024-08-18 13:51 | NUR.SHIFT ---
alert and oriented ambulated in room no distress report called and transfer to 2nd floor
[2024-08-18] MEDS: enoxaparin 40 mg/0.4 mL Syringe SUBCUT (14:33)
[2024-08-18] MEDS: vancomycin 1,750 MG/350 ML PIGGYBACK 17 MG IV (17:38)
[2024-08-19 03:46] VITALS: BP 121/72; PULSE 57; RESP 16; TEMP 36.5; O2SAT 95
[2024-08-19] MEDS: vancomycin 1,750 MG/350 ML PIGGYBACK 17 MG IV (05:40)
[2024-08-19 07:20] VITALS: BP 130/83; PULSE 53; RESP 18; TEMP 36.5; O2SAT 93
[2024-08-19 11:08] VITALS: BP 108/65; PULSE 71; RESP 18; TEMP 36.5; O2SAT 97
--- NOTE | 2024-08-19 11:12 | PM.DCS ---
Discharge Providers Date of Admission: 08/16/24 14:21 Date of Discharge: August 19, 2024 Attending Provider at Admission: Oniel Nath Attending Provider at Discharge: Nae Meredith MD Diagnoses at Discharge Discharge Diagnosis (1) Acute encephalopathy: Status: Acute (2) Amphetamine intoxication: Status: Acute (3) Methamphetamine use disorder, severe: Status: Acute (4) Acute kidney injury: Status: Acute (5) Rhabdomyolysis: Status: Acute (6) Biliary sludge: Status: Acute Reason for Visit Reason for Visit: possible drug use Brief History: Mr. Salinas was encountered in the hospital following a referral from the ER. The patient was found confused, not responding appropriately on a bench in town. In the ER not providing history, able to wake up enough to mumble his name, not answering other questions. During the encounter, he was briefly awake but remained largely non-responsive and did not follow directions. He demonstrated intermittent jerking/dropping movements in his hands consistent with asterixis. The provider inquired about headache, pain, or any recollection of earlier events, but the patient was unable to provide further details. Hospital Course Hospital Course Assessment and plan (1) Acute encephalopathy: Encephalopathy, possible acute toxic encephalopathy suspected secondary to amphetamine use, with asterixis, lethargy, confusion. Unable to answer questions. Without background history, history obtained from ER staff. Reviewed vitals, CBC, ABG, CMP, CK, troponin, EKG, lipase, UDS, requested HIV, hepatitis panel, reviewed chest x-ray, head CT, CT chest abdomen pelvis, ER provider note, discussed with ER provider. On presentation without fever, tachycardia, tachypnea, leukocytosis, with normal lactic acid, mild CIELO, creatinine to 1.2, BUN 24, mild dehydration. Naloxone reversal was attempted, but without response. UDS positive for amphetamine. Past history of amphetamine use disorder. Currently with noted mild rhabdomyolysis. Troponin without suggestion of cardiac ischemia, EKG unremarkable on my interpretation, pending official read. Reviewed past psychiatric medications, unclear that he is taking any of them, no refill since October 2023. Later in the afternoon on review of vitals again, noted febrile up to 101 Fahrenheit. Lethargic, answering a few brief answers, but not waking up sufficiently, not following directions. Discussed with nursing, without obvious source of infection. CT angiogram without sign of PE, no integumentary, GI symptoms of infection, no pulmonary symptoms of infection. Requested respiratory viral panel. Requested UA. Per discussion with nursing obtain bladder scan, straight cath if needed. Requested blood culture. Discussed with IR, making arrangements for LP. Requesting fluid analysis, Gram stain and bacterial and fungal cultures. Glucose. Adenosine deaminase. Droplet isolation for now until lumbar puncture without gram-negative diplococci. Admission to intensive care unit, continue to monitor vitals, so far has been protecting his airway. Monitor for risk of respiratory failure. Reassess CK for rhabdomyolysis. Monitor on telemetry due to risk of arrhythmia with amphetamine intoxication. Complete troponin EKG series with risk of cardiac ischemia. Will need to obtain history once he is able to provide it, does have a history of depression and suicidal ideation in the past, this will need to be further excluded once he is able to communicate. Attempted to call his home number, without answer. (2) Amphetamine intoxication: As above. (3) Methamphetamine use disorder, severe: Once he is able to communicate, consider case management consultation for rehabilitation options. (4) Acute kidney injury: Mild CIELO, BUN 24, creatinine 1.2. Received fluid challenge. Reassess renal parameters. Monitor intake and output. Every 4 hour bladder scan, straight cath as needed. Obtain UA. Without obstructive uropathy on CT. (5) Rhabdomyolysis: Mild rhabdomyolysis, CK4 179. Repeat CK level with amphetamine intoxication. (6) Biliary sludge: Incidentally noted on CT. Without abdominal pain/right upper quadrant tenderness on palpation. Reviewed CMP, unremarkable liver parameters. Follow-up liver parameters. Possibly mild cholestasis secondary to dehydration. Receiving IV fluid. Reassess CMP. Will benefit from outpatient follow-up. Was informed by bedside nurse that patient woke up suddenly. He has been alert awake oriented x 4, altered mental status resolved. On further questioning patient mentioned that he was at a friend's libertarian, drank alcohol and did use amphetamine. Does not remember the quantity. He is homeless with no insurance. Does not remember being on a bench in the park. Denies any complaint of chest pain, shortness of breath, palpitations, dizziness, nausea/vomiting. He does remember weekly having discomfort during LP yesterday. AMS resolved. AMS likely drug induced, less likely infectious.He has been AAOx4, hemodynamically stable, eating and tolerating well. He is homeless, will go to crisis center. Has to follow up with them for enrollment with medicaid. No medications needed at this time. Physical Exam Const: ORIENTATION/CONSCIOUSNESS: Yes awake, Yes oriented to person, Yes oriented to place and Yes oriented to time HENMT: COMMON NORMALS: oropharynx normal Eye: OTHER: Equal, reactive to light, 3 mm in size. Neck/C-Spine: COMMON NORMALS: no JVD Resp: COMMON NORMALS: normal respiratory effort and clear to auscultation bilaterally AUSCULTATION: clear to auscultation bilaterally Cardio: COMMON NORMALS: no JVD, regular rhythm, S1 normal heart sound present, S2 normal heart sound present and No murmurs present (Cardio) RHYTHM: regular rhythm HEART SOUNDS: S1 normal heart sound present and S2 normal heart sound present GI: COMMON NORMALS: Normal to inspection, nondistended, normoactive bowel sounds present, Soft to palpation and non-tender PALPATION: Yes Soft to palpation Extremity: COMMON NORMALS: no joint enlargement and no pedal edema OTHER: 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 Skin: COMMON NORMALS: no rashes or lesions noted GENERAL SKIN EXAM: no rashes or lesions noted Urinary Catheter Management: Gray: Cath Placed During This Visit: yes, but has since been removed by the nurse Reason for Continuing Indwelling Catheter: Decision to DC Catheter Urinary Catheter Date of Insertion: 08/17/24 Urinary Catheter Time of Insertion: 02:00 Date Urinary Catheter Removed: 08/17/24 Time Urinary Catheter Discontinued: 17:54 Discharge Data Studies Completed and Pending Completed Studies During Hospitalization Category Date Time Status CT head wo con* [id number] Stat Cat Scan 08/16/24 08:[address] abdomen pelvis [CT Angio Chest + Abdomen Cat Scan 08/16/24 10:24 Completed Pelvis w/ contrast; 11212 + 03524] Stat [place] guided [place]umbp[place] ther [id number] Routine Exams 08/16/24 15:32 Completed XR chest 1V portable [id number] Stat Exams 08/16/24 08:07 Completed Pending at discharge Category Date Time Status Adenosine CSF [Adenosine Deaminase CSF] Routine Lab 08/16/24 17:34 Received Blood Culture Stat Lab 08/16/24 15:53 Results CSF Culture & Gram Stain Routine Lab 08/16/24 17:34 Results Fungal Culture not HR/SK/BL Routine Lab 08/16/24 17:34 Received Lymes Disease Antibodies CSF Routine Lab 08/16/24 17:34 Received Vancomycin Trough Timed Lab 08/19/24 17:30 Ordered Radiology Impressions Chest X-Ray 08/16/24 08:07 Impression: Hyperinflation and atherosclerosis. Head CT 08/16/24 08:47 IMPRESSION: 1. No acute intracranial hemorrhage or edema. 2. Stable CT head since 01/04/2021. Chest/Abdomen/Pelvis CT 08/16/24 10:24 IMPRESSION: 1. Study is compromised by motion artifact. 2. No central pulmonary embolism. Beyond the lobar branches opacification because limited by motion. 3. No RIGHT heart strain. 4. No pneumonia or pulmonary laceration. 5. No acute findings within the abdomen or pelvis. 6. No mesenteric injury or ascites. 7. No GI tract obstruction. 8. Possible stones or sludge within the gallbladder. No evidence for acute cholecystitis. Laboratory Results WBC 5.06 10^3/uL (3.29-11.43) 08/18/24 04:27 RBC 3.66 10^6/uL (3.85-5.65) L 08/18/24 04:27 Hgb 11.00 g/dL (11.27-16.99) L 08/18/24 04:27 Hct 35.5 % (37-53) L 08/18/24 04:27 MCV 97.0 fl (82-101) 08/18/24 04:27 MCH 30.1 pg (27-33) 08/18/24 04:27 MCHC 31.0 g/dL (30-55) 08/18/24 04:27 RDW 12.7 % (12.1-15.1) 08/18/24 04:27 Plt Count 161 10^3/cmm (157-399) 08/18/24 04:27 MPV 9.9 fL (7.4-10.4) 08/18/24 04:27 Neut % (Auto) 69.5 % 08/18/24 04:27 Lymph % (Auto) 20.8 % 08/18/24 04:27 [place] % (Auto) 7.1 % 08/18/24 04:27 Eos % (Auto) 1.4 % 08/18/24 04: Baso % (Auto) 0.8 % 08/18/24 04: Neut # (Auto) 3.52 10^3/uL (1.8-7.7) 08/18/24 04:27 Lymph # (Auto) 1.1 10^3/uL (0.8-4.8) 08/18/24 04: [place] # (Auto) 0.4 10^3/uL (0.2-0.9) 08/18/24 04:27 Eos # (Auto) 0.1 10^3/uL (0.0-0.8) 08/18/24 04: Baso # (Auto) 0.0 10^3/uL (0.0-0.1) 08/18/24 04: Nucleated RBC % (auto) 0 % 08/18/24 04: Nucleated RBCs # 0.0 /100WBC 08/18/24 04: PT 13.50 SECONDS (12.1-14.9) 08/16/24 15:50 INR 0.96 (0.8-1.2) 08/16/24 15:50 Specimen Type Arterial 08/16/24 08:57 Sample Site Brachial, left 08/16/24 08:57 ABG pH 7.37 (7.35-7.45) 08/16/24 08:57 ABG pCO2 40.4 mmHg (35-45) 08/16/24 08:57 ABG pO2 74.4 mmHg (80.0-100.0) L 08/16/24 08:57 ABG PO2/FiO2 Ratio 354 08/16/24 08:57 ABG HCO3 23.2 mmol/L (22-26) 08/16/24 08:57 ABG O2 Saturation 95.0 08/16/24 08:57 ABG Base Excess -2.0 mmol/L (-2.0-2.0) 08/16/24 08:57 Bob Test Pos 08/16/24 08:57 A-a O2 Gradient 3.1 mmHg (5-10) L 08/16/24 08:57 Hematocrit 40.9 % (42-52) L 08/16/24 08:57 Hgb O2 Saturation 93.0 % (95-100) L 08/16/24 08:57 Carboxyhemoglobin 0.8 %THgb (0.4-20.1) 08/16/24 08:57 Methemoglobin 1.3 % (0.4-1.5) 08/16/24 08:57 Total Hemoglobin 13.4 g/dL (14-18) L 08/16/24 08:57 Sodium 141.0 mmol/L (131-143) 08/16/24 08:57 Potassium 4.5 mmol/L (3.5-5.0) 08/16/24 08:57 Glucose 143.0 mg/dL (70-115) H 08/16/24 08:57 Ionized Calcium 1.2 mmol/L (1.1-1.4) 08/16/24 08:57 O2 Delivery Device Room air 08/16/24 08:57 FiO2 21.0 % 08/16/24 08:57 Needle Valve Operator ID [place] 08/16/24 08:57 Sodium 137 mmol/L (136-145) 08/18/24 04:27 Sodium 138 mmol/L (136-145) 08/18/24 04:27 Potassium 3.8 mmol/L (3.5-5.1) 08/18/24 04:27 Potassium 3.8 mmol/L (3.5-5.1) 08/18/24 04:27 Chloride 106 mmol/L (98-107) 08/18/24 04:27 Chloride 107 mmol/L (98-107) 08/18/24 04:27 Carbon Dioxide 20 mmol/L (22-29) L 08/18/24 04:27 Carbon Dioxide 20 mmol/L (22-29) L 08/18/24 04:27 Anion Gap 13.8 (5-19) 08/18/24 04:27 Anion Gap 15.8 (5-19) 08/18/24 04:27 BUN 12 mg/dL (6-20) 08/18/24 04:27 BUN 12 mg/dL (6-20) 08/18/24 04:27 Creatinine 0.8 mg/dL (0.7-1.2) 08/18/24 04:27 Creatinine 0.8 mg/dL (0.7-1.2) 08/18/24 04:27 GFR Calculation 103.6 mL/min (90-130) 08/18/24 04:27 GFR Calculation 103.6 mL/min (90-130) 08/18/24 04:27 Glucose 127 mg/dL (65-115) H 08/18/24 04:27 Glucose 129 mg/dL (65-115) H 08/18/24 04:27 POC Glucose 100 mg/dL (70-110) 08/17/24 08:15 Calculated Osmolality 285 mOsm/kg (285-295) 08/18/24 04:27 Calculated Osmolality 287 mOsm/kg (285-295) 08/18/24 04:27 Lactic Acid 1.6 mmol/L (0.5-2.2) 08/16/24 08:33 Calcium 8.1 mg/dL (8.5-10.5) L 08/18/24 04:27 Calcium 8.3 mg/dL (8.5-10.5) L 08/18/24 04:27 Total Bilirubin 0.3 mg/dL (0.15-1.2) 08/18/24 04:27 AST 15 U/L (0-40) 08/18/24 04:27 ALT 11 U/L (0-41) 08/18/24 04:27 Alkaline Phosphatase 50 U/L (40-130) 08/18/24 04:27 Ammonia 45 umol/L (16-60) 08/16/24 10:59 Creatine Kinase 206 U/L (39-308) 08/18/24 04:27 Troponin T Baseline 10 ng/L (0-15) 08/16/24 08:33 Troponin T 120 Minute 9.18 ng/L (0-15) 08/16/24 10:59 Delta Troponin T -0.82 ABS# (0-10) L 08/16/24 10:59 Troponin T Hi Sens 6Hr 11.19 ng/L (0-15) 08/16/24 14:23 Troponin T Hi Sens 6Hr Delta 1.19 ng/L (0-12) 08/16/24 14:23 Total Protein 5.5 g/dL (6.6-8.7) L 08/18/24 04:27 Albumin 3.4 g/dL (3.5-5.2) L 08/18/24 04:27 Globulin 2.1 g/dL (1.3-4.6) 08/18/24 04:27 Lipase 22 U/L (13-60) 08/16/24 08:33 Urine Color Dark yellow (Yellow) A 08/16/24 09:20 Urine Appearance Turbid (CLEAR) A 08/16/24 09:20 Urine pH 5.5 (5-7) 08/16/24 09:20 Ur Specific [place] 1.037 (1.005-1.030) H 08/16/24 09:20 Urine Protein 2+ (Negative) A 08/16/24 09:20 Urine Glucose (UA) Negative (Normal) 08/16/24 09:20 Urine Ketones Trace (Negative) 08/16/24 09:20 Urine Blood Negative (Negative) 08/16/24 09:20 Urine Nitrate Negative (Negative) 08/16/24 09:20 Urine Bilirubin Negative (Negative) 08/16/24 09:20 Urine Urobilinogen 1.0 mg/dL (Negative) 08/16/24 09:20 Ur Leukocyte Esterase Negative (Negative) 08/16/24 09:20 Urine RBC 0-2 /hpf (0-2) 08/16/24 09:20 Urine WBC 0-5 /hpf (0-5) 08/16/24 09:20 Ur Squamous Epith Cells 0-5 /hpf (0-5) 08/16/24 09:20 Amorphous Sediment 3+ /hpf 08/16/24 09:20 Urine Bacteria None seen /hpf (NONE) 08/16/24 09:20 Hyaline Casts 3.30 /lpf 08/16/24 09:20 CSF Appearance Clear (CLEAR) 08/16/24 17:34 CSF Color Colorless (COLORLESS) 08/16/24 17:34 CSF WBC 2 /uL (0-5) 08/16/24 17:34 CSF RBC 0 10^3/uL (0-0) 08/16/24 17: CSF Mononuclear # Auto 0.002 10^3/uL (50-90) L 08/16/24 17:34 CSF Mononuclear WBCs % 100 % (50-90) H 08/16/24 17:34 CSF Polynuclear WBCs # 0.000 10^3/uL (0-10) 08/16/24 17: CSF Polynuclear WBCs % 0 % (0-10) 08/16/24 17:34 CSF Glucose 80 mg/dL (40-70) H 08/16/24 17:34 CSF Total Protein 101 mg/dL (15-45) H 08/16/24 17:34 Salicylates < 0.3 mg/dL (3-10) L 08/16/24 08:33 Urine Opiates Screen Negative ng/mL (Negative) 08/16/24 09:20 Acetaminophen < 5.0 ug/mL (10-30) L 08/16/24 08:33 Ur Barbiturates Screen Negative ng/mL (Negative) 08/16/24 09:20 Ur Phencyclidine Scrn Negative ng/mL (Negative) 08/16/24 09:20 Ur Amphetamines Screen Positive ng/mL (Negative) H 08/16/24 09:20 U Benzodiazepines Scrn Negative ng/mL (Negative) 08/16/24 09:20 Urine Cocaine Screen Negative ng/mL (Negative) 08/16/24 09:20 U Marijuana (THC) Screen Negative ng/mL (Negative) 08/16/24 09:20 Ethyl Alcohol < 10 mg/dL (0-10) 08/16/24 08:33 Serum Ketones Negative (Negative) 08/16/24 08:33 Adenovirus (PCR) Not detected (NOT DETECT) 08/16/24 15:33 C. pneumoniae DNA (PCR) Not detected (NOT DETECT) 08/16/24 15: Coronavirus 229E (PCR) Not detected (NOT DETECT) 08/16/24 15:33 Hepatitis A IgM Ab Non-reactive (Nonreactive) 08/16/24: Hep Bs Antigen Non-reactive (Nonreactive) 08/16/24: Hep B Core IgM Ab Non-reactive (Nonreactive) 08/16/24 08:33 Hepatitis C Antibody Non-reactive (Nonreactive) 08/16/24 08:33 HIV 1&2 Ab & HIV 1 Ag Non-reactive (Non-Reactiv) 08/16/24 08: HIV 1&2 Antibody Non-reactive (Non-Reactiv) 08/16/24 08: Human Metapneumovir PCR Not detected (NOT DETECT) 08/16/24 15: Influenza A (H1) PCR Not detected (NOT DETECT) 08/16/24 15: Influ A (H1/09) PCR Not detected (NOT DETECT) 08/16/24 15:33 Influenza A (H3) PCR Not detected (NOT DETECT) 08/16/24 15:33 Influenza Type A (PCR) Not detected (NOT DETECT) 08/16/24 15:33 Influenza Type B (PCR) Not detected (NOT DETECT) 08/16/24 15:33 M. pneumoniae (PCR) Not detected (NOT DETECT) 08/16/24 15:33 Parainfluenza 1 (PCR) Not detected (NOT DETECT) 08/16/24 15:33 Parainfluenza 2 (PCR) Not detected (NOT DETECT) 08/16/24 15:33 Parainfluenza 3 (PCR) Not detected (NOT DETECT) 08/16/24 15:33 Parainfluenza 4 (PCR) Not detected (NOT DETECT) 08/16/24 15:33 RSV Type A (PCR) Not detected (NOT DETECT) 08/16/24 15:33 RSV Type B (PCR) Not detected (NOT DETECT) 08/16/24 15:33 Entero/Rhino (PCR) Not detected (NOT DETECT) 08/16/24 15:33 SARS-CoV-2 (PCR) Not detected (NOT DETECT) 08/16/24 15:33 Vitals Last Vital Signs Temp 97.7 F 08/19/24 11:08 Pulse 71 08/19/24 11:08 Resp 18 08/19/24 11:08 BP 108/65 08/19/24 11:08 Pulse Ox 97 08/19/24 11:08 O2 Del Method Room Air 08/19/24 11:08 O2 Flow Rate 2 08/16/24 10:00 Discharge Plan Discharge Patient Disposition: Home Condition: Stable Prescriptions: No Action No Known Home Medications Discharge Orders: Discharge Order (Routine); Ordered 08/19/24 Ordered By: Nae Meredith Discharge Diet: Regular Discharge Activity: Increase activity as tolerated Patient Instructions: Altered Mental Status (ED), Opioid Safety Discharge Attestations Time Spent in Discharge Care*: less than 30 min Quality Metrics Clinical Quality Measures [ No reported AMI, CVA or VTE this stay] Coding Level of Care Code Acute Code for [facility] Fwd Diagnoses Acute encephalopathy G93.40 Amphetamine intoxication F15.929 Methamphetamine use disorder, severe F15.20 Acute kidney injury N17.9 Rhabdomyolysis M62.82 Biliary sludge K83.8 Time Spent (min) 15
[2024-08-19 12:43] VITALS: BP 108/65; PULSE 71; RESP 18; TEMP 36.5; O2SAT 97
--- NOTE | 2024-08-19 13:09 | PC.NURSE ---
Discussed discharge with patient. Went over follow up appointment. No medications for patient to go home with. Patient acknowledged instructions and verbalized understanding.
[2024-08-21 12:25] LABS: Adenosine Deaminase CSF 0.6 U/L (<7.0)
[2024-08-23 22:40] LABS: Lyme Disease AB (IGG),IBL NO BANDS DETECTED; Lyme Disease AB (IGM), IBL NO BANDS DETECTED
== END 2024-08-19 13:12 | disposition home or self-care (01) | DRG 896 ==
LOC: ER 09:35 → ICU 15:07 → MEDSURG 08-18 13:58
PROVIDERS: Admitting Provider Internal Medicine; Emergency Provider Family Medicine; Visit Provider Internal Medicine
DX: F15.229 Other stimulant dependence with intoxication, unspecified (principal); G92.8 Other toxic encephalopathy; N17.9 Acute kidney failure, unspecified; M62.82 Rhabdomyolysis; Z59.00 Homelessness unspecified; K83.8 Other specified diseases of biliary tract; R27.8 Other lack of coordination; F17.210 Nicotine dependence, cigarettes, uncomplicated; F32.9 Major depressive disorder, single episode, unspecified
CPT/HCPCS: 36415; 36416; 36600; 51701; 51702; 51798; 62329; 70450; 71045; 71275; 74177; 80048; 80051; 80053; 80074; 80306; 80307; 80503; 81001; 82009; 82140; 82330; 82550; 82805; 82945; 82962; 83605; 83690; 84157; 84311; 84484; 85025; 85610; 86617; 87040; 87070; 87075; 87102; 87205; 87206; 87486; 87581; 87633; 87806; 89050; 93005; 96372; 96374; 96376; 99285; J1630; J1650; J2060; J2185; J2310; J3370; J3372; J7042; J9999

== ENCOUNTER 2024-09-09 08:29 | Emergency (ER) | payer SELFPAY ==
--- NOTE | 2024-09-09 08:35 | XR_ITS ---
WS: [id number] Exam: XR chest 1V portable [id number] Date/Time of Exam: 09/09/2024 9:02 AM Reason For Exam: chest pain Comparison 08/16/2024. Lungs are clear and fully expanded. Normal cardiomediastinal silhouette and regional bony elements. No pleural effusion. Soft tissue nodules superimpose the bilateral lung bases and are most likely nipple shadows. XR/XR chest 1V portable [id number] IMPRESSION: 1. Negative chest.
--- NOTE | 2024-09-09 08:35 | ECG_ITS ---
[facility] 2024-[facility]09 Pat Name: Fran Salinas Department: Room: Gender: Male Outside Rigger: : [id number] Requested By: Allan Pedraza Order Number: [id number] Shirley MD: Vickie Flaherty M.D. Measurements Intervals [place] Rate: 98 P: 57 NH: 154 QRS: -57 QRSD: 81 T: 57 QT: 318 QTc: 407 Interpretive Statements SINUS RHYTHM LEFT ANTERIOR FASCICULAR BLOCK [QRS AXIS <= -45, QR IN I, RS IN II] Compared to ECG 08/16/2024 11:44:50 Left anterior fascicular block now present Electronically Signed On 09-09-2024 15:03:39 CDT by Vickie Flaherty M.D. [email or web address]
[2024-09-09 08:39] VITALS: BP 125/97; PULSE 105; RESP 16; TEMP 36.6; O2SAT 99; BMI 27.2
--- NOTE | 2024-09-09 08:39 | ED_ITS ---
HPI - Chest Pain 2 General: Chief Complaint: Chest Pain Stated Complaint: sob, cp, arm weakness Time Seen by Provider: 09/09/24 08:35 History of Present Illness: 48-year-[facility] discomfort began yesterday. He is mildly diaphoretic. He has a history amphetamine abuse he denies any use in the last month since we last admitted him in mid July. He is awake and alert diaphoretic he is not understanding the negative aggravates or relieves his symptoms. He has no known history of any coronary artery disease in the past. Associated symptoms: Deny abdominal pain, dyspnea or fever(s) Related Data Home Medications ?Medication ?Instructions ?Recorded ?Confirmed acetaminophen 500 mg tablet 1,000 mg PO QID PRN Fever Or Pain 09/09/24 09/09/24 (Tylenol Extra Strength) ibuprofen 200 mg tablet (Advil) 800 mg PO Q6H PRN Feve r Or Pain 09/09/24 09/09/24 Previous Rx's ?Medication ?Instructions ?Recorded aspirin 81 mg tablet,delayed 81 mg PO DAILY #30 tabs 0 09/09/24 release Allergies Allergy/AdvReac Type Severity Reaction Status Date / Time lisinopril Allergy Severe swells up Verified 04/18/24 19:11 from it Penicillins Allergy Severe hives and Verified 04/18/24 19:11 feels like he is choking. Review of Systems 2 Const: Denies: fever(s) or chills Card: Denies: chest pain Resp: Denies: dyspnea GI: Denies: abdominal pain : Denies: dysuria, urinary frequency or urinary urgency Musc: Denies: neck pain or back pain Skin/Breast: Denies: rash PFS ED 2 PFSH: Medical History Biliary sludge Methamphetamine use disorder, severe Psychiatric care Amphetamine abuse Generalized anxiety disorder Nicotine dependence, cigarettes, uncomplicated Adderall use disorder, moderate, in sustained remission, in controlled environment, dependence Major depressive disorder, recurrent, moderate Surgical History History of ankle surgery H/O gastric sleeve History of hand surgery History of facial surgery Family History Father Dementia Stroke Myocardial infarction Mother Myocardial infarction Social History Smoking and tobacco/nicotine status: current every day tobacco/nicotine user Alcohol intake: current Alcohol intake frequency: holidays/special occasions only Alcohol type: hard liquor (rum a couple shots) Substance/Drug Use: former Date of last use: 15 days ago Physical Exam 2 Const: COMMON NORMALS: no acute distress GENERAL APPEARANCE: cooperative and comfortable ORIENTATION/CONSCIOUSNESS: Yes awake, Yes oriented to person, Yes oriented to place and Yes oriented to time HENMT: COMMON NORMALS: normocephalic, atraumatic and hearing grossly normal bilaterally HEAD & SCALP: normocephalic and atraumatic Resp: COMMON NORMALS: normal respiratory effort, No retractions, No use of accessory muscles and clear to auscultation bilaterally AUSCULTATION: clear to auscultation bilaterally Cardio: COMMON NORMALS: regular rate, regular rhythm and No murmurs present (Cardio) RATE: regular rate RHYTHM: regular rhythm GI: COMMON NORMALS: Soft to palpation and No hepatosplenomegaly present A USCULTATION: Yes normoactive bowel sounds PALPATION: Yes Soft to palpation, No Tenderness to palpation present (GI), No Guarding due to palpation present (GI) and Yes No hepatosplenomegaly present Extremity: COMMON NORMALS: normal to inspection, capillary refill normal, no clubbing, cyanosis or edema, no calf tenderness and no pedal edema Neuro: SENSORIUM/ORIENTATION: Yes oriented to person, Yes oriented to place and Yes oriented to time Skin: COMMON NORMALS: no rashes or lesions noted GENERAL SKIN EXAM: no rashes or lesions noted Course 2 Vital Signs: Vital signs: Vital Signs Temperature 97.9 F 09/09/24 08:39 Pulse Rate 64 09/09/24 11:13 Respiratory Rate 20 H 09/09/24 09:00 Blood Pressure 132/79 09/09/24 11:13 Pulse Oximetry 98 09/09/24 11:13 Oxygen Delivery Me thod Room Air 09/09/24 11:13 MDM - Chest Pain Medical Decision Making Cardiac enzymes and EKG did not show any definite acute coronary syndrome patient has not having any further symptoms will discharge patient home recommend take baby aspirin daily and set up for an outpatient Lexiscan sestamibi stress test return if he has further problems. Medical Records I reviewed the patient's medical records. Lab Data I reviewed the patient's lab results. 09/09/24 08:42 09/09/24 08:42 Radiology Impressions Chest X-Ray 09/09/24 08:35 IMPRESSION: 1. Negative chest. Laboratory Results WBC 5.94 10^3/uL (3.29-11.43) 09/09/24 08:42 RBC 5.16 10^6/uL (3.85-5.65) 09/09/24 08:42 Hgb 15.50 g/dL (11.27-16.99) 09/09/24 08:42 Hct 46.2 % (37-53) 09/09/24 08:42 MCV 89.5 fl (82-101) 09/09/24 08:42 MCH 30.0 pg (27-33) 09/09/24 08:42 MCHC 33.5 g/dL (30-55) 09/09/24 08:42 RDW 12.9 % (12.1-15.1) 09/09/24 08:42 Plt Count 235 10^3/cmm (157-399) 09/09/24 08:42 MPV 9.8 fL (7.4-10.4) 09/09/24 08:42 Neut % (Auto) 55.7 % 09/09/24 08:42 Lymph % (Auto) 32.7 % 09/09/24 08:42 Hood % (Auto) 8.2 % 09/09/24 08:42 Eos % (Auto) 2.4 % 09/09/24 08:42 Baso % (Auto) 0.7 % 09/09/24 08:42 Neut # (Auto) 3.31 10^3/uL (1.8-7.7) 09/09/24 08:42 Lymph # (Auto) 1.9 10^3/uL (0.8-4.8) 09/09/24 08:42 Hood # (Auto) 0.5 10^3/uL (0.2-0.9) 09/09/24 08:42 Eos # (Auto) 0.1 10^3/uL (0.0-0.8) 09/09/24 08:42 Baso # (Auto) 0.0 10^3/uL (0.0-0.1) 09/09/24 08:42 Nucleated RBC % (auto) 0 % 09/09/24 08:42 Nucleated RBCs # 0.0 /100WBC 09/09/24 08:42 Specimen Type Arterial 09/09/24 09:10 Sample Site Brachial, right 09/09/24 09:10 ABG pH 7.44 (7.35-7.45) 09/09/24 09:10 ABG pCO2 34.4 mmHg (35-45) L 09/09/24 09:10 ABG pO2 88.0 mmHg (80.0-100.0) 09/09/24 09:10 ABG PO2/FiO2 Ratio 419 09/09/24 09:10 ABG HCO3 23.3 mmol/L (22-26) 09/09/24 09:10 ABG O2 Saturation 96.4 09/09/24 09:10 ABG Base Excess -0.3 mmol/L (-2.0-2.0) 09/09/24 09:10 Bob Test Pos 09/09/24 09:10 A-a O2 Gradient 2.3 mmHg (5-10) L 09/09/24 09:10 Hematocrit 47.6 % (42-52) 09/09/24 09:10 Hgb O2 Saturation 95.7 % (95-100) 09/09/24 09:10 Carboxyhemoglobin 0.5 %THgb (0.4-20.1) 09/09/24 09:10 Methemoglobin 0.1 % (0.4-1.5) L 09/09/24 09:10 Total Hemoglobin 15.5 g/dL (14-18) 09/09/24 09:10 Sodium 139.0 mmol/L (131-143) 09/09/24 09:10 Potassium 4.7 mmol/L (3.5-5.0) 09/09/24 09:10 Glucose 108.0 mg/dL (70-115) 09/09/24 09:10 Ionized Calcium 1.2 mmol/L (1.1-1.4) 09/09/24 09:10 O2 Delivery Device Room air 09/09/24 09:10 FiO2 21.0 % 09/09/24 09:10 Braided Band Assembler ID Venus 09/09/24 09:10 Sodium 140 mmol/L (136-145) 09/09/24 08:42 Potassium 4.6 mmol/L (3.5-5.1) 09/09/24 08:42 Chloride 104 mmol/L (98-107) 09/09/24 08:42 Carbon Dioxide 19 mmol/L (22-29) L 09/09/24 08:42 Anion Gap 21.6 (5-19) H 09/09/24 08:42 BUN 21 mg/dL (6-20) H 09/09/24 08:42 Creatinine 1.0 mg/dL (0.7-1.2) 09/09/24 08:42 GFR Calculation 80.1 mL/min (90-130) L 09/09/24 08:42 Glucose 97 mg/dL (65-115) 09/09/24 08:42 Calculated Osmolality 293 mOsm/kg (285-295) 09/09/24 08:42 Calcium 9.3 mg/dL (8.5-10.5) 09/09/24 08:42 Total Bilirubin 0.4 mg/dL (0.15-1.2) 09/09/24 08:42 AST 21 U/L (0-40) 09/09/24 08:42 ALT 18 U/L (0-41) 09/09/24 08:42 Alkaline Phosphatase 59 U/L (40-130) 09/09/24 08:42 Troponin T Baseline 28 ng/L (0-15) H 09/09/24 08:42 Troponin T 120 Minute 21.27 ng/L (0-15) H 09/09/24 10:42 Delta Troponin T -6.73 ABS# (0-10) L 09/09/24 10:42 Total Protein 7.7 g/dL (6.6-8.7) 09/09/24 08:42 Albumin 4.6 g/dL (3.5-5.2) 09/09/24 08:42 Globulin 3.1 g/dL (1.3-4.6) 09/09/24 08:42 All radiology interpretation(s) finalized by discharge EKG Data EKG 1: Computer generated interpretation: EKG September 09, 2024 0833 sinus rhythm [address] changes noted OR interval 154. No acute changes from August 16, 2024 EKG 2: Computer generated interpretation: EKG September 09, 2024 and 53 normal sinus rhythm rate of 77 mild Kieran left axis deviation no acute EKG changes are noted no ST elevation unchanged from August 16, 2024 OR interval 161 Discharge Plan Discharge Patient Disposition: Home Clinical Impression: Atypical chest pain Condition: Stable Prescriptions: New aspirin 81 mg tablet,delayed release (DR/EC) 81 mg PO DAILY Qty: 30 0RF No Action acetaminophen [Tylenol Extra Strength] 500 mg Tablet 1,000 mg PO QID PRN (Reason: Fever Or Pain) ibuprofen [Advil] 200 mg Tablet 800 mg PO Q6H PRN (Reason: Fever Or Pain) Discharge Orders: Discharge ED (Routine); Ordered 09/09/24 Ordered By: Allan Keller Discharge Diet: Usual diet Discharge Activity: Limit activity as instructed Patient Instructions: Opioid Safety, Pain Management Activity Restrictions/Additional Instructions: Thank you for choosing [facility] for your healthcare needs today. It is very important that you follow up as instructed or that you return to the Emergency Department should you have concerns or if your condition changes or worsens in any way. You are seen emergency room complaint chest pain your EKGs and cardiac enzymes did not show any acute changes. Will discharge home recommend take baby aspirin daily I will set you up for an outpatient stress test Print Language: Bangladeshi Coding Level of Care Code ED Instrumentation Engineer for Nadja Pina
[2024-09-09 08:49] VITALS: BP 125/97; PULSE 92; RESP 14; O2SAT 95
[2024-09-09 08:50] LABS: Basophils % 0.7 %; Eosinophils # 0.1 10^3/uL (0.0-0.8); Eosinophils % 2.4 %; Hematocrit 46.2 % (37-53); Lymphocytes # 1.9 10^3/uL (0.8-4.8); Lymphocytes % 32.7 %; Mean Corpuscular HGB Conc 33.5 g/dL (30-55); Mean Corpuscular Volume 89.5 fl (82-101); Mean Platelet Volume 9.8 fL (7.4-10.4); Monocytes # 0.5 10^3/uL (0.2-0.9); Monocytes % 8.2 %; Neutrophils # 3.31 10^3/uL (1.8-7.7); Neutrophils % 55.7 %; Nucleated Red Blood Cells % 0 %; Platelet Count 235 10^3/cmm (157-399); Red Blood Count 5.16 10^6/uL (3.85-5.65); Red Cell Distribution Width 12.9 % (12.1-15.1); White Blood Count 5.94 10^3/uL (3.29-11.43)
[2024-09-09] MEDS: aspirin 81 mg Chew Tablet 324 MG PO (08:58)
[2024-09-09 09:00] VITALS: BP 130/87; PULSE 89; RESP 20; O2SAT 96
[2024-09-09 09:12] LABS: Troponin(5th) Baseline 28 ng/L (0-15)
[2024-09-09 09:16] LABS: Alanine Aminotransferase 18 U/L (0-41); Albumin Level 4.6 g/dL (3.5-5.2); Alkaline Phosphatase 59 U/L (40-130); Anion Gap 21.6 (5-19); Aspartate Amino Transferase 21 U/L (0-40); Blood Urea Nitrogen 21 mg/dL (6-20); Calcium 9.3 mg/dL (8.5-10.5); Carbon Dioxide 19 mmol/L (22-29); Chloride 104 mmol/L (98-107); Creatinine Clr Calc Pharmacy 101.1029; Globulin 3.1 g/dL (1.3-4.6); Glomerular Filtration Rate 80.1 mL/min (90-130); Glucose 97 mg/dL (65-115); Osmolality Calculated 293 mOsm/kg (285-295); Potassium 4.6 mmol/L (3.5-5.1); Sodium 140 mmol/L (136-145); Total Bilirubin 0.4 mg/dL (0.15-1.2); Total Protein 7.7 g/dL (6.6-8.7)
[2024-09-09 09:23] LABS: ABG PCO2 34.4 mmHg (35-45); ABG PH Result 7.44 (7.35-7.45); Alveolar-Arterial Oxygen Gradi 2.3 mmHg (5-10); Arterial Blood Gas Hematocrit 47.6 % (42-52); Base Excess ABG -0.3 mmol/L (-2.0-2.0); Blood Gas Allen Test Pos; Blood Gas Operator Identificat MONRO; Blood Gas Sample Site Brachial, right; Blood Gas Sample Type Arterial; Carboxyhemoglobin 0.5 %THgb (0.4-20.1); HCO3 ABG 23.3 mmol/L (22-26); HGB O2 Sat 95.7 % (95-100); Ionized Calcium Level - ABG 1.2 mmol/L (1.1-1.4); Methemoglobin 0.1 % (0.4-1.5); Oxygen Device ROOM AIR; Oxygen Saturation ABG 96.4; PO2 FiO2 Ratio Arterial Blood 419; Potassium Level - ABG 4.7 mmol/L (3.5-5.0); Total Hemoglobin 15.5 g/dL (14-18)
--- NOTE | 2024-09-09 10:53 | ECG_ITS ---
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 Measurements Intervals [place] Rate: 77 P: 47 CT: 161 QRS: -37 QRSD: 97 T: 38 QT: 362 QTc: 412 Interpretive Statements SINUS RHYTHM LEFT AXIS DEVIATION [QRS AXIS < -30] S1-S2-S3 PATTERN, CONSISTENT WITH PULMONARY DISEASE, RVH, OR NORMAL VARIANT PATTERN CONSISTENT WITH PULMONARY DISEASE Compared to ECG 09/09/2024 08:33:34 Left-axis deviation now present Right ventricular hypertrophy now present Left anterior fascicular block no longer present Electronically Signed On 09-09-2024 15:18:30 CDT by Vickie Flaherty M.D. [id number]
[2024-09-09 11:13] VITALS: BP 132/79; PULSE 64; O2SAT 98
[2024-09-09 11:13] LABS: Troponin 5 2HR 21.27 ng/L (0-15)
[2024-09-09 11:16] LABS: Troponin 5 2HR Delta -6.73 ABS# (0-10)
[2024-09-09 12:47] VITALS: BP 140/89; PULSE 90; RESP 20; O2SAT 99
== END 2024-09-09 12:51 | disposition home or self-care (01) ==
PROVIDERS: Emergency Provider Family Medicine
DX: R07.89 Other chest pain (principal); Z72.0 Tobacco use
CPT/HCPCS: 36415; 36600; 71045; 80051; 80053; 82330; 82805; 84484; 85025; 93005; 99285; J9999

== ENCOUNTER 2024-10-30 11:48 | Outpatient (CLI) | payer BC, MEDICAID, SELFPAY ==
--- NOTE | 2024-10-30 11:53 | ECG_ITS ---
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 Interpretive Statements EXERCISE STRESS TEST EXERCISE DATA: The patient was exercised by Alberto protocol. Baseline heart rate was 77 beats per minute. Baseline blood pressure was 144/89 millimeters of mercury. Maximal predicted heart rate was 173 beats per minute. Maximum heart rate achieved was 171 which was 98% of the maximum predicted heart rate. Maximum blood pressure was 166/55 millimeters of mercury. Total exercise time was 6 minutes and 23 seconds. Maximum METs achieved was 10.2. The reason for ending the test was maximal effort achieved. The patient complained of shortness of breath during the stress test, which then resolved at the end of the test. ELECTROCARDIOGRAM: BASELINE: Showed sinus rhythm, normal axis, no significant ST-T changes at the baseline noted. [] EXERCISE: At the peak exercise level, [] No significant ST-T changes suggestive of ischemia noted. [] RECOVERY: During the recovery period, heart rate dropped appropriately. No significant ST-T changes in the recovery suggestive of ischemia noted. [] CONCLUSION: 1. Exercise capacity is good. 2. Heart rate response was appropriate 3. Blood pressure response was appropriate 4. Symptoms not suggestive of ischemia. 5. Stress test is not suggestive of ischemia. Electronically Signed On 11-09-2024 12:38:02 CDT by Lalo Weathers M.D. [email or web address] [id number]
[2024-10-30 12:08] VITALS: BMI 27.5
[2024-10-30 12:22] VITALS: BP 158/80; PULSE 87
== END 2024-10-30 11:49 | disposition home or self-care (01) ==
LOC: CDL 11:52
PROVIDERS: PCP Nurse Practitioner Family; Visit Provider Nurse Practitioner Family
DX: R07.89 Other chest pain (principal)
CPT/HCPCS: 93017

== ENCOUNTER → 2024-11-07 09:35 | Outpatient (BNVA) | payer SELFPAY | PROVIDERS: PCP Nurse Practitioner Family; Visit Provider Psychiatry & Neurology Psychiatry | DX: F41.1 Generalized anxiety disorder (principal); F33.1 Major depressive disorder, recurrent, moderate | CPT/HCPCS: 80061; 83036 ==

== ENCOUNTER 2024-12-31 05:37 | Day surgery (SDC) | payer BC, MEDICAID, SELFPAY ==
[2024-12-02 09:38] VITALS: BP 111/78; BMI 28.7
[2024-12-31 05:58] VITALS: BMI 25.1
[2024-12-31 05:59] VITALS: BP 124/88; PULSE 46; RESP 18; TEMP 36.6; O2SAT 100
--- NOTE | 2024-12-31 07:00 | P.ANESASSM_ITS ---
Pre-Anesthetic Assessment Height/Weight: Height 1.78 m Weight 79.379 kg Temp Pulse Resp BP Pulse Ox O2 Del Method 97.9 F 46 L 18 124/88 100 Room Air 12/31/24 05:59 12/31/24 05:59 12/31/24 05:59 12/31/24 05:59 12/31/24 05:59 12/31/24 05:59 Preop Diagnosis: screening Operation Date: 12/31/24 07:30 Proposed Procedures p Colonoscopy 43285 G0121 Z12.11(Not Applicable) - Adam Tony MD Familial anesthetic complications: none Was Beta Radha taken within 24 hours: N/A Was Clonidine taken within 24 hours: N/A Last intake: Intake Last Liquid Date 12/30/24 Last Liquid Time 22:00 Last Solid Date 12/29/24 Social Tobacco (vapes) and No alcohol (prev. ETOH/meth use. 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), pt states urine is clean today after discussion of anesthesia with drug use.) Exam alert and oriented x 3 Airway Submandibular: within normal limits Cervical ROM: within normal limits Mallampati: Class II Comments: Comments: poor dentition, multiple missing CV/HEM Hypertension H/O CP with negative stress test None reported Hepatic None reported GI Gastroesophageal Reflux Disease (controlled) Metabolic None reported Musc/skel None reported Neuropsych None reported Anesthetic Plan ASA status: 3 Anesthesia: Anesthesia Evaluation and MAC Risk of > 500 ml blood loss (7ml/kg in children): No Medications/Allergies Home Medications ?Medication ?Instructions ?Recorded ?Confirmed ?Last Taken ?Type acetaminophen 500 mg tablet 1,000 mg PO QID PRN Fever Or Pain 09/09/24 12/31/24 09/08/24 History (Tylenol Extra Strength) aspirin 81 mg tablet,delayed 81 mg PO DAILY #30 tabs 0 09/09/24 12/31/24 Unknown Rx release ibuprofen 200 mg tablet (Advil) 800 mg PO Q6H PRN Feve r Or Pain 09/09/24 12/31/24 09/08/24 History cetirizine 10 mg tablet (Zyrtec) 10 mg PO DAILY PRN Al lergy Symptoms 11/07/24 12/31/24 Unknown History losartan 25 mg tablet 25 mg PO DAILY 11/07/2406/25 Unknown History ondansetron 8 mg disintegrating 8 mg PO Q8H PRN nausea and 11/18/24 12/31/24 Unknown Rx tablet vomiting #3 tabs omeprazole 20 mg capsule,delayed 20 mg PO DAILY 12/26/24 12/31/24 History release Allergies Allergy/AdvReac Type Severity Reaction Status Date / Time lisinopril Allergy Severe swells up Verified 12/31/24 05:55 from it Penicillins Allergy Severe hives and Verified 12/31/24 05:55 feels like he is choking. Current Medications Generic Name Dose Route Start Last Admin Trade Name Freq PRN Reason Stop Dose Admin Sodium Chloride 1,000 mls @ 15 mls/hr 12/31/24 05:50 12/31/24 06:04 Sodium Chloride 0.9% IV 01/01/25 05:49 15 mls/hr .Q24H PRN Administration COLONOSCOPY FLUIDS PFSH Anesthesia Medical History Biliary sludge Methamphetamine use disorder, severe Psychiatric care Amphetamine abuse Generalized anxiety disorder Nicotine dependence, cigarettes, uncomplicated Adderall use disorder, moderate, in sustained remission, in controlled environment, dependence Major depressive disorder, recurrent, moderate Surgical History History of ankle surgery H/O gastric sleeve History of hand surgery History of facial surgery Family History Father Dementia Stroke Myocardial infarction Mother Myocardial infarction Social History Smoking and tobacco/nicotine status: never used tobacco/nicotine Quit status (tobacco/nicotine): considering quitting Second hand smoke exposure: Yes Alcohol intake: former Former alcohol use details: 08.15.24 Substance/Drug Use: former Former substance use details: 08.12.24 Adopted: No Caregiver/support person: No Lives independently: Yes Household members: other Details: 17 other residents [facility] Marital status: Legally Number of children: 4 Number of grandchildren: 0 Highest education level completed: 11th Grade service: No Current occupational status: unemployed Pets and animals: Yes Pets & animals: cat(s) Leisure activites: other Leisure activities details: Anglican activities Sexually active: No Do you think of yourself as: Straight/Heterosexual Current gender identity: Male Carmen/Yazidi: Rastafarian Special carmen needs: No Agree to transfusion: Yes
--- NOTE | 2024-12-31 07:02 | W.PM.OPSFHP ---
Same Day Surgery H&P Indication for Procedure/HPI DATE OF PROCEDURE: December 31, 2024 CHIEF COMPLAINT/INDICATIONFOR SURGICAL PROCEDURE: screening colonoscopy PREOP DIAGNOSIS: screening colonoscopy PLANNED PROCEDURE: Operation Date: 12/31/24 07:30 Proposed Procedures p Colonoscopy 98254 G0121 Z12.11(Not Applicable) - Adam Tony MD Medications/Allergies* Home Medications ?Medication ?Instructions ?Recorded ?Confirmed ?Type acetaminophen 500 mg tablet 1,000 mg PO QID PRN Fever Or Pain 09/09/24 12/31/24 History (Tylenol Extra Strength) ibuprofen 200 mg tablet (Advil) 800 mg PO Q6H PRN Fever Or Pain 09/09/24 12/31/24 History cetirizine 10 mg tablet (Zyrtec) 10 mg PO DAILY PRN Allergy Symptoms 11/07/24 12/31/24 History losartan 25 mg tablet 25 mg PO DAILY 11/07/24 12/31/24 History omeprazole 20 mg capsule,delayed 20 mg PO DAILY 12/26/24 12/26/24 History release Allergies/Adverse Reactions Allergy/AdvReac Type Severity Reaction Status Date / Time lisinopril Allergy Severe swells up Verified 12/31/24 05:55 from it Penicillins Allergy Severe hives and Verified 12/31/24 05:55 feels like he is choking. Current Medications: Generic Name Dose Route Start Last Admin Trade Name Freq PRN Reason Stop Dose Admin Sodium Chloride 1,000 mls @ 15 mls/hr 12/31/24 05:50 12/31/24 06:04 Sodium Chloride 0.9% IV 01/01/25 05:49 15 mls/hr .Q24H PRN Administration COLONOSCOPY FLUIDS Pertinent History/Comorbid Conditions* Medical History (Updated 09/17/24 @ 00:00 by OLINDA Ramos) Biliary sludge Methamphetamine use disorder, severe Psychiatric care Amphetamine abuse Generalized anxiety disorder Nicotine dependence, cigarettes, uncomplicated Adderall use disorder, moderate, in sustained remission, in controlled environment, dependence Major depressive disorder, recurrent, moderate Surgical History (Updated 08/20/24 @ 00:01 by OLINAD Ramos) History of ankle surgery H/O gastric sleeve History of hand surgery History of facial surgery Family History (Updated 09/17/20 @ 11:21 by Brielle Singh RN) Dementia Father Myocardial infarction Father Mother Stroke Father Social History Smoking and tobacco/nicotine status: never used tobacco/nicotine Quit status (tobacco/nicotine): considering quitting Second hand smoke exposure: Yes Alcohol intake: former Former alcohol use details: 08.15.24 Substance/Drug Use: former Former substance use details: 08.12.24 Adopted: No Caregiver/support person: No Lives independently: Yes Household members: other Details: 17 other residents Housing: Other Details: [facility] Marital status: Legally Number of children: 4 Number of grandchildren: 0 Highest education level completed: 11th Grade service: No Current occupational status: unemployed Pets and animals: Yes Pets & animals: cat(s) Leisure activites: other Leisure activities details: Protestant activities Sexually active: No Do you think of yourself as: Straight/Heterosexual Current gender identity: Male Carmen/Mu-Ism: Gnosticism Special carmen needs: No Agree to transfusion: Yes Pertinent Exam Findings alert, oriented x 3, clear to auscultation bilaterally, regular rate & rhythm and procedure specific exam findings abdomen soft, nt, nd Recommendations Risks and benefits of procedure reviewed and Patient/family agree to proceed Surgery/Procedure today Coding Level of Care Code Acute Code for Oscarg Silvana
--- NOTE | 2024-12-31 07:27 | PC.NURSE ---
cecum time 0724
[2024-12-31 07:41] VITALS: BP 98/49; PULSE 53; RESP 18; O2SAT 100
--- NOTE | 2024-12-31 07:46 | ANE.PACU2 ---
Inpatient post-anesthesia follow up: Airway intact: Yes Vital signs: Temperature 97.9 F Pulse Rate 46 Respiratory Rate 18 Blood Pressure 124/88 Pulse Oximetry 100 Oxygen Delivery Me thod Room Air Oxygen Flow Rate Fraction of Inspir ed Oxygen Hydration adequate: Yes Nausea and vomiting: No Pain level: 1 Mental status: Baseline
[2024-12-31 08:08] VITALS: BP 121/72; PULSE 57; RESP 16; O2SAT 100
== END 2024-12-31 08:08 | disposition home or self-care (01) ==
PROVIDERS: PCP Nurse Practitioner Family; Visit Provider Student in an Organized Health Care Education/Training Program
PROC: 0DJD8ZZ Inspection of Lower Intestinal Tract, Via Natural or Artificial Opening Endoscopic (ICD-10-PCS; CPT 45378; principal; 2024-12-31 07:30)
DX: Z12.11 Encounter for screening for malignant neoplasm of colon (principal); K63.5 Polyp of colon; K21.9 Gastro-esophageal reflux disease without esophagitis; F41.9 Anxiety disorder, unspecified; F33.9 Major depressive disorder, recurrent, unspecified; F17.210 Nicotine dependence, cigarettes, uncomplicated; F15.10 Other stimulant abuse, uncomplicated; I10 Essential (primary) hypertension; Z79.82 Long term (current) use of aspirin
CPT/HCPCS: 45385; 88305; J2371; J2704; J7030; J9999